=== PATIENT | female | born 1970 | race Caucasian/White ===

== ENCOUNTER 2023-02-09 07:28 | Outpatient (OUT) | payer OTHER, SELFPAY ==
[2023-02-09 07:54] LABS: Basophils Absolute Auto 0.1 10^3/uL (0.0-0.1); Basophils Percent Auto 0.7 % (0.2-2.0); Eosinophils Absolute Auto 0.1 10^3/uL (0.0-0.7); Eosinophils Percent Auto 1.5 % (0.9-7.0); Hematocrit 40.1 % (36.0-48.0); Hemoglobin 13.3 g/dL (12.0-16.0); Immature Granulocytes Abs Auto 0.04 10^3/uL (0.00-0.03); Immature Granulocytes Pct Auto 0.5 % (0.0-0.5); Lymphocytes Absolute Auto 2.1 10^3/uL (1.2-3.8); Lymphocytes Percent Auto 27.7 % (20.5-60.0); Mean Corpuscular HGB Conc 33.2 g/dL (29.9-35.2); Mean Corpuscular Hemoglobin 27.5 pg (26.7-34.0); Mean Platelet Volume 8.4 fL (9.5-13.5); Monocytes Absolute Auto 0.5 10^3/uL (0.3-0.8); Neutrophils Absolute Auto 4.8 10^3/uL (1.4-6.5); Neutrophils Percent Auto 63.6 % (43.0-75.0); Platelet Count 376 10^3/uL (150-450); Red Blood Count 4.83 10^6/uL (4.20-5.40); White Blood Count 7.5 10^3/uL (4.0-11.0)
[2023-02-09 09:45] LABS: Alanine Aminotransferase 25 U/L (14-59); Albumin Globulin Ratio 0.8; Albumin Level 3.4 g/dL (3.4-5.0); Alkaline Phosphatase 117 U/L (46-116); Anion Gap 14.7; Aspartate Amino Transferase 11 U/L (15-37); BUN Creatinine Ratio 17.1; Bilirubin Total 0.3 mg/dL (0.2-1.0); Calcium 8.7 mg/dL (8.5-10.1); Carbon Dioxide 25.2 mmol/L (21.0-32.0); Chloride 102 mmol/L (98-107); Chol HDL Ratio 4.4; Cholesterol 209 mg/dL (<=200); Estimated GFR (African America >60 (>=60); Estimated GFR (Non-African Ame >60 (>=60); Free T3 2.65 pg/mL (2.18-3.98); Globulin 4.1 g/dL; Glucose 107 mg/dL (74-106); HDL Cholesterol 47 mg/dL (40-60); Potassium 3.9 mmol/L (3.5-5.1); Sodium 138 mmol/L (136-145); Total Protein 7.5 g/dL (6.4-8.2); Triglycerides 271 mg/dL (<=150); VLDL CHOLESTEROL 54.2 mg/dL
[2023-02-09 09:46] LABS: Estimated Average Glucose 108 mg/dL; Glycohemoglobin A1C 5.4 % (4.5-6.2)
[2023-02-11 11:08] LABS: Insulin 29.1 uIU/mL (2.6-24.9)
== END 2023-02-09 07:29 | disposition home or self-care (01) ==
LOC: LAB 07:29
PROVIDERS: PCP Family Medicine; Visit Provider Family Medicine
DX: Z00.00 Encounter for general adult medical examination without abnormal findings (principal)
CPT/HCPCS: 36415; 80053; 80061; 83036; 83525; 84436; 84443; 84481; 85025

== ENCOUNTER 2023-02-13 16:57 | Outpatient (REF) | payer OTHER, SELFPAY ==
[2023-02-14 14:38] LABS: Occult Blood Negative
== END 2023-02-13 16:58 | disposition home or self-care (01) ==
LOC: LAB 16:57
PROVIDERS: PCP Family Medicine; Visit Provider Family Medicine
DX: Z12.12 Encounter for screening for malignant neoplasm of rectum (principal)
CPT/HCPCS: G0328

== ENCOUNTER 2023-02-26 20:50 | Outpatient (OUT) | payer OTHER, SELFPAY | END 2023-02-26 20:51 | disposition home or self-care (01) | LOC: SLEEP 20:50 | PROVIDERS: PCP Family Medicine; Visit Provider Family Medicine | DX: G47.33 Obstructive sleep apnea (adult) (pediatric) (principal) | CPT/HCPCS: 95810 ==

== ENCOUNTER 2023-03-20 20:46 | Outpatient (OUT) | payer OTHER, SELFPAY | END 2023-03-20 20:47 | disposition home or self-care (01) | LOC: SLEEP 20:55 | PROVIDERS: PCP Family Medicine; Visit Provider Family Medicine | DX: G47.33 Obstructive sleep apnea (adult) (pediatric) (principal) | CPT/HCPCS: 95811 ==

== ENCOUNTER 2024-02-05 10:19 | Outpatient (OUT) | payer OTHER, SELFPAY ==
[2024-02-05 11:21] LABS: Basophils Percent Auto 0.7 % (0.2-2.0); Eosinophils Absolute Auto 0.1 10^3/uL (0.0-0.7); Eosinophils Percent Auto 1.2 % (0.9-7.0); Hematocrit 42.5 % (36.0-48.0); Hemoglobin 13.3 g/dL (12.0-16.0); Immature Granulocytes Abs Auto 0.02 10^3/uL (0.00-0.03); Immature Granulocytes Pct Auto 0.3 % (0.0-0.5); Lymphocytes Percent Auto 33.9 % (20.5-60.0); Mean Corpuscular HGB Conc 31.3 g/dL (29.9-35.2); Mean Corpuscular Hemoglobin 26.8 pg (26.7-34.0); Mean Corpuscular Volume 85.7 fL (81.0-99.0); Mean Platelet Volume 9.3 fL (9.5-13.5); Monocytes Absolute Auto 0.3 10^3/uL (0.3-0.8); Monocytes Percent Auto 5.6 % (1.7-12.0); Neutrophils Absolute Auto 3.4 10^3/uL (1.4-6.5); Neutrophils Percent Auto 58.3 % (43.0-75.0); Platelet Count 343 10^3/uL (150-450); Red Blood Count 4.96 10^6/uL (4.20-5.40); Red Cell Distribution Width 13.1 % (11.0-15.0); White Blood Count 5.9 10^3/uL (4.0-11.0)
[2024-02-05 11:28] LABS: Alanine Aminotransferase 22 U/L (14-59); Albumin Globulin Ratio 0.9; Albumin Level 3.5 g/dL (3.4-5.0); Alkaline Phosphatase 127 U/L (46-116); Anion Gap 9.1; Aspartate Amino Transferase 10 U/L (15-37); BUN Creatinine Ratio 18.8; Bilirubin Total 0.5 mg/dL (0.2-1.0); Calcium 9.5 mg/dL (8.5-10.1); Carbon Dioxide 31.1 mmol/L (21.0-32.0); Chloride 105 mmol/L (98-107); Chol HDL Ratio 3.9; Cholesterol 206 mg/dL (<=200); Estimated GFR (African America >60 (>=60); Estimated GFR (Non-African Ame >60 (>=60); Globulin 3.9 g/dL; Glucose 96 mg/dL (74-106); HDL Cholesterol 53 mg/dL (40-60); Potassium 4.2 mmol/L (3.5-5.1); Sodium 141 mmol/L (136-145); Thyroid Stimulating Hormone 0.522 uIU/mL (0.358-3.740); Total Protein 7.4 g/dL (6.4-8.2); Triglycerides 142 mg/dL (<=150); VLDL CHOLESTEROL 28.4 mg/dL
[2024-02-05 11:29] LABS: Estimated Average Glucose 105 mg/dL; Glycohemoglobin A1C 5.3 % (4.5-6.2)
== END 2024-02-05 10:20 | disposition home or self-care (01) ==
LOC: LAB 10:21
PROVIDERS: PCP Family Medicine; Visit Provider Family Medicine
DX: Z00.00 Encounter for general adult medical examination without abnormal findings (principal); E03.9 Hypothyroidism, unspecified
CPT/HCPCS: 36415; 80053; 80061; 83036; 84439; 84443; 85025

== ENCOUNTER 2024-02-19 09:16 | Outpatient (OUT) | payer OTHER, SELFPAY ==
--- NOTE | 2024-02-19 09:19 | MM_ITS ---
Patient Name: NIKIA TORRES MR#: [id number] : 1970 Exam Date: 02/19/2024 Ordering Doctor: DR Tarun Ardon . RADIOLOGY REPORT PROCEDURE: MM TOMOSYNTHESIS SCREENING BI COMPARISON: MG MAMM SCREEN 3D SADI CAD, 02/21/2022. MG MAMM SCREEN SADI W CAD, 09/03/2018. INDICATIONS: Screening Calculator Name NCI Breast Cancer Risk Assessment Tool 5 Year Breast Cancer Risk 0.90% Lifetime Breast Cancer Risk 7.00% Personal Breast Cancer No Personal Ovarian Cancer No Treatments None Family Cancers Grandfather-paternal with lung cancer at age ~55. LOCATION: [facility] BREAST COMPOSITION: The breasts are heterogeneously dense,which may obscure small masses. FINDINGS: DIAGNOSTIC CATEGORY 1--NEGATIVE. RIGHT BREAST: No significant suspicious finding. No significant change has occurred. LEFT BREAST: No significant suspicious finding. No significant change has occurred. RECOMMENDATIONS: ROUTINE MAMMOGRAM AND CLINICAL EVALUATION IN 12 MONTHS. PLEASE NOTE: A NORMAL MAMMOGRAM DOES NOT EXCLUDE THE POSSIBILITY OF BREAST CANCER. A CLINICALLY SUSPICIOUS PALPABLE LUMP SHOULD BE BIOPSIED. Dictated by: Garett Zelaya M.D. on 02/19/2024 at 14:41 Approved by: Garett Zelaya M.D. on 02/19/2024 at 14:47
--- OUTSIDE RECORDS SUMMARY | 2024-02-19 09:22 | XMS_ITS | CCD ---
Author Organization [facility] Care Team Providers Care Crematory Attendant Name Role Phone LIZANDRO, DR PABON Admitting Unavailable MEGY, DR PABON Attending Unavailable HOY, DR PABON Consulting Unavailable HOY, DR PABON Primary Care Unavailable HOY, DR PABON Admitting Unavailable HOY, DR PABON Attending Unavailable HOY, DR PABON Consulting Unavailable HOY, DR PABON Primary Care Unavailable HOY, DR PABON Primary Care Unavailable HOY, DR PABON Admitting Unavailable HOY, DR PABON Attending Unavailable HOY, DR PABON Consulting Unavailable WEST, DR PARISH Yanes Consulting Unavailable PAY, DR STRONG Attending Unavailable PAY, DR STRONG Admitting Unavailable PAY, DR STRONG Consulting Unavailable LIZANDOR, DR PABON Primary Care Unavailable Sosa, Stevenson Consulting Unavailable JODI, DR SANDY Kincaid Consulting Unavailable JODI, DR SANDY Kincaid Admitting Unavailable LIZANDRO, DR PABON Primary Care Unavailable JODI, DR SANDY Kincaid Attending Unavailable SHAHID, DR CONLEY Attending Unavailable SHAHID, DR CONLEY Consulting Unavailable SHAHID, DR CONLEY Admitting Unavailable LIZANDRO, DR PABON Primary Care Unavailable Malinda Marion Unavailable Jessee AHUMADA Attending Unavailable Cm Ardon Referring Unavailable Medications Current Medications Medication Drug Class(es) Dates Sig (Normalized) Sig (Original) fluticasone propionate 0.05 mg/actuat metered dose nasal spray (1 source) Corticosteroid Start: 04-27-2023 take 2 spray(s) nasal route once daily Fluticasone Propionate 50 MCG/ACT 2 sprays Nasally Once a day for 14 day(s) Apr, Active levothyroxine (1 source) l-Thyroxine Levothyroxine Sodium Active liothyronine sodium 0.005 mg oral tablet (1 source) l-Triiodothyronine Liothyronine Sodium 5 MCG Oral for 30 Days Active predniSONE 20 mg oral tablet (1 source) Start: 04-27-2023 take 1 tablet by mouth every twelve hours predniSONE 20 MG 1 tablet Orally bid for 5 day(s) Apr, Active Problems Active Problems Problem Classification Problem Date Documented Da te Episodic/Chronic Disorders of teeth and jaw (6 sources) Other specified disorders of teeth and supporting structures; Translations: [Periapical abscess without sinus] Onset: 01-07-2022 Episodic Essential hypertension (1 source) Essential (primary) hypertension; Translations: [ESSENTIAL PRIMARY HYPERTENSION] Onset: 11-16-2021 Chronic Headache; including migraine (4 sources) Headache; including migraine; Translations: [HEADACHE UNSPECIFIED] Onset: 11-14-2021 Immunizations and screening for infectious disease (1 source) Contact with and (suspected) exposure to other viral communicable diseases Episodic Other aftercare (1 source) Other termite exterminator (current) drug therapy; Translations: [OTH LONG-TERM CURRENT DRUG THERAPY] Onset: 01-10-2022 Episodic Other screening for suspected conditions (not mental disorders or infectious disease) (4 sources) Encounter for screening mammogram for malignant neoplasm of breast; Translations: [ENC SCR MAMMO MALIG NEOPLASM BREAST] Onset: 02-21-2022 Episodic Other upper respiratory infections (1 source) Chronic sinusitis, unspecified; Translations: [CHRONIC SINUSITIS UNSPECIFIED] Onset: 01-08-2022 Chronic Other upper respiratory infections (1 source) Acute upper respiratory infection, unspecified Episodic Residual codes; unclassified (1 source) Family history of malignant neoplasm of trachea, bronchus and lung; Translations: [FAM HX MALIG NEOPLSM TRACH BRON LNG] Onset: 02-23-2022 Episodic Screening and history of mental health and substance abuse codes (1 source) Personal history of nicotine dependence; Translations: [PERSONAL HISTORY OF NICOTINE DEPEND] Onset: 01-08-2022 Episodic Past or Other Problems Problem Classification Problem Date Documented Da te Episodic/Chronic Fluid and electrolyte disorders (1 source) Dehydration; Translations: [DEHYDRATION] Onset: 11-16-2021 Episodic Syncope (1 source) Syncope and collapse; Translations: [SYNCOPE AND COLLAPSE] Onset: 11-16-2021 Episodic Results Test Name Value Interpretation Reference Range Facility COVID + FLU Quick Testingon 04-27-2023 SARS-CoV-2 (COVID-19) RNA ILDEFONSO+probe Ql (Unsp spec) Negative [employer] Other COVID + FLU Quick Testing Negative [employer] Other MG MAMM SCREEN 3D SADI CADon 02-21-2022 MG MAMM SCREEN 3D SADI CAD Patient: NIKIA TORRES Exam Date: 02/21/2022 : 1970 Gender:F Ordering : DR CM ARDON . Admission #: [id number] Family : Order #: [id number] CLICK HERE TO VIEW EXAM RADIOLOGY REPORT PROCEDURE: MAMMOGRAM SCREENING 3D BILATERAL CAD COMPARISON: MG MAMM SCREEN SADI W CAD, 09/03/2018. INDICATIONS: Screening mammography Calculator Name NCI Breast Cancer Risk Assessment Tool 5 Year Breast Cancer Risk 0.80% Lifetime Breast Cancer Risk 7.20% Personal Breast Cancer No Personal Ovarian Cancer No Treatments None Family Cancers Grandfather-paternal with lung cancer at age 55. LOCATION: [facility] BREAST COMPOSITION: Heterogeneously dense,which may obscure small masses. FINDINGS: DIAGNOSTIC CATEGORY 2--BENIGN FINDING. NO CHANGE FROM COMPARISON. Scattered benign-appearing lymph nodes are present. RIGHT BREAST: No significant suspicious finding. Stable cluster of microcalcifications identified posterior inner breast at the chest wall, best seen on the CC projection. LEFT BREAST: No significant suspicious finding. RECOMMENDATIONS: ROUTINE MAMMOGRAM AND CLINICAL EVALUATION IN 12 MONTHS. PLEASE NOTE: A NORMAL MAMMOGRAM DOES NOT EXCLUDE THE POSSIBILITY OF BREAST CANCER. A CLINICALLY SUSPICIOUS PALPABLE LUMP SHOULD BE BIOPSIED. Dictated by: Parish Arredondo MD on 02/21/2022 at 12:10 Approved by: Parish Arredondo MD on 02/21/2022 at 12:26 Normal [facility] OCC BLD IMMUNO SCREENon 01-12 OCCULT BLOOD Negative Normal NEGATIVE [facility] Comment on above: Performed By: #### O BSCRN #### [facility] [address] [address] [address] Lucille Lama INSULINon 01-19-2022 Insulin 25.6 uIU/mL Critically high 2.6-24.9 [facility] Comment on above: Performed By: #### I NSULIN #### [facility] [address] [address] [address] Lucille Lama CBC AUTO DIFFon 01-18-2022 BASO # 0.0 103/ul Normal 0.0-0.1 [facility] Comment on above: Performed By: #### C BC #### [facility] [address] [address] [address] Lucille Lama Basophils/100 WBC (Bld) 0.5 % Normal 0.2-2.0 [facility] Comment on above: Performed By: #### C BC #### [facility] [address] [address] [address] Lucille Lama EO # 0.1 103/ul Normal 0.0-0.7 [facility] Comment on above: Performed By: #### C BC #### [facility] [address] [place] [address] Dr. Lucille Lama Eosinophils/100 WBC (Bld) 1.5 % Normal 0.9-7.0 [facility] Comment on above: Performed By: #### C BC #### [facility] [address] [place] [address] Dr. Lucille Lama Erythrocyte distribution width (RBC) [Ratio] 12.5 % Normal 11.0-15.0 [facility] Comment on above: Performed By: #### C BC #### [facility] [address] [place] [address] Dr. Lucille Lama Hematocrit (Bld) [Volume fraction] 42.7 % Normal 36.0-48.0 [facility] Comment on above: Performed By: #### C BC #### [facility] [address] [place] [address] Dr. Lucille Lama Hemoglobin (Bld) [Mass/Vol] 13.2 g/dL Normal 12.0-16.0 [facility] Comment on above: Performed By: #### C BC #### [facility] [address] [place] [address] Dr. Lucille Lama IG # 0.05 10e3/ul Critically high 0.00-0.03 [facility] Comment on above: Performed By: #### C BC #### [facility] [address] [place] [address] Dr. Lucille Lama IG % 0.6 % Critically high 0.0-0.5 [facility] Comment on above: Performed By: #### C BC #### [facility] [address] [place] [address] Dr. Lucille Lama LYMPH # 2.3 103/ul Normal 1.2-3.8 [facility] Comment on above: Performed By: #### C BC #### [facility] [address] [place] [address] Dr. Lucille Lama Lymphocytes/100 WBC (Bld) 28.6 % Normal 20.5-60.0 [facility] Comment on above: Performed By: #### C BC #### [facility] [address] [place] [address] Dr. Lucille Lama MANUAL DIFF REQ NO Normal [facility] Comment on above: Performed By: #### C BC #### [facility] [address] [place] [address] Dr. Lucille Lama MCH (RBC) [Entitic mass] 26.2 pg Critically low 26.7-34.0 [facility] Comment on above: Performed By: #### C BC #### [facility] [address] [place] [address] Dr. Lucille Lama MCHC (RBC) [Mass/Vol] 30.9 g/dL Normal 29.9-35.2 [facility] Comment on above: Performed By: #### C BC #### [facility] [address] [place] [address] Dr. Lucille Lama MCV (RBC) [Entitic vol] 84.9 fL Normal 81.0-99.0 [facility] Comment on above: Performed By: #### C BC #### [facility] [address] [place] [address] Dr. Lucille Lama MONO # 0.4 103/ul Normal 0.3-0.8 [facility] Comment on above: Performed By: #### C BC #### [facility] [address] [place] [address] Dr. Lucille Lama Monocytes/100 WBC (Bld) 5.2 % Normal 1.7-12.0 [facility] Comment on above: Performed By: #### C BC #### [facility] [address] [place] [address] Dr. Luiclle Lama NEUT # 5.0 103/ul Normal 1.4-6.5 [facility] Comment on above: Performed By: #### C BC #### [facility] [address] [place] [address] Dr. Lucille Lama Neutrophils/100 WBC (Bld) 63.6 % Normal 43.0-75.0 [facility] Comment on above: Performed By: #### C BC #### [facility] [address] [place] [address] Dr. Lucille Lama Platelet mean volume (Bld) [Entitic vol] 8.5 fL Critically low 9.5-13.5 [facility] Comment on above: Performed By: #### C BC #### [facility] [address] [place] [address] Dr. Lucille Lama PLT 436 103/ul Normal 150-450 [facility] Comment on above: Performed By: #### C BC #### [facility] [address] [place] [address] Dr. Lucille Lama RBC 5.03 106/ul Normal 4.20-5.40 [facility] Comment on above: Performed By: #### C BC #### [facility] [address] [place] [address] Dr. Lucille Lama WBC 7.9 103/ul Normal 4.0-11.0 [facility] Comment on above: Performed By: #### C BC #### [facility] [address] [place] [address] Dr. Lucille Lama FREE THYROXINE INDEX T7on FTI 2.34 Normal 1.30-4.50 [facility] Comment on above: Performed By: #### C MP, TSH, LIPID, T7 ####[facility] [address] [address]Dr. Lucille Lama T3U 30.0 % Normal 30.0-39.0 [facility] Comment on above: Performed By: #### C MP, TSH, LIPID, T7 ####[facility] [address] [address]DrJessica Lama T4 [Mass/Vol] 7.80 ug/dL Normal 4.80-13.[address] [facility] Comment on above: Performed By: #### C MP, TSH, LIPID, T7 ####[facility] [address] [id number] Lama GLYCOHEMOGLOBIN A1Con 2021 ADA RECOMMENDATION SEE BELOW Normal [facility] Comment on above: Result Comment: ADA RECOMMENDED LIMIT 4.0 - 6.0 ADA THERAPEUTIC TARGET < 7.0 ACTION SUGGESTED > 7.0 Performed By: #### A 1C ####[facility] [address] [address]Dr. Lucille Lama Glucose [Mass/Vol] 120 mg/dL Normal [facility] Comment on above: Performed By: #### A 1C ####[facility] [address] [address]Dr. Lucille Lama HbA1c (Bld) [Mass fraction] 5.8 % Normal 4.5-6.2 [facility] Comment on above: Performed By: #### A 1C ####[facility] [address] [address]Dr. Lucille Lama IRONon 01-18-2022 Iron [Mass/Vol] 48.0 ug/dL Critically low 50.0-170.0 [facility] Comment on above: Performed By: #### I BRIANA #### [facility] [address] [address] [address] Lucille Lama LIPID PROFILEon 01-18-2022 CHOL-HDL RATIO NORM SEE BELOW Normal [facility] Comment on above: Result Comment: 3.3 - 4.4 LOW RISK 4.4 - 7.1 AVERAGE RISK 7.1 - 11.0 MODERATE RISK >11.0 HIGH RISK Performed By: #### C MP, TSH, LIPID, T7 ####[facility] [address] [address]Dr. Lucille Lama Cholesterol [Mass/Vol] 217 mg/dL Critically high <=200 [facility] Comment on above: Performed By: #### C MP, TSH, LIPID, T7 ####[facility] [address] [place], [place] [address]Ee. Lucille Lama Cholesterol in HDL [Mass/Vol] 38 mg/dL Critically low 40-60 [facility] Comment on above: Performed By: #### C MP, TSH, LIPID, T7 ####[facility] [address] [id number]. Lucille Lama Cholesterol in LDL [Mass/Vol] 124.8 mg/dL Normal [facility] Comment on above: Performed By: #### C MP, TSH, LIPID, T7 ####[facility] [address] [id number]. Lucille Lama Cholesterol.total/Ch olesterol in HDL [Mass ratio] 5.7 {ratio} Normal [facility] Comment on above: Performed By: #### C MP, TSH, LIPID, T7 ####[facility] [address] [id number]. Lucille Lama HDL NORMAL > or = 60 mg/dl - LOW CARDIOVASCULAR RISK <40 mg/dl - HIGH CARDIOVASCULAR RISK Normal [facility] Comment on above: Performed By: #### C MP, TSH, LIPID, T7 ####[facility] [address] [id number]. Lucille Lama LDL CALC NORMAL SEE BELOW Normal [facility] Comment on above: Result Comment: <100 mg/dl OPTIMAL 100 - 129 mg/dl NEAR OR ABOVE OPTIMAL 130 - 159 mg/dl BORDERLINE HIGH 160 - 189 mg/dl HIGH >190 mg/dl VERY HIGH Performed By: #### C MP, TSH, LIPID, T7 ####[facility] [address] [id number]. Lucille Lama Triglyceride [Mass/Vol] 271 mg/dL Critically high <=150 [facility] Comment on above: Performed By: #### C MP, TSH, LIPID, T7 ####[facility] [address] [address]Dr. Lucille Lama VLDL CALC 54.2 mg/dL Normal [facility] Comment on above: Performed By: #### C MP, TSH, LIPID, T7 ####[facility] [address] [address]Dr. Lucille Lama PROF 14(COMP METB)on 022 Albumin [Mass/Vol] 3.4 g/dL Normal 3.4-5.0 [facility] Comment on above: Performed By: #### C MP, TSH, LIPID, T7 ####[facility] [address] [address]Dr. Lucille Lama Albumin/Globulin [Mass ratio] 0.8 {ratio} Normal [facility] Comment on above: Performed By: #### C MP, TSH, LIPID, T7 ####[facility] [address] [address]Dr. Lucille Lama ALP [Catalytic activity/Vol] 115 U/L Normal 46-116 [facility] Comment on above: Performed By: #### C MP, TSH, LIPID, T7 ####[facility] [address] [address]Dr. Lucille Lama ALT [Catalytic activity/Vol] 35 U/L Normal 14-59 [facility] Comment on above: Performed By: #### C MP, TSH, LIPID, T7 ####[facility] [address] [address]Dr. Lucille Lama Anion gap [Moles/Vol] 11.4 mmol/L Normal [facility] Comment on above: Performed By: #### C MP, TSH, LIPID, T7 ####[facility] [address] [address]Dr. Lucille Lama AST [Catalytic activity/Vol] 16 U/L Normal 15-37 [facility] Comment on above: Performed By: #### C MP, TSH, LIPID, T7 ####[facility] [address] [address]Dr. Lucille Lama Bilirubin [Mass/Vol] 0.5 mg/dL Normal 0.2-1.0 [facility] Comment on above: Performed By: #### C MP, TSH, LIPID, T7 ####[facility] [address] [address]Dr. Lucille Lama Calcium [Mass/Vol] 9.0 mg/dL Normal 8.5-10.1 [facility] Comment on above: Performed By: #### C MP, TSH, LIPID, T7 ####[facility] [address] [place], [place] [address]Dr. Lucille Lama Chloride [Moles/Vol] 103 mmol/L Normal 98-107 [facility] Comment on above: Performed By: #### C MP, TSH, LIPID, T7 ####[facility] [address] [place], [place] [address]Dr. Lucille Lama CO2 [Moles/Vol] 26.4 mmol/L Normal 21.0-32.[address] [facility] Comment on above: Performed By: #### C MP, TSH, LIPID, T7 ####[facility] [address] [place], [place] [address]Dr. Lucille Lama Creatinine [Mass/Vol] 0.76 mg/dL Normal 0.55-1.02 [facility] Comment on above: Performed By: #### C MP, TSH, LIPID, T7 ####[facility] [address] [place], [place] [address]Dr. Lucille Lama EGFR-AF [place]IZ[place] >60 Normal >=[address] [facility] Comment on above: Performed By: #### C MP, TSH, LIPID, T7 ####[facility] [address] [place], [place] [address]Dr. Lucille Lama EGFR-NON AF [place]IZEN [place] >60 Normal >=60 [facility] Comment on above: Performed By: #### C MP, TSH, LIPID, T7 ####[facility] [address] [place], [place] [address]Dr. Lucille Lama Globulin (S) [Mass/Vol] 4.2 g/dL Normal [facility] Comment on above: Performed By: #### C MP, TSH, LIPID, T7 ####[facility] [address] [id number]. Lucille Lama Glucose [Mass/Vol] 89 mg/dL Normal 74-106 [facility] Comment on above: Performed By: #### C MP, TSH, LIPID, T7 ####[facility] [address] [address]Dr. Lucille Lama Potassium [Moles/Vol] 3.8 mmol/L Normal 3.5-5.1 [facility] Comment on above: Performed By: #### C MP, TSH, LIPID, T7 ####[facility] [address] [id number]. Lucille Lama Protein [Mass/Vol] 7.6 g/dL Normal 6.4-8.2 [facility] Comment on above: Performed By: #### C MP, TSH, LIPID, T7 ####[facility] [address] [address]Dr. Lucille Lama Sodium [Moles/Vol] 137 mmol/L Normal 136-145 [facility] Comment on above: Performed By: #### C MP, TSH, LIPID, T7 ####[facility] [address] [address]Dr. Lucille Lama Urea nitrogen [Mass/Vol] 8.0 mg/dL Normal 7.0-18.0 [facility] Comment on above: Performed By: #### C MP, TSH, LIPID, T7 ####[facility] [address] [address]Dr. Lucille Lama Urea nitrogen/Creatinine [Mass ratio] 10.5 mg/mg Normal [facility] Comment on above: Performed By: #### C MP, TSH, LIPID, T7 ####[facility] [address] [address]Dr. Lucille Lama TSHon 01-18-2022 TSH 1.277 uIU/mL Normal 0.358-3.740 [facility] Comment on above: Performed By: #### C MP, TSH, LIPID, T7 ####[facility] [address] [place], [place] [address]Dr. Lucille Lama CBC AUTO DIFFon 01-07-2022 BASO # 0.1 103/ul Normal 0.0-0.1 [facility] Comment on above: Performed By: #### C BC ####[facility] [address] [id number]. Lucille Lama Basophils/100 WBC (Bld) 0.4 % Normal 0.2-2.0 [facility] Comment on above: Performed By: #### C BC ####[facility] [address] [place], [place] [address]Dr. Lucille Lama EO # 0.0 103/ul Normal 0.0-0.7 [facility] Comment on above: Performed By: #### C BC ####[facility] [address] [place], [place] [address]Dr. Lucille Lama Eosinophils/100 WBC (Bld) 0.2 % Critically low 0.9-7.0 [facility] Comment on above: Performed By: #### C BC ####[facility] [address] [place], [place] [address]Dr. Lucille Lama Erythrocyte distribution width (RBC) [Ratio] 12.4 % Normal 11.0-15.0 [facility] Comment on above: Performed By: #### C BC ####[facility] [address] [place], [place] [address]Dr. Lucille Lama Hematocrit (Bld) [Volume fraction] 44.5 % Normal 36.0-48.0 [facility] Comment on above: Performed By: #### C BC ####[facility] [address] [place], [place] [address]Dr. Lucille Lama Hemoglobin (Bld) [Mass/Vol] 14.2 g/dL Normal 12.0-16.0 [facility] Comment on above: Performed By: #### C BC ####[facility] [address] [place], [place] [address]Dr. Lucille Kelby IG # 0.05 10e3/ul Critically high 0.00-0.03 [facility] Comment on above: Performed By: #### C BC ####[facility] [address] [id number]. Lucille Kelby IG % 0.4 % Normal 0.0-0.5 [facility] Comment on above: Performed By: #### C BC ####[facility] [address] [address]Dr. Lucille Kelby LYMPH # 1.7 103/ul Normal 1.2-3.8 [facility] Comment on above: Performed By: #### C BC ####[facility] [address] [id number]. Lucille Kelby Lymphocytes/100 WBC (Bld) 13.5 % Critically low 20.5-60.0 [facility] Comment on above: Performed By: #### C BC ####[facility] [address] [address]Dr. Adepatricia Lama MANUAL DIFF REQ NO Normal [facility] Comment on above: Performed By: #### C BC ####[facility] [address] [id number]. Lucille Kelby MCH (RBC) [Entitic mass] 26.5 pg Critically low 26.7-34.0 [facility] Comment on above: Performed By: #### C BC ####[facility] [address] [address]Dr. Lucille Lama MCHC (RBC) [Mass/Vol] 31.9 g/dL Normal 29.9-35.2 [facility] Comment on above: Performed By: #### C BC ####[facility] [address] [id number]. Lucille Kelby MCV (RBC) [Entitic vol] 83.0 fL Normal 81.0-99.0 [facility] Comment on above: Performed By: #### C BC ####[facility] [address] [place], [place] [address]Dr. Lucille Lama MONO # 0.5 103/ul Normal 0.3-0.8 [facility] Comment on above: Performed By: #### C BC ####[facility] [address] [address]Dr. Lucille Lama Monocytes/100 WBC (Bld) 4.1 % Normal 1.7-12.0 [facility] Comment on above: Performed By: #### C BC ####[facility] [address] [address]Dr. Lucille Lama NEUT # 10.0 103/ul Critically high 1.4-6.[address] [facility] Comment on above: Performed By: #### C BC ####[facility] [address] [address]Dr. Lucille Lama Neutrophils/100 WBC (Bld) 81.4 % Critically high 43.0-75.0 [facility] Comment on above: Performed By: #### C BC ####[facility] [address] [address]Dr. Lucille Lama Platelet mean volume (Bld) [Entitic vol] 8.8 fL Critically low 9.5-13.5 [facility] Comment on above: Performed By: #### C BC ####[facility] [address] [address]Dr. Lucille Lama PLT 375 103/ul Normal 150-450 [facility] Comment on above: Performed By: #### C BC ####[facility] [address] [place], [place] [address]Dr. Lucille Lama RBC 5.36 106/ul Normal 4.20-5.40 [facility] Comment on above: Performed By: #### C BC ####[facility] [address] [place], [place] [address]Dr. Lucille Lama WBC 12.3 103/ul Critically high 4.0-11.[address] [facility] Comment on above: Performed By: #### C BC ####[facility] [address] [place], [place] [address]Dr. Lucille Lama LACTATE/LACTIC ACIDon 2021 Lactate [Moles/Vol] 1.3 mmol/L Normal 0.4-1.9 [facility] [place] Comment on above: Performed By: #### L ACT #### [facility] [address] [address] [address] Lucille Lama CARDIAC SANDY ADMITon 022 CK [Catalytic activity/Vol] 36 U/L Normal 26-192 [facility] Comment on above: Performed By: #### T SH, CMADM, CMP ####[facility] [address] [id number]. Lucille Lama CK.MB [Mass/Vol] 0.63 ng/mL Normal <=3.[address] [facility] Comment on above: Performed By: #### T SH, CMADM, CMP ####[facility] [address] [address]DrJessica Lama HSTROP 5.5 pg/mL Normal 4.0-51.3 [facility] Comment on above: Result Comment: CUT- OFF POINTS HAVE BEEN ESTABLISHED BASED ON THE FOURTH UNIVERSAL DEFINITIONS OF MYOCARDIAL INFARCTION. THE UPPER REFERENCE LIMIT (URL) OF TROPONIN, DEFINED THE 99TH PERCENTILE OF cTnI DISTRIBUTION IN A REFERENCE POPULATION, HAS BEEN CONFIRMED THE DECISION THRESHOLD FOR [place] DIAGNOSIS. Performed By: #### T MARLON, CMADM, CMP ####[facility] [id number] [address]Dr. Lucille Lama FREDA 30 ng/mL Normal 9-82 [facility] Comment on above: Performed By: #### T SH, CMADM, CMP ####[facility] [id number] [id number]. Lucille Lama CBC AUTO DIFFon 11-15-2021 BASO # 0.0 103/ul Normal 0.0-0.1 [facility] Comment on above: Performed By: #### C BC #### [facility] [address] [address] [address] Lucille Lama Basophils/100 WBC (Bld) 0.4 % Normal 0.2-2.0 [facility] Comment on above: Performed By: #### C BC #### [facility] [address] [address] [address] Lucille Lama EO # 0.1 103/ul Normal 0.0-0.7 [facility] Comment on above: Performed By: #### C BC #### [facility] [address] [place] [address] Dr. Lucille Lama Eosinophils/100 WBC (Bld) 1.0 % Normal 0.9-7.0 [facility] Comment on above: Performed By: #### C BC #### [facility] [address] [place] [address] Dr. Lucille Lama Erythrocyte distribution width (RBC) [Ratio] 12.6 % Normal 11.0-15.0 [facility] Comment on above: Performed By: #### C BC #### [facility] [address] [place] [address] Dr. Lucille Lama Hematocrit (Bld) [Volume fraction] 43.1 % Normal 36.0-48.0 [facility] Comment on above: Performed By: #### C BC #### [facility] [address] [place] [address] Dr. Lucille Lama Hemoglobin (Bld) [Mass/Vol] 13.4 g/dL Normal 12.0-16.0 [facility] Comment on above: Performed By: #### C BC #### [facility] [address] [place] [address] Dr. Lucille Lama IG # 0.03 10e3/ul Normal 0.00-0.03 [facility] Comment on above: Performed By: #### C BC #### [facility] [address] [place] [address] Dr. Lucille Lama IG % 0.4 % Normal 0.0-0.5 [facility] Comment on above: Performed By: #### C BC #### [facility] [address] [place] [address] Dr. Lucille Lama LYMPH # 1.3 103/ul Normal 1.2-3.8 [facility] Comment on above: Performed By: #### C BC #### [facility] [address] [place] [address] Dr. Lucille Lama Lymphocytes/100 WBC (Bld) 15.4 % Critically low 20.5-60.0 [facility] Comment on above: Performed By: #### C BC #### [facility] [address] [place] [address] Dr. Lucille Lama MANUAL DIFF REQ NO Normal [facility] Comment on above: Performed By: #### C BC #### [facility] [address] [place] [address] Dr. Lucille Lama MCH (RBC) [Entitic mass] 26.7 pg Normal 26.7-34.0 [facility] Comment on above: Performed By: #### C BC #### [facility] [address] [place] [address] Dr. Lucille Lama MCHC (RBC) [Mass/Vol] 31.1 g/dL Normal 29.9-35.2 [facility] Comment on above: Performed By: #### C BC #### [facility] [address] [place] [address] Dr. Lucille Lama MCV (RBC) [Entitic vol] 86.0 fL Normal 81.0-99.0 [facility] Comment on above: Performed By: #### C BC #### [facility] [address] [place] [address] Dr. Lucille Lama MONO # 0.4 103/ul Normal 0.3-0.8 [facility] Comment on above: Performed By: #### C BC #### [facility] [address] [place] [address] Dr. Lucille Lama Monocytes/100 WBC (Bld) 4.8 % Normal 1.7-12.0 [facility] Comment on above: Performed By: #### C BC #### [facility] [address] [place] [address] Dr. Lucille Lama NEUT # 6.5 103/ul Normal 1.4-6.5 [facility] Comment on above: Performed By: #### C BC #### [facility] [address] [place] [address] Dr. Lucille Lama Neutrophils/100 WBC (Bld) 78.0 % Critically high 43.0-75.0 [facility] Comment on above: Performed By: #### C BC #### [facility] [address] [place] [address] Dr. Lucille Lama Platelet mean volume (Bld) [Entitic vol] 8.5 fL Critically low 9.5-13.5 [facility] Comment on above: Performed By: #### C BC #### [facility] [address] [place] [address] Dr. Lucille Lama PLT 375 103/ul Normal 150-450 [facility] Comment on above: Performed By: #### C BC #### [facility] [address] [place] [address] Dr. Lucille Lama RBC 5.01 106/ul Normal 4.20-5.40 [facility] Comment on above: Performed By: #### C BC #### [facility] [address] [place] [address] Dr. Lucille Lama WBC 8.4 103/ul Normal 4.0-11.0 [facility] Comment on above: Performed By: #### C BC #### [facility] [address] [place] [address] HEAD WO CONon 11-15-2021 CT HEAD WO CON NONCONTRAST CT SCAN OF THE HEAD CT HEAD WO CON HISTORY: HEADACHE TECHNIQUE: Multiple axial images are taken from the level the vertex down to the base of the skull without the use of IV contrast. Images were then reconstructed in the sagittal and coronal planes. This exam was performed according to our departmental dose-optimization program which includes use of Automated Exposure Control, adjustment of the mA and/or kV according to patient size and/or use of iterative reconstruction technique. COMPARISON: None. FINDINGS: Brain Parenchyma: No intracranial mass. No intracranial hemorrhage. Steinberg-white matter within expected limits of normal for patient's age. Posterior fossa: Normal. Midline shift: None Extra-axial fluid collection: None Ventricles: Normal. Mastoid air cells: Normal. Sinuses: Normal. Cranium: No depressed skull fracture. Soft tissues: Normal. Orbits: Normal. IMPRESSION: 1. No noncontrast CT evidence for acute intracranial pathology. 2. If symptoms continue and if clinically indicated, MRI may help better delineate. Electronically authenticated by: STEVENSON COTTRELL Date: 2021-11-14 23:28 Normal [facility] PROF 14(COMP METB)on 022 Albumin [Mass/Vol] 3.5 g/dL Normal 3.4-5.0 [facility] Comment on above: Performed By: #### T MARLON, CMADM, CMP #### [facility] [address] [address] [address] Lucille Lama Albumin/Globulin [Mass ratio] 0.9 {ratio} Normal [facility] Comment on above: Performed By: #### T MARLON, CMADM, CMP #### [facility] [address] [address] [address] Lucille Lama ALP [Catalytic activity/Vol] 133 U/L Critically high 46-116 [facility] Comment on above: Performed By: #### T MARLON, CMADM, CMP #### [facility] [address] [place] [address] Dr. Lucille Lama ALT [Catalytic activity/Vol] 28 U/L Normal 14-59 [facility] Comment on above: Performed By: #### T MARLON, CMADM, CMP #### [facility] [address] [address] [address] Lucille Lama Anion gap [Moles/Vol] 9.0 mmol/L Normal [facility] Comment on above: Performed By: #### T MARLON, CMADM, CMP #### [facility] [address] [place] [address] Dr. Lucille Lama AST [Catalytic activity/Vol] 15 U/L Normal 15-37 [facility] Comment on above: Performed By: #### T MARLON, CMADM, CMP #### [facility] [address] [address] [address] Lucille Lama Bilirubin [Mass/Vol] 0.6 mg/dL Normal 0.2-1.0 [facility] Comment on above: Performed By: #### T MARLON, CMADM, CMP #### [facility] [address] [address] [address] Lucille Lama Calcium [Mass/Vol] 8.5 mg/dL Normal 8.5-10.1 [facility] Comment on above: Performed By: #### T MARLON, CMADM, CMP #### [facility] [address] [address] [address] Lucille Lama Chloride [Moles/Vol] 101 mmol/L Normal 98-107 [facility] Comment on above: Performed By: #### T MARLON, CMADM, CMP #### [facility] [address] [address] [address] Lucille Lama CO2 [Moles/Vol] 27.6 mmol/L Normal 21.0-32.0 [facility] Comment on above: Performed By: #### T MARLON CMADM, CMP #### [facility] [address] [place] [address] Dr. Lucille Lama Creatinine [Mass/Vol] 0.81 mg/dL Normal 0.55-1.02 [facility] Comment on above: Performed By: #### T ZENAIDA MASONDM, CMP #### [facility] [address] [place] [address] Dr. Lucille Lama EGFR-AF [place] >60 Normal >=60 [facility] Comment on above: Performed By: #### T ZENAIDA MASONDM, CMP #### [facility] [address] [place] [address] Dr. Lucille Lama EGFR-NON AF CITIZEN OF [place] >60 Normal >=60 [facility] Comment on above: Performed By: #### T ZENAIDA MASONDM, CMP #### [facility] [address] [address] [address] Lucille Lama Globulin (S) [Mass/Vol] 4.1 g/dL Normal [facility] Comment on above: Performed By: #### T MARLON, CMADM, CMP #### [facility] [address] [place] [address] Dr. Lucille Lama Glucose [Mass/Vol] 114 mg/dL Critically high 74-106 [facility] Comment on above: Performed By: #### T MARLON, CMADM, CMP #### [facility] [address] [place] [address] Dr. Lucille Lama Potassium [Moles/Vol] 3.6 mmol/L Normal 3.5-5.1 [facility] Comment on above: Performed By: #### T BRADY MASON, CMP #### [facility] [address] [place] [address] Dr. Lucille Lama Protein [Mass/Vol] 7.6 g/dL Normal 6.1-8.2 [facility] Comment on above: Performed By: #### T BRADY MASON, CMP #### [facility] [address] [address] [address] Lucille Lama Sodium [Moles/Vol] 134 mmol/L Critically low 136-145 [facility] Comment on above: Performed By: #### T BRADY MASON, CMP #### [facility] [address] [place] [address] Dr. Lucille Lama Urea nitrogen [Mass/Vol] 9.0 mg/dL Normal 7.0-18.0 [facility] Comment on above: Performed By: #### T BRADY MASON, CMP #### [facility] [address] [place] [address] Dr. Lucille Lama Urea nitrogen/Creatinine [Mass ratio] 11.1 mg/mg Normal [facility] Comment on above: Performed By: #### T BRADY MASON, CMP #### [facility] [address] [place] [address] Dr. Lucille Lama TSHon 11-15-2021 TSH 0.963 uIU/mL Normal 0.470-4.[address] [facility] Comment on above: Performed By: #### T BRADY MASON, CMP #### [facility] [address] [place] [address] Dr. Lucille Lama TSH RANGE SEE BELOW Normal [facility] Comment on above: Result Comment: <0.3 4 UIU/ml HYPERTHYROID 0.34-5.60 UIU/ml EUTHYROID >5.60 UIU/ml HYPOTHYROID Performed By: #### T BRADY MASON, CMP #### [facility] [address] [place] [address] Dr. Lucille Lama XR CHEST 2 Von 11-15-2021 XR CHEST 2 V CXR HISTORY: Shortness of breath. COMPARISON: None. TECHNIQUE: 2 view of the chest submitted for review. FINDINGS: The lungs are hyperaerated with increased retrosternal airspace and flattening of the hemidiaphragms. The cardiac silhouette measures within normal. Pulmonary vascularity is unremarkable. Osseous structures are normal for age. IMPRESSION: 1. Hyperexpanded lungs which can be seen in the setting of COPD. 2. Otherwise no plain film evidence for acute cardiopulmonary disease. Electronically authenticated by: STEVENSON COTTRELL Date: 2021-11-14 23:29 Normal [facility] Vital Signs Date Time Vital Sign Value Performing Clinician Facility 04-27-2023 13:45-0400 Body height 177.8 cm Malinda Marion Other [facility] Other 04-27-2023 13:45-0400 Body mass index (BMI) [Ratio] 35.01 kg/m2 Malinda Marion Other [facility] Other 04-27-2023 13:45-0400 Body temperature 98.1 [degF] Malinda Marion Other [facility] Other 04-27-2023 13:45-0400 Body weight 110.68 kg Malinda Marion Other [facility] Other 04-27-2023 13:45-0400 Diastolic blood pressure 79 mm[Hg] Malinda Marion Other [facility] Other 04-27-2023 13:45-0400 Respiratory rate 18 /min Malinda Marion Other [facility] Other 04-27-2023 13:45-0400 SaO2% (BldA) [Mass fraction] 96 % Malinda Marion Other [facility] Other 04-27-2023 13:45-0400 Systolic blood pressure 142 mm[Hg] Malinda Marion Other [facility] Other Encounters Encounter Date Encounter Type Care Provider Facility Start: 03-10-2024 ambulatory [place] [facility] Facility :[facility]ALIE Sanz Start: 02-06-2024 ambulatory [place] [facility] Facility:Ade Sanz Start: 04-27-2023 End: 04-27-2023 ambulatory Malinda Marion Other [facility] Other Start: 04-27-2023 Office outpatient vi sit 15 minutes Malinda Marion [facility] Start: 02-21-2022 End: 02-22-[address] CM ARDON Facility:[facility] Start: 01-25-2022 Encounter for genera l adult medical examination without abnormal findings DR CM ARDON [facility] Start: 01-24-2022 End: 01-24-[address] CM ARDON Facility:[facility] Start: 01-24-2022 End: 01-24-2022 Encounter for general adult medical examination without abnormal findings DR CM ARDON Facility:[facility] Start: 01-18-2022 End: 01-19-[address] CM ARDON Facility:[facility] Start: 01-07-2022 End: 01-07-[address] JARVIS KEY Facility:[facility] Start: 01-06-2022 End: 01-07-[address] SANDY ZAPATA Facility:[facility] Start: 11-14-2021 End: 11-15-[address] TAE KIMBLE Facility:[facility] Payers Date Payer Category Payer Unknown [id number] 2.16.84 [id number] 1970 Unknown [id number] 2.16.84 [id number] 1970 Unknown [id number] 2.16.84 [id number] 1970 Unknown [id number] 2.16.84 [id number] 1970 Unknown [id number] 2.16.84 [id number] 1970 Unknown [id number] 2.16.84 [id number] 1970 Unknown [id number] 2.16.8 [id number] 1959 Unknown [id number] Social History Date Type Detail Facility Unknown if ever smoked [facility] Other Sex Assigned At Sex Assigned At Bir th [facility] Other Evaluation note 04-27-2023 Note Date & Type Note Facility 04-27-2023 Evaluation note Encounter Date Diagnosis Assessment Notes Apr, Contact with and (suspected) exposure to other viral communicable diseases (ICD-10 - Z20.828) Apr, Viral upper respiratory infection (ICD-10 - J06.9) Viral upper respiratory infection: adult home care material was printed Plenty fluids, get plenty of rest. Take the prednisone as prescribed until gone. You may continue to take Mucinex and/or Sudafed for nasal congestion. Use the fluticasone nasal spray as prescribed until your symptoms improve. Consider trying the nasal saline rinses for comfort. Follow-up with your family physician if no improvement in 2 to 3 days [facility] Other History general Narrative - Reported Note Date & Type Note Facility History general Narrative - Reported Type Medical History neuropathy Medical History thyroid disease Surgical History partial hysterectomy Surgical History C section Hospitalization History see above [facility] Other Summary Purpose Family History No Family History Records FoundNo Family History Records Found Advance Directives No Advanced Directives Records FoundNo Advanced Directives Records Found Additional Source Comments INFORMATION SOURCE (unrecogn ized section and content) DATE CREATED AUTHOR 02/23/2022 [facility] DATE CREATED AUTHOR 'S BE ATJUAN 02/13/2024 [facility] REASON FOR VISIT (unrecogniz ed section and content) SINUS, DRAINAGE CHEST CONGES TION FOR RECORDS PERTAINING TO PATIENTS WHO ARE OR HAVE BEEN ENROLLED IN A CHEMICAL DEPENDENCY/SUBSTANCEABUSE PROGRAM, SOME INFORMATION MAY BE OMITTED. This clinical summary was aggregated from multiple sources. Caution should be exercised in using it in the provision of clinical care. This summary normalizes information from multiple sources, and as a consequence, information in this document may materially change the coding, format and clinical context of patient data. In addition, data may be omitted in some cases. CLINICAL DECISIONS SHOULD BE BASED ON THE PRIMARY CLINICAL RECORDS. [facility] [place] provides no warranty or guarantee of the accuracy or completeness of information in this document.
== END 2024-02-19 09:17 | disposition home or self-care (01) ==
LOC: MAMMO 09:16
PROVIDERS: PCP Family Medicine; Visit Provider Family Medicine
DX: Z00.00 Encounter for general adult medical examination without abnormal findings (principal); Z80.1 Family history of malignant neoplasm of trachea, bronchus and lung
CPT/HCPCS: 77063; 77067

== ENCOUNTER 2024-04-09 09:07 | Outpatient (OUT) | payer OTHER, SELFPAY ==
--- OUTSIDE RECORDS SUMMARY | 2024-04-09 09:18 | XMS_ITS | CCD ---
Author Organization [facility] Care Team Providers Care Scrap Crusher Name Role Phone LIZANDRO, DR PABON Admitting Unavailable HOY, DR PABON [...] Admitting Unavailable PAY, DR STRONG Consulting Unavailable MEGY, DR PABON Primary Care Unavailable Sosa, Stevenson Consulting Unavailable JODI, DR SANDY Kincaid Consulting Unavailable JODI, DR SANDY Kincaid Admitting Unavailable LIZANDRO, DR PABON Primary Care Unavailable JODI, DR SANDY Kincaid Attending Unavailable SHAHID, DR CONLEY Attending Unavailable HAY, DR CONLEY Consulting Unavailable SHAHID, DR CONLEY Admitting Unavailable LIZANDRO, DR PABON Primary Care Unavailable Malinda Marion Unavailable Cm Ardon Primary Care Physician [phone] Jessee AHUMADA Attending Unavailable Cm Ardon Referring Unavailable Allergies Allergy Classification Reported Allergen(s) Allergy Type Date of Onset Reaction(s) Facility (1 source) No Known Medication Allergies; Translations: [No Known Medication Allergies] Propensity to adverse reactions (disorder) [facility] Repository Medications Current Medications Medication Drug Class(es) Dates Sig (Normalized) Sig (Original) fluticasone propionate 0.05 mg/actuat metered dose nasal spray (1 source) Corticosteroid Start: 04-27-2023 take 2 spray(s) nasal route once daily Fluticasone Propionate 50 MCG/ACT 2 sprays Nasally Once a day for 14 day(s) 14 Oct, 2023 Active predniSONE 20 mg oral tablet (1 source) Start: 04-27-2023 take 1 tablet by mouth every twelve hours predniSONE 20 MG 1 tablet Orally bid for 5 day(s) Apr, Active Completed/Discontinued Medications Medication Drug Class(es) Dates Sig (Normalized) Sig (Original) levothyroxine sodium 0.075 mg oral tablet (2 sources) l-Thyroxine Start: 02-21-2024 levothyroxine 75 mcg (0.075 mg) Tab 75 mcg = 1 tab(s), Oral, Daily, 0 Refill(s), Refills(s) 0 Start Date: 02/21/24 Status: Ordered Levothyroxine So dium Active liothyronine sodium 0.005 mg oral tablet (2 sources) l-Triiodothyronine Start: 02-21-2024 liothyronin e 5 mcg Tab 10 mcg = 2 tab(s), Oral, Daily, Oral, 0 Refill(s), Refills(s) 0 Start Date: 02/21/24 Status: Ordered Liothyronine Sod ium 5 MCG Oral for 30 Days Active Problems Active Problems Problem Classification Problem Date Documented Date Episodic/Chronic Disorders of teeth and jaw (6 sources) Other specified disorders of teeth and supporting structures; Translations: [Periapical abscess without sinus] Onset: 01-07-2022 Episodic Essential hypertension (2 sources) Essential (primary) hypertension; Translations: [Essential hypertension] Onset: 11-16-2021 02-17-2024 Chronic Headache; including migraine (4 sources) Headache; including migraine; Translations: [HEADACHE UNSPECIFIED] Onset: 11-14-2021 Immunizations and screening for infectious disease (1 source) Contact with and (suspected) exposure to other viral communicable diseases Episodic Other aftercare (1 source) Other terminal superintendent (current) drug therapy; Translations: [OTH GROUP HOME CURRENT DRUG THERAPY] Onset: 01-10-2022 Episodic Other nervous system disorders (1 source) Polyneuropathy 02-21-2024 Chronic Other nutritional; endocrine; and metabolic disorders (1 source) Overweight 02-21-2024 Episodic Other nutritional; endocrine; and metabolic disorders (1 source) Overweight in adulthood with body mass index of 25 or more but less than 30 03-10-2024 Episodic Other screening for suspected conditions (not mental disorders or infectious disease) (5 sources) Encounter for screening mammogram for malignant neoplasm of breast; Translations: [Screening for malignant neoplasm of colon done] Onset: 02-21-2022 Episodic Other upper respiratory infections (1 source) Chronic sinusitis, unspecified; Translations: [CHRONIC SINUSITIS UNSPECIFIED] Onset: 01-08-2022 Chronic Other upper respiratory infections (1 source) Acute upper respiratory infection, unspecified Episodic Residual codes; unclassified (1 source) Sleep apnea 02-17-2024 Chronic Residual codes; unclassified (1 source) Family history of malignant neoplasm of trachea, bronchus and lung; Translations: [FAM HX MALIG NEOPLSM TRACH BRON LNG] Onset: 02-23-2022 Episodic Screening and history of mental health and substance abuse codes (1 source) Personal history of nicotine dependence; Translations: [PERSONAL HISTORY OF NICOTINE DEPEND] Onset: 01-08-2022 Episodic Thyroid disorders (1 source) Hypothyroidism 02-21-2024 Chronic Unclassified (1 source) Patient encounter status 03-10-2024 Past or Other Problems Problem Classification Problem Date Documented Da te Episodic/Chronic Fluid and electrolyte disorders (1 source) Dehydration; Translations: [DEHYDRATION] Onset: 11-16-2021 Episodic Syncope (1 source) Syncope and collapse; Translations: [SYNCOPE AND COLLAPSE] Onset: 11-16-2021 Episodic Results Test Name Value Interpretation Reference Range Facility Ambulatory Visit Summaryon 0 03-10-2024 Ambulatory Visit Summary Ambulatory Visit Summary NIKIA TORRES :1970 Visit Date:03/10/2024 Ambulatory Visit Instructions Your Diagnosis Screening for malignant neoplasm of colon Your Care Team Attending Physician - BRANDYN BURCIAGA, Jessee Kincaid Primary Care Physician - Cm Ardon MD Referring Physician - Cm Ardon MD This Is Your Medications List Contact prescribing physician if questions or concerns levothyroxine (levothyroxine 75 mcg (0.075 mg) Tab) liothyronine (liothyronine 5 mcg Tab) Procedures Performed Vaginal hysterectomy. Discharge Vitals Heart Rate (Peripheral) 72 Respiratory Rate 16 Blood Pressure 126/76 Height 177.7 cm Height 70 in Weight 93 kg Weight 204.6 lb BMI 29.45 Medications What How Much When Instructions Unchanged levothyroxine (levothyroxine 75 mcg (0.075 mg) Tab) 1 Tablets By Mouth Every day 0 Refill(s) Contact prescribing physician if questions or concerns Unchanged liothyronine (liothyronine 5 mcg Tab) 2 Tablets By Mouth Every day Oral, 0 Refill(s) Contact prescribing physician if questions or concerns Allergies No Known Allergies No Known Medication Allergies Problems Ongoing - Any problem that you are currently receiving treatment for. BMI 29.0-29.9,adult Essential hypertension Hypothyroidism Overweight Polyneuropathy Screening for malignant neoplasm of colon Sleep apnea Patient Survey You may receive a survey via text or e-mail asking about your office visit. Please share your experience with us by completing your survey. We appreciate your feedback and thank you for choosing us for your care. Normal Lopez [facility] COVID + FLU Quick Testingon 04-27-2023 SARS-CoV-2 (COVID-19) RNA ILDEFONSO+probe Ql (Unsp spec) Negative [employer] Other COVID + FLU Quick Testing Negative [employer] Other MG MAMM SCREEN 3D SADI CADon 02-21-2022 MG MAMM SCREEN 3D SADI CAD Patient: NIKIA TORRES Exam Date: 02/21/2022 : 1970 Gender:F Ordering : DR CM ARDON . Admission #: [id number] Family : Order #: [id number] CLICK HERE TO VIEW EXAM RADIOLOGY REPORT [...] lung cancer at age 55. LOCATION: [facility] BREAST COMPOSITION: Heterogeneously dense,which may obscure small [...] MD on 02/21/2022 at 12:26 Normal [facility] OCC BLD IMMUNO SCREENon 01-12 OCCULT BLOOD Negative Normal NEGATIVE [facility] Comment on above: Performed By: #### O BSCRN #### [facility] [address] [place] [address] Dr. Lucille Lama INSULINon 01-19-2022 Insulin 25.6 uIU/mL Critically high 2.6-24.9 [facility] Comment on above: Performed By: #### I NSULIN #### [facility] [address] [place] [address] Dr. Lucille Lama CBC AUTO DIFFon 01-18-2022 BASO # 0.0 103/ul Normal 0.0-0.1 [facility] Comment on above: Performed By: #### C BC #### [facility] [address] [place] [address] Dr. Lucille Lama Basophils/100 WBC (Bld) 0.5 % Normal 0.2-2.0 [facility] Comment on above: Performed By: #### C BC #### [facility] [address] [place] [address] Dr. Lucille Lama EO # 0.1 103/ul Normal 0.0-0.7 [facility] Comment on above: Performed By: #### C BC #### [facility] [address] [place] [address] Dr. Lucille Lama Eosinophils/100 WBC (Bld) 1.5 % Normal 0.9-7.0 [facility] Comment on above: Performed By: #### C BC #### [facility] [address] [place] [address] Dr. Lucille Lama Erythrocyte distribution width (RBC) [Ratio] 12.5 % Normal 11.0-15.0 [facility] Comment on above: Performed By: #### C BC #### [facility] [address] [place] [address] Dr. Lucille Lama Hematocrit (Bld) [Volume fraction] 42.7 % Normal 36.0-48.0 [facility] Comment on above: Performed By: #### C BC #### [facility] [address] [place] [address] Dr. Lucille Lama Hemoglobin (Bld) [Mass/Vol] 13.2 g/dL Normal 12.0-16.0 [facility] Comment on above: Performed By: #### C BC #### [facility] [address] [place] [address] Dr. Lucille Lama IG # 0.05 10e3/ul Critically high 0.00-0.03 [facility] Comment on above: Performed By: #### C BC #### [facility] [address] [place] [address] Dr. Lucille Lama IG % 0.6 % Critically high 0.0-0.5 [facility] Comment on above: Performed By: #### C BC #### [facility] [address] [place] [address] Dr. Lucille Lama LYMPH # 2.3 103/ul Normal 1.2-3.8 [facility] Comment on above: Performed By: #### C BC #### [facility] [address] [place] [address] Dr. Lucille Lama Lymphocytes/100 WBC (Bld) 28.6 % Normal 20.5-60.0 [facility] Comment on above: Performed By: #### C BC #### [facility] [address] [place] [address] Dr. Lucille Lama MANUAL DIFF REQ NO Normal [facility] Comment on above: Performed By: #### C BC #### [facility] [address] [place] [address] Dr. Lucille Lama MCH (RBC) [Entitic mass] 26.2 pg Critically low 26.7-34.0 [facility] Comment on above: Performed By: #### C BC #### [facility] [address] [place] [address] Dr. Lucille Lama MCHC (RBC) [Mass/Vol] 30.9 g/dL Normal 29.9-35.2 [facility] Comment on above: Performed By: #### C BC #### [facility] [address] [address] [address] Lucille Lama MCV (RBC) [Entitic vol] 84.9 fL Normal 81.0-99.0 [facility] Comment on above: Performed By: #### C BC #### [facility] [address] [address] [address] Lucille Lama MONO # 0.4 103/ul Normal 0.3-0.8 [facility] Comment on above: Performed By: #### C BC #### [facility] [address] [place] [address] Dr. Lucille Lama Monocytes/100 WBC (Bld) 5.2 % Normal 1.7-12.0 [facility] Comment on above: Performed By: #### C BC #### [facility] [address] [place] [address] Dr. Lucille Lama NEUT # 5.0 103/ul Normal 1.4-6.5 [facility] Comment on above: Performed By: #### C BC #### [facility] [address] [place] [address] Dr. Lucille Lama Neutrophils/100 WBC (Bld) 63.6 % Normal 43.0-75.0 [facility] Comment on above: Performed By: #### C BC #### [facility] [address] [place] [address] Dr. Lucille Lama Platelet mean volume (Bld) [Entitic vol] 8.5 fL Critically low 9.5-13.5 [facility] Comment on above: Performed By: #### C BC #### [facility] [address] [place] [address] Dr. Lucille Lama PLT 436 103/ul Normal 150-450 [facility] Comment on above: Performed By: #### C BC #### [facility] [address] [place] [address] Dr. Lucille Lama RBC 5.03 106/ul Normal 4.20-5.40 [facility] Comment on above: Performed By: #### C BC #### [facility] [address] [address] [address] Lucille Lama WBC 7.9 103/ul Normal 4.0-11.0 [facility] Comment on above: Performed By: #### C BC #### [facility] [address] [address] [address] Lucille Lama FREE THYROXINE INDEX T7on FTI 2.34 Normal 1.30-4.50 [facility] Comment on above: Performed By: #### C MP, TSH, LIPID, T7 ####[facility] [address] [address]DrJessica Lama T3U 30.0 % Normal 30.0-39.0 [facility] Comment on above: Performed By: #### C MP, TSH, LIPID, T7 ####[facility] [address] [address]DrJessica Lama T4 [Mass/Vol] 7.80 ug/dL Normal 4.80-13.90 [facility] Comment on above: Performed By: #### C MP, TSH, LIPID, T7 ####[facility] [address] [address]DrJessica Lama GLYCOHEMOGLOBIN A1Con 2021 ADA RECOMMENDATION SEE BELOW Normal [facility] Comment on above: Result Comment: ADA RECOMMENDED LIMIT 4.0 - 6.0 ADA THERAPEUTIC TARGET < 7.0 ACTION SUGGESTED > 7.0 Performed By: #### A 1C ####[facility] [address] [address]DrJessica Lama Glucose [Mass/Vol] 120 mg/dL Normal [facility] Comment on above: Performed By: #### A 1C ####[facility] [address] [address]DrJessica Lama HbA1c (Bld) [Mass fraction] 5.8 % Normal 4.5-6.2 [facility] Comment on above: Performed By: #### A 1C ####[facility] [address] [id number]. Lucille Lama IRONon 01-18-2022 Iron [Mass/Vol] 48.0 ug/dL Critically low 50.0-170.0 [facility] Comment on above: Performed By: #### I BRIANA #### [facility] [address] [place], [place] [address] Dr. Lucille Lama LIPID PROFILEon 01-18-2022 CHOL-HDL RATIO NORM SEE BELOW Normal [facility] Comment on above: Result Comment: 3.3 - 4.4 LOW RISK 4.4 - 7.1 AVERAGE RISK 7.1 - 11.0 MODERATE RISK >11.0 HIGH RISK Performed By: #### C MP, TSH, LIPID, T7 ####[facility] [address] [id number]. Lucille Lama Cholesterol [Mass/Vol] 217 mg/dL Critically high <=200 [facility] Comment on above: Performed By: #### C MP, TSH, LIPID, T7 ####[facility] [address] [address]Dr. Lucille Lama Cholesterol in HDL [Mass/Vol] 38 mg/dL Critically low 40-60 [facility] Comment on above: Performed By: #### C MP, TSH, LIPID, T7 ####[facility] [address] [id number]. Lucille Lama Cholesterol in LDL [Mass/Vol] 124.8 mg/dL Normal [facility] Comment on above: Performed By: #### C MP, TSH, LIPID, T7 ####[facility] [address] [id number]. Lucille Lama Cholesterol.total/Ch olesterol in HDL [Mass ratio] 5.7 {ratio} Normal [facility] Comment on above: Performed By: #### C MP, TSH, LIPID, T7 ####[facility] [address] [id number]. Lucille Lama HDL NORMAL > or = 60 mg/dl - LOW CARDIOVASCULAR RISK <40 mg/dl - HIGH CARDIOVASCULAR RISK Normal [facility] Comment on above: Performed By: #### C MP, TSH, LIPID, T7 ####[facility] [address] [place] [address]Dr. Lucille Lama LDL CALC NORMAL SEE BELOW Normal [facility] Comment on above: Result Comment: <100 mg/dl OPTIMAL 100 - 129 mg/dl NEAR OR ABOVE OPTIMAL 130 - 159 mg/dl BORDERLINE HIGH 160 - 189 mg/dl HIGH >190 mg/dl VERY HIGH Performed By: #### C MP, TSH, LIPID, T7 ####[facility] [address] [address]Dr. Lucille Lama Triglyceride [Mass/Vol] 271 mg/dL Critically high <=150 [facility] Comment on above: Performed By: #### C MP, TSH, LIPID, T7 ####[facility] [address] [address]Dr. Lucille Lama VLDL CALC 54.2 mg/dL Normal [facility] Comment on above: Performed By: #### C MP, TSH, LIPID, T7 ####[facility] [address] [address]Dr. Lucille Lama PROF 14(COMP METB)on 022 Albumin [Mass/Vol] 3.4 g/dL Normal 3.4-5.0 [facility] Comment on above: Performed By: #### C MP, TSH, LIPID, T7 ####[facility] [address] [address]Dr. Lucille Lama Albumin/Globulin [Mass ratio] 0.8 {ratio} Normal [facility] Comment on above: Performed By: #### C MP, TSH, LIPID, T7 ####[facility] [address] [address]Dr. Lucille Lama ALP [Catalytic activity/Vol] 115 U/L Normal 46-116 [facility] Comment on above: Performed By: #### C MP, TSH, LIPID, T7 ####[facility] [address] [place] [address]Dr. Lucille Lama ALT [Catalytic activity/Vol] 35 U/L Normal 14-59 [facility] Comment on above: Performed By: #### C MP, TSH, LIPID, T7 ####[facility] [address] [place] [address]Dr. Lucille Lama Anion gap [Moles/Vol] 11.4 mmol/L Normal [facility] Comment on above: Performed By: #### C MP, TSH, LIPID, T7 ####[facility] [address] [place] [address]Dr. Lucille Lama AST [Catalytic activity/Vol] 16 U/L Normal 15-37 [facility] Comment on above: Performed By: #### C MP, TSH, LIPID, T7 ####[facility] [address] [place] [address]Dr. Lucille Lama Bilirubin [Mass/Vol] 0.5 mg/dL Normal 0.2-1.0 [facility] Comment on above: Performed By: #### C MP, TSH, LIPID, T7 ####[facility] [address] [place], [place] [address]Dr. Lucille Lama Calcium [Mass/Vol] 9.0 mg/dL Normal 8.5-10.1 [facility] Comment on above: Performed By: #### C MP, TSH, LIPID, T7 ####[facility] [address] [place], [place] [address]Dr. Lucille Lama Chloride [Moles/Vol] 103 mmol/L Normal 98-107 [facility] Comment on above: Performed By: #### C MP, TSH, LIPID, T7 ####[facility] [address] [place] [address]Dr. Lucille Lama CO2 [Moles/Vol] 26.4 mmol/L Normal 21.0-32.0 [facility] Comment on above: Performed By: #### C MP, TSH, LIPID, T7 ####[facility] [address] [place], [place] [address]Dr. Lucille Lama Creatinine [Mass/Vol] 0.76 mg/dL Normal 0.55-1.02 [facility] Comment on above: Performed By: #### C MP, TSH, LIPID, T7 ####[facility] [address] [place], [place] [address]Dr. Lucille Lama EGFR-AF SRI LANKAN >60 Normal >=60 [facility] Comment on above: Performed By: #### C MP, TSH, LIPID, T7 ####[facility] [address] [address]Dr. Lucille Lama EGFR-NON AF SRI LANKAN >60 Normal >=60 [facility] Comment on above: Performed By: #### C MP, TSH, LIPID, T7 ####[facility] [address] [address]Dr. Lucille Lama Globulin (S) [Mass/Vol] 4.2 g/dL Normal [facility] Comment on above: Performed By: #### C MP, TSH, LIPID, T7 ####[facility] [address] [address]Dr. Lucille Lama Glucose [Mass/Vol] 89 mg/dL Normal 74-106 [facility] Comment on above: Performed By: #### C MP, TSH, LIPID, T7 ####[facility] [address] [address]Dr. Lucille Lama Potassium [Moles/Vol] 3.8 mmol/L Normal 3.5-5.1 [facility] Comment on above: Performed By: #### C MP, TSH, LIPID, T7 ####[facility] [address] [address]Dr. Lucille Lama Protein [Mass/Vol] 7.6 g/dL Normal 6.4-8.2 [facility] Comment on above: Performed By: #### C MP, TSH, LIPID, T7 ####[facility] [address] [address]Dr. Lucille Lama Sodium [Moles/Vol] 137 mmol/L Normal 136-145 [facility] Comment on above: Performed By: #### C MP, TSH, LIPID, T7 ####[facility] [address] [address]Dr. Lucille Lama Urea nitrogen [Mass/Vol] 8.0 mg/dL Normal 7.0-18.0 [facility] Comment on above: Performed By: #### C MP, TSH, LIPID, T7 ####[facility] [address] [address]Dr. Lucille Lama Urea nitrogen/Creatinine [Mass ratio] 10.5 mg/mg Normal [facility] Comment on above: Performed By: #### C MP, TSH, LIPID, T7 ####[facility] [address] [address]Dr. Lucille Lama TSHon 01-18-2022 TSH 1.277 uIU/mL Normal 0.358-3.740 [facility] Comment on above: Performed By: #### C MP, TSH, LIPID, T7 ####[facility] [address] [place], [place] [address]Dr. Lucille Lama CBC AUTO DIFFon 01-07-2022 BASO # 0.1 103/ul Normal 0.0-0.1 [facility] Comment on above: Performed By: #### C BC ####[facility] [address] [place], [place] [address]Dr. Lucille Lama Basophils/100 WBC (Bld) 0.4 % Normal 0.2-2.0 [facility] Comment on above: Performed By: #### C BC ####[facility] [address] [place], [place] [address]Dr. Lucille Lama EO # 0.0 103/ul Normal 0.0-0.7 [facility] Comment on above: Performed By: #### C BC ####[facility] [address] [place], [place] [address]Dr. Lucille Lama Eosinophils/100 WBC (Bld) 0.2 % Critically low 0.9-7.0 [facility] Comment on above: Performed By: #### C BC ####[facility] [address] [place], [place] [address]Dr. Lucille Lama Erythrocyte distribution width (RBC) [Ratio] 12.4 % Normal 11.0-15.0 [facility] Comment on above: Performed By: #### C BC ####[facility] [address] [place], [place] [address]Dr. Lucille Lama Hematocrit (Bld) [Volume fraction] 44.5 % Normal 36.0-48.0 [facility] Comment on above: Performed By: #### C BC ####[facility] [address] [address]Dr. Lucille Lama Hemoglobin (Bld) [Mass/Vol] 14.2 g/dL Normal 12.0-16.0 [facility] Comment on above: Performed By: #### C BC ####[facility] [address] [address]Dr. Lucille Lama IG # 0.05 10e3/ul Critically high 0.00-0.03 [facility] Comment on above: Performed By: #### C BC ####[facility] [address] [place], [place] [address]Dr. Lucille Lama IG % 0.4 % Normal 0.0-0.5 [facility] Comment on above: Performed By: #### C BC ####[facility] [address] [place], [place] [address]Dr. Lucille Lama LYMPH # 1.7 103/ul Normal 1.2-3.8 [facility] Comment on above: Performed By: #### C BC ####[facility] [address] [place], [place] [address]Dr. Lucille Lama Lymphocytes/100 WBC (Bld) 13.5 % Critically low 20.5-60.0 [facility] Comment on above: Performed By: #### C BC ####[facility] [address] [place], [place] [address]Dr. Lucille Lama MANUAL DIFF REQ NO Normal [facility] Comment on above: Performed By: #### C BC ####[facility] [address] [place], [place] [address]Dr. Lucille Lama MCH (RBC) [Entitic mass] 26.5 pg Critically low 26.7-34.0 [facility] Comment on above: Performed By: #### C BC ####[facility] [address] [place], [place] [address]Dr. Lucille Lama MCHC (RBC) [Mass/Vol] 31.9 g/dL Normal 29.9-35.2 [facility] Comment on above: Performed By: #### C BC ####[facility] [address] [id number] Lucille Kelby MCV (RBC) [Entitic vol] 83.0 fL Normal 81.0-99.0 [facility] Comment on above: Performed By: #### C BC ####[facility] [address] [place], [place] [address]DrJessica Lama MONO # 0.5 103/ul Normal 0.3-0.8 [facility] Comment on above: Performed By: #### C BC ####[facility] [address] [place], [place] [address]DrJessica Lama Monocytes/100 WBC (Bld) 4.1 % Normal 1.7-12.0 [facility] Comment on above: Performed By: #### C BC ####[facility] [address] [place], [place] [address]DrJessica Lama NEUT # 10.0 103/ul Critically high 1.4-6.5 [facility] Comment on above: Performed By: #### C BC ####[facility] [address] [place], [place] [address]DrJessica Lama Neutrophils/100 WBC (Bld) 81.4 % Critically high 43.0-75.0 [facility] Comment on above: Performed By: #### C BC ####[facility] [address] [place], [place] [address]DrJessica Lama Platelet mean volume (Bld) [Entitic vol] 8.8 fL Critically low 9.5-13.5 [facility] Comment on above: Performed By: #### C BC ####[facility] [address] [place], [place] [address]DrJessica Lama PLT 375 103/ul Normal 150-450 [facility] Comment on above: Performed By: #### C BC ####[facility] [address] [place], [place] [address]DrJessica Lama RBC 5.36 106/ul Normal 4.20-5.40 [facility] Comment on above: Performed By: #### C BC ####[facility] [address] [id number]. Lucille Lama WBC 12.3 103/ul Critically high 4.0-11.0 [facility] Comment on above: Performed By: #### C BC ####[facility] [address] [id number] Adepatricia Lama LACTATE/LACTIC ACIDon 2021 Lactate [Moles/Vol] 1.3 mmol/L Normal 0.4-1.9 [facility] Comment on above: Performed By: #### L ACT #### [facility] [address] [address] [address] Lucille Lama CARDIAC SANDY ADMITon 022 CK [Catalytic activity/Vol] 36 U/L Normal 26-192 [facility] Comment on above: Performed By: #### T BRADY MASON, CMP ####[facility] [address] [id number]. Adepatricia Lama CK.MB [Mass/Vol] 0.63 ng/mL Normal <=3.60 [facility] Comment on above: Performed By: #### T BRADY MASON, CMP ####[facility] [address] [id number]. Lucille Kelby HSTROP 5.5 pg/mL Normal 4.0-51.3 [facility] Comment on above: Result Comment: CUT- OFF POINTS HAVE BEEN ESTABLISHED BASED ON THE FOURTH UNIVERSAL DEFINITIONS OF MYOCARDIAL INFARCTION. THE UPPER REFERENCE LIMIT (URL) OF TROPONIN, DEFINED THE 99TH PERCENTILE OF cTnI DISTRIBUTION IN A REFERENCE POPULATION, HAS BEEN CONFIRMED THE DECISION THRESHOLD FOR [place] DIAGNOSIS. Performed By: #### T ZENAIDA MASONDM, CMP ####[facility] [address] [id number]. Lucille Lama FREDA 30 ng/mL Normal 9-82 [facility] Comment on above: Performed By: #### T BRADY MASON, CMP ####[facility] [address] [place], [place] [address]NaDr. Lucille Lama CBC AUTO DIFFon 11-15-2021 BASO # 0.0 103/ul Normal 0.0-0.1 [facility] Comment on above: Performed By: #### C BC #### [facility] [address] [address] [address] Lucille Lama Basophils/100 WBC (Bld) 0.4 % Normal 0.2-2.0 [facility] Comment on above: Performed By: #### C BC #### [facility] [address] [address] [address] Lucille Lama EO # 0.1 103/ul Normal 0.0-0.7 [facility] Comment on above: Performed By: #### C BC #### [facility] [address] [place] [address] Dr. Lucille Lama Eosinophils/100 WBC (Bld) 1.0 % Normal 0.9-7.0 [facility] Comment on above: Performed By: #### C BC #### [facility] [address] [address] [address] Lucille Lama Erythrocyte distribution width (RBC) [Ratio] 12.6 % Normal 11.0-15.0 [facility] Comment on above: Performed By: #### C BC #### [facility] [address] [place] [address] Dr. Lucille Lama Hematocrit (Bld) [Volume fraction] 43.1 % Normal 36.0-48.0 [facility] Comment on above: Performed By: #### C BC #### [facility] [address] [address] [address] Lucille Lama Hemoglobin (Bld) [Mass/Vol] 13.4 g/dL Normal 12.0-16.0 [facility] Comment on above: Performed By: #### C BC #### [facility] [address] [address] [address] Lucille Lama IG # 0.03 10e3/ul Normal 0.00-0.03 [facility] Comment on above: Performed By: #### C BC #### [facility] [address] [place] [address] Dr. Lucille Lama IG % 0.4 % Normal 0.0-0.5 [facility] Comment on above: Performed By: #### C BC #### [facility] [address] [place] [address] Dr. Lucille Lama LYMPH # 1.3 103/ul Normal 1.2-3.8 [facility] Comment on above: Performed By: #### C BC #### [facility] [address] [place] [address] Dr. Lucille Lama Lymphocytes/100 WBC (Bld) 15.4 % Critically low 20.5-60.0 [facility] Comment on above: Performed By: #### C BC #### [facility] [address] [place] [address] Dr. Lucille Lama MANUAL DIFF REQ NO Normal [facility] Comment on above: Performed By: #### C BC #### [facility] [address] [place] [address] Dr. Lucille Lama MCH (RBC) [Entitic mass] 26.7 pg Normal 26.7-34.0 [facility] Comment on above: Performed By: #### C BC #### [facility] [address] [place] [address] Dr. Lucille Lama MCHC (RBC) [Mass/Vol] 31.1 g/dL Normal 29.9-35.2 [facility] Comment on above: Performed By: #### C BC #### [facility] [address] [place] [address] Dr. Lucille Lama MCV (RBC) [Entitic vol] 86.0 fL Normal 81.0-99.0 [facility] Comment on above: Performed By: #### C BC #### [facility] [address] [place] [address] Dr. Lucille Lama MONO # 0.4 103/ul Normal 0.3-0.8 [facility] Comment on above: Performed By: #### C BC #### [facility] [address] [place] [address] Dr. Lucille Lama Monocytes/100 WBC (Bld) 4.8 % Normal 1.7-12.0 [facility] Comment on above: Performed By: #### C BC #### [facility] [address] [place] [address] Dr. Lucille Lama NEUT # 6.5 103/ul Normal 1.4-6.5 [facility] Comment on above: Performed By: #### C BC #### [facility] [address] [place] [address] Dr. Lucille Lama Neutrophils/100 WBC (Bld) 78.0 % Critically high 43.0-75.0 [facility] Comment on above: Performed By: #### C BC #### [facility] [address] [place] [address] Dr. Lucille Lama Platelet mean volume (Bld) [Entitic vol] 8.5 fL Critically low 9.5-13.5 [facility] Comment on above: Performed By: #### C BC #### [facility] [address] [place] [address] Dr. Lucille Lama PLT 375 103/ul Normal 150-450 [facility] Comment on above: Performed By: #### C BC #### [facility] [address] [place] [address] Dr. Lucille Lama RBC 5.01 106/ul Normal 4.20-5.40 [facility] Comment on above: Performed By: #### C BC #### [facility] [address] [place] [address] Dr. Lucille Lama WBC 8.4 103/ul Normal 4.0-11.0 [facility] Comment on above: Performed By: #### C BC #### [facility] [address] [place] [address] HEAD WO CONon [...] STEVENSON COTTRELL Date: 2021-11-14 23:28 Normal [facility] PROF 14(COMP METB)on 022 Albumin [Mass/Vol] 3.5 g/dL Normal 3.4-5.0 [facility] Comment on above: Performed By: #### T BRADY MASON CMP #### [facility] [address] [address] [address] Lucille Lama Albumin/Globulin [Mass ratio] 0.9 {ratio} Normal [facility] Comment on above: Performed By: #### T BRADY MASON, CMP #### [facility] [address] [address] [address] Lucille Lama ALP [Catalytic activity/Vol] 133 U/L Critically high 46-116 [facility] Comment on above: Performed By: #### T BRADY MASON, CMP #### [facility] [address] [address] [address] Lucille Lama ALT [Catalytic activity/Vol] 28 U/L Normal 14-59 [facility] Comment on above: Performed By: #### T BRADY MASON, CMP #### [facility] [address] [address] [address] Lucille Lama Anion gap [Moles/Vol] 9.0 mmol/L Normal [facility] Comment on above: Performed By: #### T SH, CMADM, CMP #### [facility] [address] [address] [address] Lucille Lama AST [Catalytic activity/Vol] 15 U/L Normal 15-37 [facility] Comment on above: Performed By: #### T MARLON, CMADM, CMP #### [facility] [address] [address] [address] Lucille Lama Bilirubin [Mass/Vol] 0.6 mg/dL Normal 0.2-1.0 [facility] Comment on above: Performed By: #### T MARLON, CMADM, CMP #### [facility] [address] [address] [address] Lucille Lama Calcium [Mass/Vol] 8.5 mg/dL Normal 8.5-10.1 [facility] Comment on above: Performed By: #### T MARLON, CMADM, CMP #### [facility] [address] [place] [address] Dr. Lucille Lama Chloride [Moles/Vol] 101 mmol/L Normal 98-107 [facility] Comment on above: Performed By: #### T MARLON, CMADM, CMP #### [facility] [address] [address] [address] Lucille Laam CO2 [Moles/Vol] 27.6 mmol/L Normal 21.0-32.0 [facility] Comment on above: Performed By: #### T MARLON CMADM, CMP #### [facility] [address] [address] [address] Lucille Lama Creatinine [Mass/Vol] 0.81 mg/dL Normal 0.55-1.02 [facility] Comment on above: Performed By: #### T MARLON, CMADM, CMP #### [facility] [address] [address] [address] Lucille Lama EGFR-AF SRI LANKAN >60 Normal >=60 [facility] Comment on above: Performed By: #### T MARLON, CMADM, CMP #### [facility] [address] [address] [address] Lucille Lama EGFR-NON AF SRI LANKAN >60 Normal >=60 [facility] Comment on above: Performed By: #### T MARLON, CMADM, CMP #### [facility] [address] [address] [address] Lucille Lama Globulin (S) [Mass/Vol] 4.1 g/dL Normal [facility] Comment on above: Performed By: #### T MARLON, CMADM, CMP #### [facility] [address] [address] [address] Lucille Lama Glucose [Mass/Vol] 114 mg/dL Critically high 74-106 T [facility] Comment on above: Performed By: #### T MARLON CMADM, CMP #### [facility] [address] [address] [address] Lucille Lama Potassium [Moles/Vol] 3.6 mmol/L Normal 3.5-5.1 [facility] Comment on above: Performed By: #### T MARLON CMADM, CMP #### [facility] [address] [address] [address] Lucille Lama Protein [Mass/Vol] 7.6 g/dL Normal 6.1-8.2 [facility] Comment on above: Performed By: #### T ZENAIDA MASONDM, CMP #### [facility] [address] [place] [address] Dr. Lucille Lama Sodium [Moles/Vol] 134 mmol/L Critically low 136-145 [facility] Comment on above: Performed By: #### T MARLON CMADM, CMP #### [facility] [address] [address] [address] Lucille Lama Urea nitrogen [Mass/Vol] 9.0 mg/dL Normal 7.0-18.0 [facility] Comment on above: Performed By: #### T MARLON CMADM, CMP #### [facility] [address] [place] [address] Dr. Lucille Lama Urea nitrogen/Creatinine [Mass ratio] 11.1 mg/mg Normal [facility] Comment on above: Performed By: #### T MARLON CMADM, CMP #### [facility] [address] [address] [address] Lucille Lama TSHon 11-15-2021 TSH 0.963 uIU/mL Normal 0.470-4.680 [facility] Comment on above: Performed By: #### T BRADY MASON, CMP #### [facility] [address] [place], [place] [address] Dr. Lucille Lama TSH RANGE SEE BELOW Normal [facility] Comment on above: Result Comment: <0.3 4 UIU/ml HYPERTHYROID 0.34-5.60 UIU/ml EUTHYROID >5.60 UIU/ml HYPOTHYROID Performed By: #### T BRADY MASON, CMP #### [facility] [address] [address] [address] Lucille Lama XR CHEST 2 Von [...] by: STEVENSON COTTRELL Date: 2021-11-14 23:29 Normal [facility] Vital Signs Date Time Vital Sign Value Performing Clinician Facility 03-10-2024 15:31-0400 Blood Pressure Location Jessee AHUMADA [facility] 03-10-2024 15:31-0400 Diastolic blood pressure 76 mm[Hg] Jessee AHUMADA [facility] 03-10-2024 15:31-0400 Heart rate 72 /min Jessee AHUMADA [facility] 03-10-2024 15:31-0400 Respiratory rate 16 /min Jessee AHUMADA [facility] 03-10-2024 15:31-0400 Systolic blood pressure 126 mm[Hg] Jessee AHUMADA [facility] 04-27-2023 13:45-0400 Body height 177.8 cm Malinda Hoppermond Other [facility] Other 04-27-2023 13:45-0400 Body mass index (BMI) [Ratio] 35.01 kg/m2 Malinda Hoppermond Other [facility] Other 04-27-2023 13:45-0400 Body temperature 98.1 [degF] Malinda Hoppermond Other [facility] Other 04-27-2023 13:45-0400 Body weight 110.68 kg Malinda Marion Other [facility] Other 04-27-2023 13:45-0400 Diastolic blood pressure 79 mm[Hg] Malinda Hoppermond Other [facility] Other 04-27-2023 13:45-0400 Respiratory rate 18 /min Malinda Marion Other [facility] Other 04-27-2023 13:45-0400 SaO2% (BldA) [Mass fraction] 96 % Malinda Hoppermond Other [facility] Other 04-27-2023 13:45-0400 Systolic blood pressure 142 mm[Hg] Malinda Sanam Other [facility] Other Encounters Encounter Date Encounter Type Care Provider Facility Start: 03-10-2024 End: 03-10-2024 ambulatory Jessee AHUMADA Facility:[facility] Start: 03-10-2024 End: 03-10-2024 Patient encounter procedure Jessee AHUMADA [facility] Start: 02-06-2024 ambulatory Jessee AHUMADA Facility:[facility] Start: 04-27-2023 End: 04-27-2023 ambulatory Malinda Marion Other [facility] Other Start: 04-27-2023 Office outpatient vi sit 15 minutes Malinda Marion [facility] Start: 02-21-2022 End: 02-22-[address] CM ARDON Facility:[facility] Start: 01-25-2022 Encounter for genera l adult medical examination without abnormal findings DR CM ARDON [facility] Start: 01-24-2022 End: 01-24-[address] CM ARDON Facility:[facility] Start: 01-24-2022 End: 01-24-2022 Encounter for general adult medical examination without abnormal findings DR CM ARDON Facility:[facility] Start: 01-18-2022 End: 01-19-[address] CM ARDON Facility:[facility] Start: 01-07-2022 End: 01-07-[address] JARVIS KEY Facility:[facility] Start: 01-06-2022 End: 01-07-[address] SANDY ZAPATA Facility:[facility] Start: 11-14-2021 End: 11-15-[address] TAE KIMBLE Facility:[facility] Procedures Date Procedure Procedure Detail Performing Clinician Vaginal hysterectomy Jessee AHUMADA Immunizations Immunization Date Immunization Notes Care Provider Fa cili 04-15-2021 SARS-CoV-2 (COVID-19 ) mRNA BNT-162b2 vax Jessee PON[facility] 03-25-2021 SARS-CoV-2 (COVID-19 ) mRNA BNT-162b2 vax Jessee [facility] Payers Date Payer Category Payer Unknown [id number] 2.16.84 [id number] 1970 Unknown [id number] 2.16.84 [id number] 1970 Unknown [id number] 2.16.84 [id number] 1970 Unknown [id number] 2.16.84 [id number] 1970 Unknown [id number] 2.16.84 [id number] 1970 Unknown [id number] 2.16.84 [id number] 1970 Unknown [id number] 2.16.8 [id number] 1959 Unknown [id number] Social History Date Type Detail Facility Unknown if ever smoked [facility] Other Sex Assigned [facility] Start: 03-10-2024 Tobacco smoking status Ex-smoker (fi nding) [facility] Tobacco smoking status Never [facility] Functional Status Date Assessment Result Facility 03-10-2024 Functional Status N/A [facility] Clinical Note 03-10-2024 Note Date & Type Note Facility 03-10-[address] [facility] Offi ce/Clinic Note Chief Complaint consultation for colonoscopy HPI Staff 53 year old female presents on consultation from Dr. Ardon for screening colonoscopy. Denies abdominal or rectal pain. No rectal bleeding or change in bowel habits. Denies nausea or vomiting. No unexplained weight loss. Never had colonoscopy in the past. No known family history of colon cancer. History of Present Illness 53 yo female with h/o htn, hypothyroidism, WILLOW, referred for colorectal screening; denies change in bms or blood in stools, no abd complaints; abdominal operations significant for hysterectomy, no previous colonoscopy; no asa or NSAID use; no tobacco use; no fmhx of GI malignancy or IBD. Review of Systems PHQ Score Initial Depression Screen Score: 0 SCORE ROS - Provider Constitutional: no fever, no sweats, no weight loss. Eyes: no glasses, no blurred vision, no visual loss. ENMT: no dentures, no hoarseness, no swallowing difficulties, no hearing loss, no ear infection(s), no nose bleeds. Cardiovascular: normal blood pressure, no chest pain, regular heartbeat, no heart murmur. Respiratory: no shortness of breath, no cough, no asthma, no wheezing. Gastrointestinal: no nausea, no vomiting, no diarrhea, no constipation, no blood in stool, no change in bowel habits, no abdominal pain, no hepatitis. Genitourinary: no kidney stones, no urine infection, no dysuria. Musculoskeletal: no pain, no weakness. Skin: no changing moles, no rash, no skin lumps. Neurologic: no seizures, no epilepsy, no headache. Psychiatric: no emotional or psychiatric problem. Heme/Lymph: no bleeding problems, no anemia, no blood clots, no transfusions. Allergy/Immunologic: no swollen lymph nodes/glands, no IV drug abuse. Other: Additional ROS info: Except as noted in the above Review of Systems and in the History of Present Illness, all other systems have been reviewed and are negative or noncontributory. Physical Exam Vitals & Measurements HR: 72(Peripheral) RR: 16 BP: 126/76 HT: 70 in HT: 177.7 cm WT: 93 kg WT: 204.6 lb BMI: 29.45 HEENT: normal conjunctiva, sclera clear, no scleral icterus, EOM intact, PERRLA, oral mucosa moist without lesions. Neck: trachea midline, no mass, symmetric, no thyromegaly or nodules, no adenopathy Respiratory: lungs CTA, respirations non labored. Cardiovascular: regular rate and rhythm, no murmur, no pedal edema or varicosities. Gastrointestinal: soft, non distended, no tenderness, no masses, no palpable hernias, diastasis recti no, no hepatosplenomegaly; normal bs Lymphatic: no cervical adenopathy, no supraclavicular adenopathy. Musculoskeletal: normal gait, digits and nails without infection, nodes, cyanosis, clubbing. Skin: no rashes, no lesions, no ulcers, no subcutaneous nodules, induration. Psychiatric/Neuro: oriented to time, place, person, judgement normal, affect appropriate for age, insight intact, no focal deficits. Tests: , review of old records completed , Discussed surgical options, risks, and possible complications with patient. Assessment/Plan 1. Screening for malignant neoplasm of colon (Z12.11: Encounter for screening for malignant neoplasm of colon) plan colonoscopy under anesthesia, informed consent obtained. Follow-up No qualifying data available Problem List/Past Medical History Ongoing BMI 29.0-29.9,adult Essential hypertension Hypothyroidism Overweight Polyneuropathy Screening for malignant neoplasm of colon Sleep apnea Historical No qualifying data Procedure/Surgical History Vaginal hysterectomy. Medications levothyroxine 75 mcg (0.075 mg) Tab, 75 mcg= 1 tab(s), Oral, Daily liothyronine 5 mcg Tab, 10 mcg= 2 tab(s), Oral, Daily Allergies No Known Allergies No Known Medication Allergies Social History Alcohol - Denies Alcohol Use, 03/10/2024 Substance Abuse - Denies Substance Abuse, 03/10/2024 Tobacco Former smoker, quit more than 30 days ago Tobacco Use:. Never Smokeless Tobacco Use:. Cigarettes, 0.5 per day. Started age 20.0 Years. Stopped age 49 Years., 03/10/2024 Family History Diabetes mellitus type 2: Mother. Heart disease: Mother. Immunizations Vaccine Date Status SARS-CoV-2 (COVID-19) mRNA BNT-162b2 vax 04/15/2021 Recorded SARS-CoV-2 (COVID-19) mRNA BNT-162b2 vax 03/25/[address] [facility] Comment on above: Result Comment: Elec tronically Signed By: BRANDYN BURCIAGA, Jessee [email or web address].nader\Date and Time Signed: 03/10/24 16:06 EDT Evaluation note 04-27-2023 Note Date & Type [...] no improvement in 2 to 3 days [facility] Other Evaluation + Plan note Note Date & Type Note Facility Evaluation + Plan note No data available for this section [facility] History general Narrative - Reported Note Date & Type Note Facility History general Narrative - Reported Type Medical History neuropathy Medical History thyroid disease Surgical History partial hysterectomy Surgical History C section Hospitalization History see above [facility] Other Hospital Discharge instructions Note Date & Type Note Facility Hospital Discharge instructions No data available for this section [facility] Progress note Note Date & Type Note Facility Progress note No data available for this section [facility] Summary Purpose Family History No Family History Records Found No data available for this section No Family History Records Found Advance Directives No Advanced Directives Records FoundNo Advanced Directives Records Found Additional Source Comments INFORMATION SOURCE (unrecogn ized section and content) DATE CREATED AUTHOR 02/23/2022 [facility] DATE CREATED AUTHOR AUTHOR'S ORGANIZ ATION 03/12/2024 [facility] REASON FOR VISIT (unrecogniz ed section and content) SINUS, DRAINAGE CHEST CONGES TION Patient Care team informatio n (unrecognized section and content) Personnel Name: Cm Ardon MD Address: Address: [address] [place] [address] FOR RECORDS PERTAINING TO PATIENTS WHO ARE [...] BE BASED ON THE PRIMARY CLINICAL RECORDS. [facility] [email or web address] [facility]. provides no warranty or guarantee of the accuracy or completeness of information in this document.
== END 2024-04-09 09:08 | disposition home or self-care (01) ==
LOC: PST 09:07
PROVIDERS: PCP Family Medicine; Visit Provider Surgery
DX: Z01.818 Encounter for other preprocedural examination (principal); Z12.11 Encounter for screening for malignant neoplasm of colon

== ENCOUNTER 2024-04-15 06:50 | Day surgery (SDC) | payer OTHER, SELFPAY ==
--- NOTE | 2024-04-15 | OP_ITS ---
OPERATION DATE: 04/15/2024 PREOPERATIVE DIAGNOSIS: Colorectal screening. POSTOPERATIVE DIAGNOSIS: Normal colonoscopy to cecum. PROCEDURE: Colonoscopy to cecum. SURGEON: Jessee Ruiz M.D. ANESTHESIA: Monitored anesthesia care. ESTIMATED BLOOD LOSS: Zero. INDICATIONS AND CONSENT: Patient is a 53-year-old female presents for colorectal screening. Indications, risks, benefits, alternatives of proceeding with colonoscopy were explained extensively to the patient, including the risks of bleeding, colon perforation or anesthetic complications. All of her questions were answered. Informed consent was obtained. PROCEDURE: Patient brought to the operating room, placed in the left lateral decubitus position. Monitored anesthesia care was provided. Rectal exam was performed which showed no masses or blood. The scope was inserted into the anal canal. Under direct visualization was advanced. With the aid of abdominal compression, it was advanced to the cecum where cecal markings were clearly identified. Upon withdrawal of the scope, mucosal surfaces were carefully examined. There were no mass lesions or polyps. No inflammatory changes or ulcerations. No significant diverticulosis. The scope was retroflexed in the anal canal. There was no significant hemorrhoidal disease. Scope was then withdrawn. Patient tolerated procedure well, was sent to recovery room in good condition. Follow up screening colonoscopy should be in 10 years. CC: Tarun Ardon M.D. MANDY
--- OUTSIDE RECORDS SUMMARY | 2024-04-15 06:53 | XMS_ITS | CCD ---
Author Organization [facility]ini[facility] Care Team Providers Care Waste Management Engineer Name Role Phone LIZANDRO, DR PABON Admitting [...] Unavailable MEGY, DR PABON Primary Care Unavailable Soas, Stevenson Consulting Unavailable JODI, DR SANDY Kincaid Consulting Unavailable JODI, DR SANDY Kincaid Admitting Unavailable LIZANDRO, DR PABON Primary Care Unavailable JODI, DR SANDY Kincaid Attending Unavailable SHAHID, DR CONLEY Attending Unavailable HAY, DR CONLEY Consulting Unavailable SHAHID, DR CONLEY Admitting Unavailable LIZANDRO, DR PABON Primary Care Unavailable Malinda Marion Unavailable Cm Ardon Primary Care Physician Jessee AHUMADA Attending Unavailable Cm Ardon Referring Unavailable Allergies Allergy Classification Reported Allergen(s) Allergy Type Date of Onset Reaction(s) Facility (1 source) No Known Medication Allergies; Translations: [No Known Medication Allergies] Propensity to adverse reactions (disorder) [facility] Repository Medications Current Medications Medication Drug Class(es) [...] diseases Episodic Other aftercare (1 source) Other creative services designer (current) drug therapy; Translations: [OTH GRADER MARKER CURRENT DRUG THERAPY] Onset: 01-10-2022 Episodic Other [...] choosing us for your care. Normal [facility] COVID + FLU Quick Testingon 04-27-2023 SARS-CoV-2 (COVID-19) RNA ILDEFONSO+probe Ql (Unsp spec) Negative [employer] Other COVID + FLU Quick Testing Negative [employer] Other MG MAMM SCREEN 3D SADI CADon 02-21-2022 MG MAMM SCREEN 3D SADI CAD Patient: NIKIA TORRES Exam Date: 02/21/2022 : 1970 Gender:F Ordering : DR CM ARDON . Admission #: [id number] Family : Order #: [id number] CLICK HERE TO VIEW EXAM RADIOLOGY REPORT [...] lung cancer at age 55. LOCATION: [facility] BREAST COMPOSITION: Heterogeneously dense,which may obscure [...] MD on 02/21/2022 at 12:26 Normal [facility] OCC BLD IMMUNO SCREENon 01-12 OCCULT BLOOD Negative Normal NEGATIVE [facility] Comment on above: Performed By: #### O BSCRN #### [facility] [address] [place] [address] Dr. Lucille Lama INSULINon 01-19-2022 Insulin 25.6 uIU/mL Critically high 2.6-24.9 [facility] Comment on above: Performed By: #### I NSULIN #### [facility] [address] [place] [address] Dr. Lucille Lama CBC AUTO DIFFon 01-18-2022 BASO # 0.0 103/ul Normal 0.0-0.1 [facility] Comment on above: Performed By: #### C BC #### [facility] [address] [place] [address] Dr. Lucille Lama Basophils/100 WBC (Bld) 0.5 % Normal 0.2-2.0 [facility] Comment on above: Performed By: #### C BC #### [facility] [address] [place] [address] Dr. Lucille Lama EO # 0.1 103/ul Normal 0.0-0.7 [facility] Comment on above: Performed By: #### C BC #### [facility] [address] [place] [address] Dr. Lucille Lama Eosinophils/100 WBC (Bld) 1.5 % Normal 0.9-7.0 [facility] Comment on above: Performed By: #### C BC #### [facility] [address] [place] [address] Dr. Lucille Lama Erythrocyte distribution width (RBC) [Ratio] 12.5 % Normal 11.0-15.0 [facility] Comment on above: Performed By: #### C BC #### [facility] [address] [place] [address] Dr. Lucille Lama Hematocrit (Bld) [Volume fraction] 42.7 % Normal 36.0-48.0 [facility] Comment on above: Performed By: #### C BC #### [facility] [address] [place] [address] Dr. Lucille Lama Hemoglobin (Bld) [Mass/Vol] 13.2 g/dL Normal 12.0-16.0 [facility] Comment on above: Performed By: #### C BC #### [facility] [address] [place] [address] Dr. Lucille Lama IG # 0.05 10e3/ul Critically high 0.00-0.03 [facility] Comment on above: Performed By: #### C BC #### [facility] [address] [place] [address] Dr. Lucille Lama IG % 0.6 % Critically high 0.0-0.[address] [facility] Comment on above: Performed By: #### C BC #### [facility] [address] [place] [address] Dr. Lucille Lama LYMPH # 2.3 103/ul Normal 1.2-3.8 [facility] Comment on above: Performed By: #### C BC #### [facility] [address] [place] [address] Dr. Lucille Lama Lymphocytes/100 WBC (Bld) 28.6 % Normal 20.5-60.0 [facility] Comment on above: Performed By: #### C BC #### [facility] [address] [place] [address] Dr. Lucille Lama MANUAL DIFF REQ NO Normal [facility] Comment on above: Performed By: #### C BC #### [facility] [address] [place] [address] Dr. Lucille Lama MCH (RBC) [Entitic mass] 26.2 pg Critically low 26.7-34.0 [facility] Comment on above: Performed By: #### C BC #### [facility] [address] [place] [address] Dr. Lucille Lama MCHC (RBC) [Mass/Vol] 30.9 g/dL Normal 29.9-35.2 [facility] Comment on above: Performed By: #### C BC #### [facility] [address] [address] [address] Lucille Lama MCV (RBC) [Entitic vol] 84.9 fL Normal 81.0-99.0 [facility] Comment on above: Performed By: #### C BC #### [facility] [address] [address] [address] Lucille Lama MONO # 0.4 103/ul Normal 0.3-0.8 [facility] Comment on above: Performed By: #### C BC #### [facility] [address] [place] [address] Dr. Lucille Lama Monocytes/100 WBC (Bld) 5.2 % Normal 1.7-12.0 [facility] Comment on above: Performed By: #### C BC #### [facility] [address] [place] [address] Dr. Lucille Lama NEUT # 5.0 103/ul Normal 1.4-6.5 [facility] Comment on above: Performed By: #### C BC #### [facility] [address] [place] [address] Dr. Lucille Lama Neutrophils/100 WBC (Bld) 63.6 % Normal 43.0-75.0 [facility] Comment on above: Performed By: #### C BC #### [facility] [address] [place] [address] Dr. Lucille Lama Platelet mean volume (Bld) [Entitic vol] 8.5 fL Critically low 9.5-13.5 [facility] Comment on above: Performed By: #### C BC #### [facility] [address] [place] [address] Dr. Lucille Lama PLT 436 103/ul Normal 150-450 [facility] Comment on above: Performed By: #### C BC #### [facility] [address] [place] [address] Dr. Lucille Lama RBC 5.03 106/ul Normal 4.20-5.40 [facility] Comment on above: Performed By: #### C BC #### [facility] [address] [address] [address] Lucille Lama WBC 7.9 103/ul Normal 4.0-11.0 [facility] Comment on above: Performed By: #### C BC #### [facility] [address] [address] [address] Lucille Lama FREE THYROXINE INDEX T7on FTI 2.34 Normal 1.30-4.50 [facility] Comment on above: Performed By: #### C MP, TSH, LIPID, T7 ####[facility] [address] [address]DrJessica Lama T3U 30.0 % Normal 30.0-39.0 [facility] Comment on above: Performed By: #### C MP, TSH, LIPID, T7 ####[facility] [address] [address]DrJessica Lama T4 [Mass/Vol] 7.80 ug/dL Normal 4.80-13.90 [facility] Comment on above: Performed By: #### C MP, TSH, LIPID, T7 ####[facility] [address] [address]DrJessica Lama GLYCOHEMOGLOBIN A1Con 2021 ADA RECOMMENDATION SEE BELOW Normal [facility] Comment on above: Result Comment: ADA RECOMMENDED LIMIT 4.0 - 6.0 ADA THERAPEUTIC TARGET < 7.0 ACTION SUGGESTED > 7.0 Performed By: #### A 1C ####[facility] [address] [address]DrJessica Lama Glucose [Mass/Vol] 120 mg/dL Normal [facility] Comment on above: Performed By: #### A 1C ####[facility] [address] [address]DrJessica Lama HbA1c (Bld) [Mass fraction] 5.8 % Normal 4.5-6.2 [facility] Comment on above: Performed By: #### A 1C ####[facility] [address] [id number]. Lucille Lama IRONon 01-18-2022 Iron [Mass/Vol] 48.0 ug/dL Critically low 50.0-170.0 [facility] Comment on above: Performed By: #### I BRIANA #### [facility] [address] [place], [place] [address] Dr. Lucille Lama LIPID PROFILEon 01-18-2022 CHOL-HDL RATIO NORM SEE BELOW Normal [facility] Comment on above: Result Comment: 3.3 - 4.4 LOW RISK 4.4 - 7.1 AVERAGE RISK 7.1 - 11.0 MODERATE RISK >11.0 HIGH RISK Performed By: #### C MP, TSH, LIPID, T7 ####[facility] [address] [id number]. Lucille Lama Cholesterol [Mass/Vol] 217 mg/dL Critically high <=200 [facility] Comment on above: Performed By: #### C MP, TSH, LIPID, T7 ####[facility] [address] [address]Dr. Lucille Lama Cholesterol in HDL [Mass/Vol] 38 mg/dL Critically low 40-60 [facility] Comment on above: Performed By: #### C MP, TSH, LIPID, T7 ####[facility] [address] [id number]. Lucille Lama Cholesterol in LDL [Mass/Vol] 124.8 mg/dL Normal [facility] Comment on above: Performed By: #### C MP, TSH, LIPID, T7 ####[facility] [address] [id number]. Lucille Lama Cholesterol.total/Ch olesterol in HDL [Mass ratio] 5.7 {ratio} Normal [facility] Comment on above: Performed By: #### C MP, TSH, LIPID, T7 ####[facility] [address] [id number]. Lucille Lama HDL NORMAL > or = 60 mg/dl - LOW CARDIOVASCULAR RISK <40 mg/dl - HIGH CARDIOVASCULAR RISK Normal [facility] Comment on above: Performed By: #### C MP, TSH, LIPID, T7 ####[facility] [address] [place] [address]Dr. Lucille Lama LDL CALC NORMAL SEE BELOW Normal [facility] Comment on above: Result Comment: <100 mg/dl OPTIMAL 100 - 129 mg/dl NEAR OR ABOVE OPTIMAL 130 - 159 mg/dl BORDERLINE HIGH 160 - 189 mg/dl HIGH >190 mg/dl VERY HIGH Performed By: #### C MP, TSH, LIPID, T7 ####[facility] [address] [address]Dr. Lucille Lama Triglyceride [Mass/Vol] 271 mg/dL Critically high <=150 [facility] Comment on above: Performed By: #### C MP, TSH, LIPID, T7 ####[facility] [address] [address]Dr. Lucille Lama VLDL CALC 54.2 mg/dL Normal [facility] Comment on above: Performed By: #### C MP, TSH, LIPID, T7 ####[facility] [address] [address]Dr. Lucille Lama PROF 14(COMP METB)on 022 Albumin [Mass/Vol] 3.4 g/dL Normal 3.4-5.0 [facility] Comment on above: Performed By: #### C MP, TSH, LIPID, T7 ####[facility] [address] [address]Dr. Lucille Lama Albumin/Globulin [Mass ratio] 0.8 {ratio} Normal [facility] Comment on above: Performed By: #### C MP, TSH, LIPID, T7 ####[facility] [address] [address]Dr. Lucille Lama ALP [Catalytic activity/Vol] 115 U/L Normal 46-116 [facility] Comment on above: Performed By: #### C MP, TSH, LIPID, T7 ####[facility] [address] [address]Dr. Lucille Lama ALT [Catalytic activity/Vol] 35 U/L Normal 14-59 [facility] Comment on above: Performed By: #### C MP, TSH, LIPID, T7 ####[facility] [address] [place] [address]Dr. Lucille Lama Anion gap [Moles/Vol] 11.4 mmol/L Normal [facility] Comment on above: Performed By: #### C MP, TSH, LIPID, T7 ####[facility] [address] [place] [address]Dr. Lucille Lama AST [Catalytic activity/Vol] 16 U/L Normal 15-37 [facility] Comment on above: Performed By: #### C MP, TSH, LIPID, T7 ####[facility] [address] [address]Dr. Lucille Lama Bilirubin [Mass/Vol] 0.5 mg/dL Normal 0.2-1.0 [facility] Comment on above: Performed By: #### C MP, TSH, LIPID, T7 ####[facility] [address] [place], [place] [address]Dr. Lucille Lama Calcium [Mass/Vol] 9.0 mg/dL Normal 8.5-10.1 [facility] Comment on above: Performed By: #### C MP, TSH, LIPID, T7 ####[facility] [address] [place], [place] [address]Dr. Lucille Lama Chloride [Moles/Vol] 103 mmol/L Normal 98-107 [facility] Comment on above: Performed By: #### C MP, TSH, LIPID, T7 ####[facility] [address] [address]Dr. Lucille Lama CO2 [Moles/Vol] 26.4 mmol/L Normal 21.0-32.0 [facility] Comment on above: Performed By: #### C MP, TSH, LIPID, T7 ####[facility] [address] [place], [place] [address]Dr. Lucille Lama Creatinine [Mass/Vol] 0.76 mg/dL Normal 0.55-1.02 [facility] Comment on above: Performed By: #### C MP, TSH, LIPID, T7 ####[facility] [address] [place], [place] [address]Dr. Lucille Lama EGFR-AF MALAWIAN >60 Normal >=60 [facility] Comment on above: Performed By: #### C MP, TSH, LIPID, T7 ####[facility] [address] [address]Dr. Lucille Lama EGFR-NON AF MALAWIAN >60 Normal >=60 [facility] Comment on above: Performed By: #### C MP, TSH, LIPID, T7 ####[facility] [address] [address]Dr. Lucille Lama Globulin (S) [Mass/Vol] 4.2 g/dL Normal [facility] Comment on above: Performed By: #### C MP, TSH, LIPID, T7 ####[facility] [address] [address]Dr. Lucille Lama Glucose [Mass/Vol] 89 mg/dL Normal 74-106 [facility] Comment on above: Performed By: #### C MP, TSH, LIPID, T7 ####[facility] [address] [address]Dr. Lucille Lama Potassium [Moles/Vol] 3.8 mmol/L Normal 3.5-5.1 [facility] Comment on above: Performed By: #### C MP, TSH, LIPID, T7 ####[facility] [address] [address]Dr. Lucille Lama Protein [Mass/Vol] 7.6 g/dL Normal 6.4-8.2 [facility] Comment on above: Performed By: #### C MP, TSH, LIPID, T7 ####[facility] [address] [address]Dr. Lucille Lama Sodium [Moles/Vol] 137 mmol/L Normal 136-145 [facility] Comment on above: Performed By: #### C MP, TSH, LIPID, T7 ####[facility] [address] [address]Dr. Lucille Lama Urea nitrogen [Mass/Vol] 8.0 mg/dL Normal 7.0-18.0 [facility] Comment on above: Performed By: #### C MP, TSH, LIPID, T7 ####[facility] [address] [address]Dr. Lucille Lama Urea nitrogen/Creatinine [Mass ratio] 10.5 mg/mg Normal [facility] Comment on above: Performed By: #### C MP, TSH, LIPID, T7 ####[facility] [address] [address]Dr. Lucille Lama TSHon 01-18-2022 TSH 1.277 uIU/mL Normal 0.358-3.740 [facility] Comment on above: Performed By: #### C MP, TSH, LIPID, T7 ####[facility] [address] [place], [place] [address]Dr. Lucille Lama CBC AUTO DIFFon 01-07-2022 BASO # 0.1 103/ul Normal 0.0-0.1 [facility] Comment on above: Performed By: #### C BC ####[facility] [address] [place], [place] [address]Dr. Lucille Lama Basophils/100 WBC (Bld) 0.4 % Normal 0.2-2.0 [facility] Comment on above: Performed By: #### C BC ####[facility] [address] [place], [place] [address]Dr. Lucille Lama EO # 0.0 103/ul Normal 0.0-0.7 [facility] Comment on above: Performed By: #### C BC ####[facility] [address] [place], [place] [address]Dr. Lucille Lama Eosinophils/100 WBC (Bld) 0.2 % Critically low 0.9-7.0 [facility] Comment on above: Performed By: #### C BC ####[facility] [address] [place], [place] [address]Dr. Lucille Lama Erythrocyte distribution width (RBC) [Ratio] 12.4 % Normal 11.0-15.0 [facility] Comment on above: Performed By: #### C BC ####[facility] [address] [place], [place] [address]Dr. Lucille Lama Hematocrit (Bld) [Volume fraction] 44.5 % Normal 36.0-48.0 [facility] Comment on above: Performed By: #### C BC ####[facility] [address] [address]Dr. Lucille Lama Hemoglobin (Bld) [Mass/Vol] 14.2 g/dL Normal 12.0-16.0 [facility] Comment on above: Performed By: #### C BC ####[facility] [address] [address]Dr. Lucille Lama IG # 0.05 10e3/ul Critically high 0.00-0.03 [facility] Comment on above: Performed By: #### C BC ####[facility] Lt[address] [place], [place] [address]Dr. Lucille Lama IG % 0.4 % Normal 0.0-0.5 [facility] Comment on above: Performed By: #### C BC ####[facility] [address] [place], [place] [address]Dr. Lucille Lama LYMPH # 1.7 103/ul Normal 1.2-3.8 [facility] Comment on above: Performed By: #### C BC ####[facility] [address] [place], [place] [address]Dr. Lucille Lama Lymphocytes/100 WBC (Bld) 13.5 % Critically low 20.5-60.0 [facility] Comment on above: Performed By: #### C BC ####[facility] [address] [place], [place] [address]Dr. Lucille Lama MANUAL DIFF REQ NO Normal [facility] Comment on above: Performed By: #### C BC ####[facility] [address] [place], [place] [address]Dr. Lucille Lama MCH (RBC) [Entitic mass] 26.5 pg Critically low 26.7-34.0 [facility] Comment on above: Performed By: #### C BC ####[facility] [address] [place], [place] [address]Dr. Lucille Lama MCHC (RBC) [Mass/Vol] 31.9 g/dL Normal 29.9-35.2 [facility] Comment on above: Performed By: #### C BC ####[facility] [address] [id number] Lucille Kelby MCV (RBC) [Entitic vol] 83.0 fL Normal 81.0-99.0 [facility] Comment on above: Performed By: #### C BC ####[facility] [address] [place], [place] [address]DrJessica Lama MONO # 0.5 103/ul Normal 0.3-0.8 [facility] Comment on above: Performed By: #### C BC ####[facility] [address] [place], [place] [address]DrJessica Lama Monocytes/100 WBC (Bld) 4.1 % Normal 1.7-12.0 [facility] Comment on above: Performed By: #### C BC ####[facility] [address] [place], [place] [address]DrJessica Lama NEUT # 10.0 103/ul Critically high 1.4-6.5 [facility] Comment on above: Performed By: #### C BC ####[facility] [address] [place], [place] [address]DrJessica Lama Neutrophils/100 WBC (Bld) 81.4 % Critically high 43.0-75.0 [facility] Comment on above: Performed By: #### C BC ####[facility] [address] [place], [place] [address]DrJessica Lama Platelet mean volume (Bld) [Entitic vol] 8.8 fL Critically low 9.5-13.5 [facility] Comment on above: Performed By: #### C BC ####[facility] [address] [place], [place] [address]DrJessica Lama PLT 375 103/ul Normal 150-450 [facility] Comment on above: Performed By: #### C BC ####[facility] [address] [place], [place] [address]DrJessica Lama RBC 5.36 106/ul Normal 4.20-5.40 [facility] Comment on above: Performed By: #### C BC ####[facility] [address] [id number]. Lucille Lama WBC 12.3 103/ul Critically high 4.0-11.0 [facility] Comment on above: Performed By: #### C BC ####[facility] [address] [place] [id number] Adepatricia Lama LACTATE/LACTIC ACIDon 2021 Lactate [Moles/Vol] 1.3 mmol/L Normal 0.4-1.9 [facility] Comment on above: Performed By: #### L ACT #### [facility] [address] [address] [address] Lucille Lama CARDIAC SANDY ADMITon 022 CK [Catalytic activity/Vol] 36 U/L Normal 26-192 [facility] Comment on above: Performed By: #### T BRADY MASON, CMP ####[facility] [address] [id number]. Adepatricia Lama CK.MB [Mass/Vol] 0.63 ng/mL Normal <=3.60 [facility] Comment on above: Performed By: #### T BRADY MASON, CMP ####[facility] [address] [id number]. Lucille Kelby HSTROP 5.5 pg/mL Normal 4.0-51.3 [facility] Comment on above: Result Comment: CUT- OFF POINTS HAVE BEEN ESTABLISHED BASED ON THE FOURTH UNIVERSAL DEFINITIONS OF MYOCARDIAL INFARCTION. THE UPPER REFERENCE LIMIT (URL) OF TROPONIN, DEFINED THE 99TH PERCENTILE OF cTnI DISTRIBUTION IN A REFERENCE POPULATION, HAS BEEN CONFIRMED THE DECISION THRESHOLD FOR OR DIAGNOSIS. Performed By: #### T ZENAIDA MASONDM, CMP ####[facility] [address] [id number]. Lucille Lama FREDA 30 ng/mL Normal 9-82 [facility] Comment on above: Performed By: #### T BRADY MASON, CMP ####[facility] [address] [place], [place] [address]TkDr. Lucille Lama CBC AUTO DIFFon 11-15-2021 BASO # 0.0 103/ul Normal 0.0-0.1 [facility] Comment on above: Performed By: #### C BC #### [facility] [address] [address] [address] Lucille Lama Basophils/100 WBC (Bld) 0.4 % Normal 0.2-2.0 [facility] Comment on above: Performed By: #### C BC #### [facility] [address] [address] [address] Lucille Lama EO # 0.1 103/ul Normal 0.0-0.7 [facility] Comment on above: Performed By: #### C BC #### [facility] [address] [place] [address] Dr. Lucille Lama Eosinophils/100 WBC (Bld) 1.0 % Normal 0.9-7.0 [facility] Comment on above: Performed By: #### C BC #### [facility] [address] [address] [address] Lucille Lama Erythrocyte distribution width (RBC) [Ratio] 12.6 % Normal 11.0-15.0 [facility] Comment on above: Performed By: #### C BC #### [facility] [address] [place] [address] Dr. Lucille Lama Hematocrit (Bld) [Volume fraction] 43.1 % Normal 36.0-48.0 [facility] Comment on above: Performed By: #### C BC #### [facility] [address] [address] [address] Lucille Lama Hemoglobin (Bld) [Mass/Vol] 13.4 g/dL Normal 12.0-16.0 [facility] Comment on above: Performed By: #### C BC #### [facility] [address] [address] [address] Lucille Lama IG # 0.03 10e3/ul Normal 0.00-0.03 [facility] Comment on above: Performed By: #### C BC #### [facility] [address] [place] [address] Dr. Lucille Lama IG % 0.4 % Normal 0.0-0.5 [facility] Comment on above: Performed By: #### C BC #### [facility] [address] [place] [address] Dr. Lucille Lama LYMPH # 1.3 103/ul Normal 1.2-3.8 [facility] Comment on above: Performed By: #### C BC #### [facility] [address] [place] [address] Dr. Lucille Lama Lymphocytes/100 WBC (Bld) 15.4 % Critically low 20.5-60.0 [facility] Comment on above: Performed By: #### C BC #### [facility] [address] [place] [address] Dr. Lucille Lama MANUAL DIFF REQ NO Normal [facility] Comment on above: Performed By: #### C BC #### [facility] [address] [place] [address] Dr. Lucille Lama MCH (RBC) [Entitic mass] 26.7 pg Normal 26.7-34.0 [facility] Comment on above: Performed By: #### C BC #### [facility] [address] [place] [address] Dr. Lucille Lama MCHC (RBC) [Mass/Vol] 31.1 g/dL Normal 29.9-35.2 [facility] Comment on above: Performed By: #### C BC #### [facility] [address] [place] [address] Dr. Lucille Lama MCV (RBC) [Entitic vol] 86.0 fL Normal 81.0-99.0 [facility] Comment on above: Performed By: #### C BC #### [facility] [address] [place] [address] Dr. Lucille Lama MONO # 0.4 103/ul Normal 0.3-0.8 [facility] Comment on above: Performed By: #### C BC #### [facility] [address] [place] [address] Dr. Lucille Lama Monocytes/100 WBC (Bld) 4.8 % Normal 1.7-12.0 [facility] Comment on above: Performed By: #### C BC #### [facility] [address] [place] [address] Dr. Lucille Lama NEUT # 6.5 103/ul Normal 1.4-6.5 [facility] Comment on above: Performed By: #### C BC #### [facility] [address] [place] [address] Dr. Lucille Lama Neutrophils/100 WBC (Bld) 78.0 % Critically high 43.0-75.0 [facility] Comment on above: Performed By: #### C BC #### [facility] [address] [place] [address] Dr. Lucille Lama Platelet mean volume (Bld) [Entitic vol] 8.5 fL Critically low 9.5-13.5 [facility] Comment on above: Performed By: #### C BC #### [facility] [address] [place] [address] Dr. Lucille Lama PLT 375 103/ul Normal 150-450 [facility] Comment on above: Performed By: #### C BC #### [facility] [address] [place] [address] Dr. Lucille Lama RBC 5.01 106/ul Normal 4.20-5.40 [facility] Comment on above: Performed By: #### C BC #### [facility] [address] [place] [address] Dr. Lucille Lama WBC 8.4 103/ul Normal 4.0-11.0 [facility] Comment on above: Performed By: #### C BC #### [facility] [address] [place] [address] HEAD WO CONon [...] STEVENSON COTTRELL Date: 2021-11-14 23:28 Normal [facility] PROF 14(COMP METB)on 022 Albumin [Mass/Vol] 3.5 g/dL Normal 3.4-5.0 [facility] Comment on above: Performed By: #### T BRADY MASON CMP #### [facility] [address] [address] [address] Lucille Lama Albumin/Globulin [Mass ratio] 0.9 {ratio} Normal [facility] Comment on above: Performed By: #### T BRADY MASON, CMP #### [facility] [address] [address] [address] Lucille Lama ALP [Catalytic activity/Vol] 133 U/L Critically high 46-116 [facility] Comment on above: Performed By: #### T BRADY MASON, CMP #### [facility] [address] [address] [address] Lucille Lama ALT [Catalytic activity/Vol] 28 U/L Normal 14-59 [facility] Comment on above: Performed By: #### T BRADY MASON, CMP #### [facility] [address] [address] [address] Lucille Lama Anion gap [Moles/Vol] 9.0 mmol/L Normal [facility] Comment on above: Performed By: #### T SH, CMADM, CMP #### [facility] [address] [address] [address] Lucille Lama AST [Catalytic activity/Vol] 15 U/L Normal 15-37 [facility] Comment on above: Performed By: #### T MARLON, CMADM, CMP #### [facility] [address] [address] [address] Lucille Lama Bilirubin [Mass/Vol] 0.6 mg/dL Normal 0.2-1.0 [facility] Comment on above: Performed By: #### T MARLON, CMADM, CMP #### [facility] [address] [address] [address] Lucille Lama Calcium [Mass/Vol] 8.5 mg/dL Normal 8.5-10.1 [facility] Comment on above: Performed By: #### T MARLON, CMADM, CMP #### [facility] [address] [place] [address] Dr. Lucille Lama Chloride [Moles/Vol] 101 mmol/L Normal 98-107 [facility] Comment on above: Performed By: #### T MARLON, CMADM, CMP #### [facility] [address] [address] [address] Lucille Lama CO2 [Moles/Vol] 27.6 mmol/L Normal 21.0-32.0 [facility] Comment on above: Performed By: #### T MARLON CMADM, CMP #### [facility] [address] [address] [address] Lucille Lama Creatinine [Mass/Vol] 0.81 mg/dL Normal 0.55-1.02 [facility] Comment on above: Performed By: #### T MARLON, CMADM, CMP #### [facility] [address] [address] [address] Lucille Lama EGFR-AF MALAWIAN >60 Normal >=60 [facility] Comment on above: Performed By: #### T MARLON, CMADM, CMP #### [facility] [address] [address] [address] Lucille Lama EGFR-NON AF MALAWIAN >60 Normal >=60 [facility] Comment on above: Performed By: #### T MARLON, CMADM, CMP #### [facility] [address] [address] [address] Lucille Lama Globulin (S) [Mass/Vol] 4.1 g/dL Normal [facility] Comment on above: Performed By: #### T MARLON, CMADM, CMP #### [facility] [address] [address] [address] Lucille Lama Glucose [Mass/Vol] 114 mg/dL Critically high 74-106 [facility] [place] Comment on above: Performed By: #### T MARLON CMADM, CMP #### [facility] [address] [address] [address] Lucille Lama Potassium [Moles/Vol] 3.6 mmol/L Normal 3.5-5.1 [facility] Comment on above: Performed By: #### T MARLON CMADM, CMP #### [facility] [address] [address] [address] Lucille Lama Protein [Mass/Vol] 7.6 g/dL Normal 6.1-8.2 [facility] Comment on above: Performed By: #### T ZENAIDA MASONDM, CMP #### [facility] [address] [place] [address] Dr. Lucille Lama Sodium [Moles/Vol] 134 mmol/L Critically low 136-145 [facility] Comment on above: Performed By: #### T MARLON CMADM, CMP #### [facility] [address] [address] [address] Lucille Lama Urea nitrogen [Mass/Vol] 9.0 mg/dL Normal 7.0-18.0 [facility] Comment on above: Performed By: #### T MARLON CMADM, CMP #### [facility] [address] [place] [address] Dr. Lucille Lama Urea nitrogen/Creatinine [Mass ratio] 11.1 mg/mg Normal [facility] Comment on above: Performed By: #### T MARLON CMADM, CMP #### [facility] [address] [address] [address] Lucille Lama TSHon 11-15-2021 TSH 0.963 uIU/mL Normal 0.470-4.680 [facility] Comment on above: Performed By: #### T BRADY MASON, CMP #### [facility] [address] [place], [place] [address] Dr. Lucille Lama TSH RANGE SEE BELOW Normal [facility] Comment on above: Result Comment: <0.3 4 UIU/ml HYPERTHYROID 0.34-5.60 UIU/ml EUTHYROID >5.60 UIU/ml HYPOTHYROID Performed By: #### T BRADY MASON, CMP #### [facility] [address] [address] [address] Lucille Lama XR CHEST 2 Von [...] by: STEVENSON COTTRELL Date: 2021-11-14 23:29 Normal [facility] Vital Signs Date Time Vital Sign Value Performing Clinician Facility 03-10-2024 15:31-0400 Blood Pressure Location Jessee AHUMADA [facility] 03-10-2024 15:31-0400 Diastolic blood pressure 76 mm[Hg] Jessee AHUMADA [facility] 03-10-2024 15:31-0400 Heart rate 72 /min Jessee [facility]UMADA [facility] 03-10-2024 15:31-0400 Respiratory rate 16 /min Jessee AHUMADA [facility] 03-10-2024 15:31-0400 Systolic blood pressure 126 mm[Hg] Jessee AHUMADA [facility] 04-27-2023 13:45-0400 Body height 177.8 cm Malinda Hoppermond Other [facility] [facility] Other 04-27-2023 13:45-0400 Body mass index (BMI) [Ratio] 35.01 kg/m2 Malinda Hoppermond Other [facility] Other 04-27-2023 13:45-0400 Body temperature 98.1 [degF] Malinda Hoppermond Other [facility] Other 04-27-2023 13:45-0400 Body weight 110.68 kg Malinda Marion Other [facility] Other 04-27-2023 13:45-0400 Diastolic blood pressure 79 mm[Hg] Malinda Hoppermond Other [facility] Other 04-27-2023 13:45-0400 Respiratory rate 18 /min Malinda Marion Other [facility] Other 04-27-2023 13:45-0400 SaO2% (BldA) [Mass fraction] 96 % Malinda Hoppermond Other [facility] Other 04-27-2023 13:45-0400 Systolic blood pressure 142 mm[Hg] Malinda Sanam Other [facility] Other Encounters Encounter Date Encounter Type Care Provider Facility Start: 03-10-2024 End: 03-10-2024 ambulatory Jessee AHUMADA Facility:[facility] Start: 03-10-2024 End: 03-10-2024 Patient encounter procedure Jessee AHUMADA [facility] Start: 02-06-2024 ambulatory Jessee AHUMADA Facility:[facility] Start: 04-27-2023 End: 04-27-2023 ambulatory Malinda Marion Other [facility] [employer] Other Start: 04-27-2023 Office outpatient vi sit 15 minutes Malinda Marion [facility] Start: 02-21-2022 End: 02-22-[address] CM ARDON Facility:[facility] Start: 01-25-2022 Encounter for genera l adult medical examination without abnormal findings DR CM ARDON [facility] Start: 01-24-2022 End: 01-24-[address] CM [...] (COVID-19 ) mRNA BNT-162b2 vax Jessee [facility]ON[facility] 03-25-2021 SARS-CoV-2 (COVID-19 ) mRNA BNT-162b2 vax Jessee [facility] Payers Date Payer Category Payer Unknown [id number] 2.16.84 [id number] 1970 Unknown [id number] 2.16.84 [id number] 1970 Unknown [id number] 2.16.84 [id number] 1970 Unknown [id number] 2.16.84 [id number] 1970 Unknown [id number] 2.16.84 [id number] 1970 Unknown [id number] 2.16.84 [id number] 1970 Unknown [id number] 2.16.8 [id number] 1959 Unknown 2048 Social History Date Type Detail Facility Unknown if ever smoked [employer] Other Sex Assigned At [facility] Start: 03-10-2024 Tobacco smoking status Ex-smoker (fi nding) [facility] Tobacco smoking status Never Jos[facility] Functional Status Date Assessment Result Facility 03-10-2024 Functional Status N/A [facility] Clinical Note 03-10-2024 Note Date & Type Note Facility 03-10-2024 Note General [facility] Offi ce/Clinic Note Chief Complaint consultation for [...] SARS-CoV-2 (COVID-19) mRNA BNT-162b2 vax 03/25/2021 Recorded [facility] Comment on above: Result Comment: Elec tronically [...] no improvement in 2 to 3 days [facility] Other Evaluation + Plan note Note Date & Type Note Facility Evaluation + Plan note No data available for this section [facility] [place] History general Narrative - Reported Note Date & Type Note Facility History general Narrative - Reported Type Medical History neuropathy Medical History thyroid disease Surgical History partial hysterectomy Surgical History C section Hospitalization History see above [facility] [facility] Other Hospital Discharge instructions Note Date & Type Note Facility Hospital Discharge instructions No data available for this section [facility] [place] Progress note Note Date & Type Note Facility Progress note No data available for this section [facility] [place] Summary Purpose Family History No Family History Records Found No data available for this section No Family History Records Found Advance Directives No Advanced Directives Records FoundNo Advanced Directives Records Found Additional Source Comments INFORMATION SOURCE (unrecogn ized section and content) DATE CREATED AUTHOR 02/23/2022 [facility] DATE CREATED AUTHOR AUTHOR'S ORGANIZ ATION 03/12/2024 [facility] REASON FOR VISIT (unrecogniz ed section and content) SINUS, DRAINAGE CHEST CONGES TION Patient Care team informatio n (unrecognized section and content) Personnel Name: Cm Ardon MD Address: Address: [address] [place] [address] FOR RECORDS PERTAINING TO PATIENTS WHO ARE [...] BE BASED ON THE PRIMARY CLINICAL RECORDS. [facility] [employer] [facility]. provides no warranty or guarantee of the accuracy or completeness of information in this document.
[2024-04-15 07:06] VITALS: BP 148/74; PULSE 69; TEMP 36.2; O2SAT 97; BMI 28.8
[2024-04-15] MEDS: LACTATED RINGER'S SOLUTION 1,000 ML 50 ML IV (07:27)
[2024-04-15 08:11] VITALS: BP 87/52; PULSE 68; TEMP 36.3; O2SAT 96
[2024-04-15 08:26] VITALS: BP 135/82; PULSE 65; O2SAT 99
[2024-04-15 08:41] VITALS: BP 138/75; PULSE 53; O2SAT 100
[2024-04-15 09:00] VITALS: BP 141/89; PULSE 66; O2SAT 99
== END 2024-04-15 09:04 | disposition home or self-care (01) ==
PROVIDERS: PCP Family Medicine; Visit Provider Surgery
PROC: (CPT 812; principal; 2024-04-15 07:55)
DX: Z12.11 Encounter for screening for malignant neoplasm of colon (principal); E03.9 Hypothyroidism, unspecified; G47.33 Obstructive sleep apnea (adult) (pediatric); Z90.710 Acquired absence of both cervix and uterus; Z87.891 Personal history of nicotine dependence
CPT/HCPCS: 45378; J2704

== ENCOUNTER 2025-02-24 14:14 | Outpatient (OUT) | payer OTHER, SELFPAY ==
--- OUTSIDE RECORDS SUMMARY | 2025-02-24 14:41 | XMS_ITS | CCD ---
Author Organization [facility] Care Team Providers Care Front Desk Attendant Name Role Phone LIZANDRO, DR PABON [...] Admitting Unavailable PAY, DR STRONG Consulting Unavailable LIZANDRO, DR PABON Primary Care Unavailable Sosa, Stevenson Consulting Unavailable JODI, DR SANDY Kincaid Consulting Unavailable JODI, DR SANDY Kincaid Admitting Unavailable LIZANDRO, DR PABON Primary Care Unavailable JODI, DR SANDY Kincaid Attending Unavailable SHAHID, DR CONLEY Attending Unavailable SHAHID, DR CONLEY Consulting Unavailable SHAHID, DR CONLEY Admitting Unavailable LIZANDRO, DR PABON Primary Care Unavailable Malinda Marion Unavailable Cm Ardon Primary Care Physician [phone] Jessee AHUMADA Attending Unavailable Cm Ardon Referring Unavailable Jessee AHUMADA Attending Unavailable Allergies Allergy Classification Reported Allergen(s) Allergy Type Date of Onset Reaction(s) Facility (1 source) No Known Medication Allergies; Translations: [No Known Medication Allergies] Propensity to adverse reactions (disorder) [facility] Repository Medications Current Medications Medication Drug Class(es) Dates Sig (Normalized) Sig (Original) fluticasone propionate 0.05 mg/actuat metered dose nasal spray (1 source) Corticosteroid Start: 04-27-2023 take 2 spray(s) nasal route once daily Fluticasone Propionate 50 MCG/ACT 2 sprays Nasally Once a day for 14 day(s) Apr, Active predniSONE 20 mg oral tablet (1 [...] Episodic Other aftercare (1 source) Other terminal operations manager (current) drug therapy; Translations: [OTH SKILLED NURSING CURRENT DRUG THERAPY] Onset: 01-10-2022 Episodic Other [...] Test Name Value Interpretation Reference Range Facility Reminderson 04-16-2024 Reminders Reminders - From: Kristy Faye LPN To: N - Clinical; Sent: 04/16/2024 11:28:51 EDT Show up: 03/16/2034 07:00:00 EDT Subject: colonoscopy recall Due Date/Time: 04/15/2034 07:00:00 EDT Reminder/Recall Patient due for screening colonoscopy 04/15/2034. Normal [facility] Ambulatory Visit Summaryon 0 03-10-2024 Ambulatory Visit Summary Ambulatory Visit Summary BRIANNIKIA :1970 Visit Date:03/10/2024 Ambulatory Visit Instructions Your [...] for choosing us for your care. Normal [facility] COVID + FLU Quick Testingon 04-27-2023 SARS-CoV-2 (COVID-19) RNA ILDEFONSO+probe Ql (Unsp spec) Negative [facility] Other COVID + FLU Quick Testing Negative [facility] Other MG MAMM SCREEN 3D SADI CADon 02-21-2022 MG MAMM SCREEN 3D SADI CAD Patient: NIKIA TORRES Exam Date: 02/21/2022 : 1970 Gender:F Ordering : DR CM ARDON . Admission #: [id number] Family : Order #: [id number] CLICK HERE TO VIEW EXAM RADIOLOGY REPORT [...] lung cancer at age 55. LOCATION: [facility] BREAST COMPOSITION: Heterogeneously dense,which may obscure [...] MD on 02/21/2022 at 12:26 Normal [facility] OCC BLD IMMUNO SCREENon - OCCULT BLOOD Negative Normal NEGATIVE [facility] Comment on above: Performed By: #### O BSCRN #### [facility] [address] [place] [address] Dr. Lucille Lama INSULINon 01-19-2022 Insulin 25.6 uIU/mL Critically high 2.6-24.9 [facility] Comment on above: Performed By: #### I NSULIN #### [facility] [address] [place] [address] Dr. Lucille Lama CBC AUTO DIFFon 01-18-2022 BASO # 0.0 103/ul Normal 0.0-0.1 [facility] Comment on above: Performed By: #### C BC #### [facility] [address] [place] [address] Dr. Lucille Lama Basophils/100 WBC (Bld) 0.5 % Normal 0.2-2.0 [facility] Comment on above: Performed By: #### C BC #### [facility] [address] [place] [address] Dr. Lucille Lama EO # 0.1 103/ul Normal 0.0-0.7 [facility] Comment on above: Performed By: #### C BC #### [facility] [address] [place] [address] Dr. Lucille Lama Eosinophils/100 WBC (Bld) 1.5 % Normal 0.9-7.0 [facility] Comment on above: Performed By: #### C BC #### [facility] [address] [place] [address] Dr. Lucille Lama Erythrocyte distribution width (RBC) [Ratio] 12.5 % Normal 11.0-15.0 [facility] Comment on above: Performed By: #### C BC #### [facility] [address] [place] [address] Dr. Lucille Lama Hematocrit (Bld) [Volume fraction] 42.7 % Normal 36.0-48.0 [facility] Comment on above: Performed By: #### C BC #### [facility] [address] [place] [address] Dr. Lucille Lama Hemoglobin (Bld) [Mass/Vol] 13.2 g/dL Normal 12.0-16.0 [facility] Comment on above: Performed By: #### C BC #### [facility] [address] [place] [address] Dr. Lucille Lama IG # 0.05 10e3/ul Critically high 0.00-0.03 [facility] Comment on above: Performed By: #### C BC #### [facility] [address] [place] [address] Dr. Lucille Lama IG % 0.6 % Critically high 0.0-0.5 [facility] Comment on above: Performed By: #### C BC #### [facility] [address] [place] [address] Dr. Lucille Lama LYMPH # 2.3 103/ul Normal 1.2-3.8 [facility] Comment on above: Performed By: #### C BC #### [facility] [address] [place] [address] Dr. Lucille Lama Lymphocytes/100 WBC (Bld) 28.6 % Normal 20.5-60.0 [facility] Comment on above: Performed By: #### C BC #### [facility] [address] [place] [address] Dr. Lucille Lama MANUAL DIFF REQ NO Normal [facility] Comment on above: Performed By: #### C BC #### [facility] [address] [place] [address] Dr. Lucille Lama MCH (RBC) [Entitic mass] 26.2 pg Critically low 26.7-34.0 [facility] Comment on above: Performed By: #### C BC #### [facility] [address] [place] [address] Dr. Lucille Lama MCHC (RBC) [Mass/Vol] 30.9 g/dL Normal 29.9-35.2 [facility] Comment on above: Performed By: #### C BC #### [facility] [address] [place] [address] Dr. Lucille Lama MCV (RBC) [Entitic vol] 84.9 fL Normal 81.0-99.0 [facility] Comment on above: Performed By: #### C BC #### [facility] [address] [place] [address] Dr. Lucille Lama MONO # 0.4 103/ul Normal 0.3-0.8 [facility] Comment on above: Performed By: #### C BC #### [facility] [address] [place] [address] Dr. Lucille Lama Monocytes/100 WBC (Bld) 5.2 % Normal 1.7-12.0 [facility] Comment on above: Performed By: #### C BC #### [facility] [address] [place] [address] Dr. Lucille Lama NEUT # 5.0 103/ul Normal 1.4-6.5 [facility] Comment on above: Performed By: #### C BC #### [facility] [address] [place] [address] Dr. Lucille Lama Neutrophils/100 WBC (Bld) 63.6 % Normal 43.0-75.0 [facility] Comment on above: Performed By: #### C BC #### [facility] [address] [place] [address] Dr. Lucille Lama Platelet mean volume (Bld) [Entitic vol] 8.5 fL Critically low 9.5-13.5 [facility] Comment on above: Performed By: #### C BC #### [facility] [address] [address] [address] Lucille Lama PLT 436 103/ul Normal 150-450 [facility] Comment on above: Performed By: #### C BC #### [facility] [address] [address] [address] Lucille Lama RBC 5.03 106/ul Normal 4.20-5.40 [facility] Comment on above: Performed By: #### C BC #### [facility] [address] [address] [address] Lucille Lama WBC 7.9 103/ul Normal 4.0-11.0 [facility] Comment on above: Performed By: #### C BC #### [facility] [address] [address] [address] Lucille Lama FREE THYROXINE INDEX T7on FTI 2.34 Normal 1.30-4.50 [facility] Comment on above: Performed By: #### C MP, TSH, LIPID, T7 ####[facility] [address] [id number]. Lucille Lama T3U 30.0 % Normal 30.0-39.0 [facility] Comment on above: Performed By: #### C MP, TSH, LIPID, T7 ####[facility] [address] [id number]. Lucille Lama T4 [Mass/Vol] 7.80 ug/dL Normal 4.80-13.90 [facility] Comment on above: Performed By: #### C MP, TSH, LIPID, T7 ####[facility] [address] [id number]. Lucille Lama GLYCOHEMOGLOBIN A1Con 2021 ADA RECOMMENDATION SEE BELOW Normal [facility] Comment on above: Result Comment: ADA RECOMMENDED LIMIT 4.0 - 6.0 ADA THERAPEUTIC TARGET < 7.0 ACTION SUGGESTED > 7.0 Performed By: #### A 1C ####[facility] [address] [place], [place] [address]Ji. Lucille Lama Glucose [Mass/Vol] 120 mg/dL Normal [facility] Comment on above: Performed By: #### A 1C ####[facility] [address] [place], [place] [address]Xx. Lucille Lama HbA1c (Bld) [Mass fraction] 5.8 % Normal 4.5-6.2 [facility] Comment on above: Performed By: #### A 1C ####[facility] [address] [id number]. Lucille Lama IRONon 01-18-2022 Iron [Mass/Vol] 48.0 ug/dL Critically low 50.0-170.0 [facility] Comment on above: Performed By: #### I BRIANA #### [facility] [address] [place], [place] [address] Dr. Lucille Lama LIPID PROFILEon 01-18-2022 CHOL-HDL RATIO NORM SEE BELOW Normal [facility] Comment on above: Result Comment: 3.3 - 4.4 LOW RISK 4.4 - 7.1 AVERAGE RISK 7.1 - 11.0 MODERATE RISK >11.0 HIGH RISK Performed By: #### C MP, TSH, LIPID, T7 ####[facility] [address] [id number]. Lucille Lama Cholesterol [Mass/Vol] 217 mg/dL Critically high <=200 [facility] Comment on above: Performed By: #### C MP, TSH, LIPID, T7 ####[facility] [address] [place], [place] [address]Gh. Lucille Lama Cholesterol in HDL [Mass/Vol] 38 mg/dL Critically low 40-60 [facility] Comment on above: Performed By: #### C MP, TSH, LIPID, T7 ####[facility] [address] [place], [place] [address]Fi. Lucille Lama Cholesterol in LDL [Mass/Vol] 124.8 mg/dL Normal [facility] Comment on above: Performed By: #### C MP, TSH, LIPID, T7 ####[facility] [address] [place] [phone]. Lucille Lama Cholesterol.total/Ch olesterol in HDL [Mass ratio] 5.7 {ratio} Normal [facility] Comment on above: Performed By: #### C MP, TSH, LIPID, T7 ####[facility] [address] [id number]. Lucille Lama HDL NORMAL > or = 60 mg/dl - LOW CARDIOVASCULAR RISK <40 mg/dl - HIGH CARDIOVASCULAR RISK Normal [facility] Comment on above: Performed By: #### C MP, TSH, LIPID, T7 ####[facility] [address] [phone]. Lucille Lama LDL CALC NORMAL SEE BELOW Normal [facility] Comment on above: Result Comment: <100 mg/dl OPTIMAL 100 - 129 mg/dl NEAR OR ABOVE OPTIMAL 130 - 159 mg/dl BORDERLINE HIGH 160 - 189 mg/dl HIGH >190 mg/dl VERY HIGH Performed By: #### C MP, TSH, LIPID, T7 ####[facility] [address] [phone]. Lucille Lama Triglyceride [Mass/Vol] 271 mg/dL Critically high <=150 [facility] Comment on above: Performed By: #### C MP, TSH, LIPID, T7 ####[facility] [address] [place] [phone]. Lucille Lama VLDL CALC 54.2 mg/dL Normal [facility] Comment on above: Performed By: #### C MP, TSH, LIPID, T7 ####[facility] [address] [place] [phone]. Lucille Lama PROF 14(COMP METB)on 022 Albumin [Mass/Vol] 3.4 g/dL Normal 3.4-5.0 [facility] Comment on above: Performed By: #### C MP, TSH, LIPID, T7 ####[facility] [address] [place] [phone]. Lucille Lama Albumin/Globulin [Mass ratio] 0.8 {ratio} Normal [facility] Comment on above: Performed By: #### C MP, TSH, LIPID, T7 ####[facility] [address] [place] [address]Dr. Lucille Lama ALP [Catalytic activity/Vol] 115 U/L Normal 46-116 [facility] Comment on above: Performed By: #### C MP, TSH, LIPID, T7 ####[facility] [address] [place] [address]Dr. Lucille Lama ALT [Catalytic activity/Vol] 35 U/L Normal 14-59 [facility] Comment on above: Performed By: #### C MP, TSH, LIPID, T7 ####[facility] [address] [place] [address]Dr. Lucille Lama Anion gap [Moles/Vol] 11.4 mmol/L Normal [facility] Comment on above: Performed By: #### C MP, TSH, LIPID, T7 ####[facility] [address] [place], [place] [address]Dr. Lucille Lama AST [Catalytic activity/Vol] 16 U/L Normal 15-37 [facility] Comment on above: Performed By: #### C MP, TSH, LIPID, T7 ####[facility] [address] [place], [place] [address]Dr. Lucille Lama Bilirubin [Mass/Vol] 0.5 mg/dL Normal 0.2-1.0 [facility] Comment on above: Performed By: #### C MP, TSH, LIPID, T7 ####[facility] [address] [place], [place] [address]Dr. Lucille Lama Calcium [Mass/Vol] 9.0 mg/dL Normal 8.5-10.1 [facility] Comment on above: Performed By: #### C MP, TSH, LIPID, T7 ####[facility] [address] [place], [place] [address]Dr. Lucille Lama Chloride [Moles/Vol] 103 mmol/L Normal 98-107 [facility] Comment on above: Performed By: #### C MP, TSH, LIPID, T7 ####[facility] [address] [place], [place] [address]Dr. Lucille Lama CO2 [Moles/Vol] 26.4 mmol/L Normal 21.0-32.0 [facility] Comment on above: Performed By: #### C MP, TSH, LIPID, T7 ####[facility] [address] [place] [address]Dr. Lucille Lama Creatinine [Mass/Vol] 0.76 mg/dL Normal 0.55-1.02 [facility] Comment on above: Performed By: #### C MP, TSH, LIPID, T7 ####[facility] [address] [place] [address]Dr. Adepatricia Lama EGFR-AF BELARUSIAN >60 Normal >=60 [facility] Comment on above: Performed By: #### C MP, TSH, LIPID, T7 ####[facility] [address] [place] [address]Dr. Adepatricia Lama EGFR-NON AF BELARUSIAN >60 Normal >=60 [facility] Comment on above: Performed By: #### C MP, TSH, LIPID, T7 ####[facility] [address] [place] [address]Dr. Adepatricia Lama Globulin (S) [Mass/Vol] 4.2 g/dL Normal [facility] Comment on above: Performed By: #### C MP, TSH, LIPID, T7 ####[facility] [address] [place] [address]Dr. Lucille Lama Glucose [Mass/Vol] 89 mg/dL Normal 74-106 [facility] Comment on above: Performed By: #### C MP, TSH, LIPID, T7 ####[facility] [address] [place] [address]Dr. Adepatricia Lama Potassium [Moles/Vol] 3.8 mmol/L Normal 3.5-5.1 [facility] Comment on above: Performed By: #### C MP, TSH, LIPID, T7 ####[facility] [address] [place] [address]Dr. Lucille Lama Protein [Mass/Vol] 7.6 g/dL Normal 6.4-8.2 [facility] Comment on above: Performed By: #### C MP, TSH, LIPID, T7 ####[facility] [address] [place] [address]Dr. Lucille Lama Sodium [Moles/Vol] 137 mmol/L Normal 136-145 [facility] Comment on above: Performed By: #### C MP, TSH, LIPID, T7 ####[facility] [address] [place], [place] [address]Dr. Lucille Lama Urea nitrogen [Mass/Vol] 8.0 mg/dL Normal 7.0-18.0 [facility] Comment on above: Performed By: #### C MP, TSH, LIPID, T7 ####[facility] [address] [place], [place] [address]Dr. Lucille Lama Urea nitrogen/Creatinine [Mass ratio] 10.5 mg/mg Normal [facility] Comment on above: Performed By: #### C MP, TSH, LIPID, T7 ####[facility] [address] [place], [place] [address]Dr. Lucille Lama TSHon 01-18-2022 TSH 1.277 uIU/mL Normal 0.358-3.740 [facility] Comment on above: Performed By: #### C MP, TSH, LIPID, T7 ####[facility] [address] [place], [place] [address]Dr. Lucille Lama CBC AUTO DIFFon 01-07-2022 BASO # 0.1 103/ul Normal 0.0-0.1 [facility] Comment on above: Performed By: #### C BC ####[facility] X[address]rs[address] [place], [place] [address]Dr. Lucille Kelby Basophils/100 WBC (Bld) 0.4 % Normal 0.2-2.0 [facility] Comment on above: Performed By: #### C BC ####[facility] [address] [place], [place] [address]Dr. Adepatricia Lama EO # 0.0 103/ul Normal 0.0-0.7 [facility] Comment on above: Performed By: #### C BC ####[facility] Ow[address] [place], [place] [address]Dr. Lucille Lama Eosinophils/100 WBC (Bld) 0.2 % Critically low 0.9-7.0 [facility] Comment on above: Performed By: #### C BC ####[facility] [address] [place], [place] [address]Dr. Lucille Lama Erythrocyte distribution width (RBC) [Ratio] 12.4 % Normal 11.0-15.0 [facility] Comment on above: Performed By: #### C BC ####[facility] [address] [place], [place] [address]Dr. Lucille Lama Hematocrit (Bld) [Volume fraction] 44.5 % Normal 36.0-48.0 [facility] Comment on above: Performed By: #### C BC ####[facility] [address]ius[address] [place], [place] [address]Dr. Lucille Lama Hemoglobin (Bld) [Mass/Vol] 14.2 g/dL Normal 12.0-16.0 [facility] Comment on above: Performed By: #### C BC ####[facility] [address] [place], [place] [address]Dr. Lucille Lama IG # 0.05 10e3/ul Critically high 0.00-0.03 [facility] Comment on above: Performed By: #### C BC ####[facility] [address] [place], [place] [address]Dr. Lucille Lama IG % 0.4 % Normal 0.0-0.5 [facility] Comment on above: Performed By: #### C BC ####[facility] [address] [place], [place] [address]Dr. Lucille Lama LYMPH # 1.7 103/ul Normal 1.2-3.8 [facility] Comment on above: Performed By: #### C BC ####[facility] [address] [place], [place] [address]Dr. Lucille Lama Lymphocytes/100 WBC (Bld) 13.5 % Critically low 20.5-60.0 [facility] Comment on above: Performed By: #### C BC ####[facility] [address] [place] [id number]. Luiclle Lama MANUAL DIFF REQ NO Normal [facility] Comment on above: Performed By: #### C BC ####[facility] [address] [id number]. Lucille Lama MCH (RBC) [Entitic mass] 26.5 pg Critically low 26.7-34.0 [facility] Comment on above: Performed By: #### C BC ####[facility] [address] [place] [address]Dr. Lucille Lama MCHC (RBC) [Mass/Vol] 31.9 g/dL Normal 29.9-35.2 [facility] Comment on above: Performed By: #### C BC ####[facility] [address] [place] [address]Dr. Lucille Kelby MCV (RBC) [Entitic vol] 83.0 fL Normal 81.0-99.0 [facility] Comment on above: Performed By: #### C BC ####[facility] [address] [place] [id number]. Lucille Kelby MONO # 0.5 103/ul Normal 0.3-0.8 [facility] Comment on above: Performed By: #### C BC ####[facility] [address] [place] [address]Dr. Lucille Lama Monocytes/100 WBC (Bld) 4.1 % Normal 1.7-12.0 [facility] Comment on above: Performed By: #### C BC ####[facility] [address] [place] [phone]. Adepatricia Lama NEUT # 10.0 103/ul Critically high 1.4-6.5 [facility] Comment on above: Performed By: #### C BC ####[facility] [address] [place] [phone]. Lucille Lama Neutrophils/100 WBC (Bld) 81.4 % Critically high 43.0-75.0 [facility] Comment on above: Performed By: #### C BC ####[facility] [address] [place], [place] [address]Bb. Lucille Lama Platelet mean volume (Bld) [Entitic vol] 8.8 fL Critically low 9.5-13.5 [facility] Comment on above: Performed By: #### C BC ####[facility] [address] [place], [place] [address]Dl. Lucille Lama PLT 375 103/ul Normal 150-450 [facility] Comment on above: Performed By: #### C BC ####[facility] [address] [place] [phone]. Lucille Lama RBC 5.36 106/ul Normal 4.20-5.40 [facility] Comment on above: Performed By: #### C BC ####[facility] [address] [place] [phone]. Lucille Lama WBC 12.3 103/ul Critically high 4.0-11.0 [facility] [place] [facility] Comment on above: Performed By: #### C BC ####[facility] [address] [place] [phone]. Lucille Lama LACTATE/LACTIC ACIDon 2021 Lactate [Moles/Vol] 1.3 mmol/L Normal 0.4-1.9 [facility] Comment on above: Performed By: #### L ACT #### [facility] [address] [place], [place] [address] Dr. Lucille Lama CARDIAC SANDY ADMITon 022 CK [Catalytic activity/Vol] 36 U/L Normal 26-192 [facility] Comment on above: Performed By: #### T SH, CMADM, CMP ####[facility] [address] [place] [id number] Lama CK.MB [Mass/Vol] 0.63 ng/mL Normal <=3.60 [facility] [place] [facility] Comment on above: Performed By: #### T SH, CMADM, CMP ####[facility] [address] [place] [id number] Lama HSTROP 5.5 pg/mL Normal 4.0-51.3 [facility] Comment on above: Result Comment: CUT- OFF POINTS HAVE BEEN ESTABLISHED BASED ON THE FOURTH UNIVERSAL DEFINITIONS OF MYOCARDIAL INFARCTION. THE UPPER REFERENCE LIMIT (URL) OF TROPONIN, DEFINED THE 99TH PERCENTILE OF cTnI DISTRIBUTION IN A REFERENCE POPULATION, HAS BEEN CONFIRMED THE DECISION THRESHOLD FOR VT DIAGNOSIS. Performed By: #### T SH, CMADM, CMP ####[facility] [address] [place] [id number]. Lucille Lama FREDA 30 ng/mL Normal 9-82 [facility] Comment on above: Performed By: #### T SH, CMADM, CMP ####[facility] [address] [place] [address]Dr. Lucille Lama CBC AUTO DIFFon 11-15-2021 BASO # 0.0 103/ul Normal 0.0-0.1 [facility] Comment on above: Performed By: #### C BC #### [facility] [address] [address] [address] Lucille Lama Basophils/100 WBC (Bld) 0.4 % Normal 0.2-2.0 [facility] Comment on above: Performed By: #### C BC #### [facility] [address] [address] [address] Lucille Lama EO # 0.1 103/ul Normal 0.0-0.7 [facility] Comment on above: Performed By: #### C BC #### [facility] [address] [address] [address] Lucille Lama Eosinophils/100 WBC (Bld) 1.0 % Normal 0.9-7.0 [facility] Comment on above: Performed By: #### C BC #### [facility] [address] [address] [address] Lucille Lama Erythrocyte distribution width (RBC) [Ratio] 12.6 % Normal 11.0-15.0 [facility] Comment on above: Performed By: #### C BC #### [facility] [address] [address] [address] Lucille Lama Hematocrit (Bld) [Volume fraction] 43.1 % Normal 36.0-48.0 [facility] Comment on above: Performed By: #### C BC #### [facility] [address] [place] [address] Dr. Lucille Lama Hemoglobin (Bld) [Mass/Vol] 13.4 g/dL Normal 12.0-16.0 [facility] Comment on above: Performed By: #### C BC #### [facility] [address] [place] [address] Dr. Lucille Lama IG # 0.03 10e3/ul Normal 0.00-0.03 [facility] Comment on above: Performed By: #### C BC #### [facility] [address] [place] [address] Dr. Lucille Lama IG % 0.4 % Normal 0.0-0.5 [facility] Comment on above: Performed By: #### C BC #### [facility] [address] [place] [address] Dr. Lucille Lama LYMPH # 1.3 103/ul Normal 1.2-3.8 [facility] Comment on above: Performed By: #### C BC #### [facility] [address] [place] [address] Dr. Lucille Lama Lymphocytes/100 WBC (Bld) 15.4 % Critically low 20.5-60.0 [facility] Comment on above: Performed By: #### C BC #### [facility] [address] [place] [address] Dr. Lucille Lama MANUAL DIFF REQ NO Normal [facility] Comment on above: Performed By: #### C BC #### [facility] [address] [place] [address] Dr. Lucille Lama MCH (RBC) [Entitic mass] 26.7 pg Normal 26.7-34.0 [facility] Comment on above: Performed By: #### C BC #### [facility] [address] [place] [address] Dr. Lucille Lama MCHC (RBC) [Mass/Vol] 31.1 g/dL Normal 29.9-35.2 [facility] Comment on above: Performed By: #### C BC #### [facility] [address] [address] [address] Lucille Lama MCV (RBC) [Entitic vol] 86.0 fL Normal 81.0-99.0 [facility] Comment on above: Performed By: #### C BC #### [facility] [address] [address] [address] Lucille Lama MONO # 0.4 103/ul Normal 0.3-0.8 [facility] Comment on above: Performed By: #### C BC #### [facility] [address] [place] [address] Dr. Lucille Lama Monocytes/100 WBC (Bld) 4.8 % Normal 1.7-12.0 [facility] Comment on above: Performed By: #### C BC #### [facility] [address] [place] [address] Dr. Lucille Lama NEUT # 6.5 103/ul Normal 1.4-6.5 [facility] Comment on above: Performed By: #### C BC #### [facility] [address] [place] [address] Dr. Lucille Lama Neutrophils/100 WBC (Bld) 78.0 % Critically high 43.0-75.0 [facility] Comment on above: Performed By: #### C BC #### [facility] [address] [place] [address] Dr. Lucille Lama Platelet mean volume (Bld) [Entitic vol] 8.5 fL Critically low 9.5-13.5 [facility] Comment on above: Performed By: #### C BC #### [facility] [address] [place] [address] Dr. Lucille Lama PLT 375 103/ul Normal 150-450 [facility] Comment on above: Performed By: #### C BC #### [facility] [address] [place] [address] Dr. Lucille Lama RBC 5.01 106/ul Normal 4.20-5.40 [facility] Comment on above: Performed By: #### C BC #### [facility] [address] [address] [address] Lucille Lama WBC 8.4 103/ul Normal 4.0-11.0 [facility] Comment on above: Performed By: #### C BC #### [facility] [address] [place] [address] HEAD WO CONon [...] STEVENSON COTTRELL Date: 2021-11-14 23:28 Normal [facility] PROF 14(COMP METB)on 022 Albumin [Mass/Vol] 3.5 g/dL Normal 3.4-5.0 [facility] Comment on above: Performed By: #### T BRADY MASON, CMP #### [facility] [address] [place] [address] Dr. Lucille Lama Albumin/Globulin [Mass ratio] 0.9 {ratio} Normal [facility] Comment on above: Performed By: #### T BRADY MASON, CMP #### [facility] [address] [place] [address] Dr. Lucille Lama ALP [Catalytic activity/Vol] 133 U/L Critically high 46-116 [facility] Comment on above: Performed By: #### T SH, CMADM, CMP #### [facility] [address] [address] [address] Lucille Lama ALT [Catalytic activity/Vol] 28 U/L Normal 14-59 [facility] Comment on above: Performed By: #### T SH, CMADM, CMP #### [facility] [address] [place] [address] Dr. Lucille Lama Anion gap [Moles/Vol] 9.0 mmol/L Normal [facility] Comment on above: Performed By: #### T SH, CMADM, CMP #### [facility] [address] [place] [address] Dr. Lucille Lama AST [Catalytic activity/Vol] 15 U/L Normal 15-37 [facility] Comment on above: Performed By: #### T MARLON, CMADM, CMP #### [facility] [address] [place] [address] Dr. Lucille Lama Bilirubin [Mass/Vol] 0.6 mg/dL Normal 0.2-1.0 [facility] Comment on above: Performed By: #### T MARLON, CMADM, CMP #### [facility] [address] [address] [address] Lucille Lama Calcium [Mass/Vol] 8.5 mg/dL Normal 8.5-10.1 [facility] Comment on above: Performed By: #### T MARLON, CMADM, CMP #### [facility] [address] [place] [address] Dr. Lucille Lama Chloride [Moles/Vol] 101 mmol/L Normal 98-107 [facility] Comment on above: Performed By: #### T MARLON, CMADM, CMP #### [facility] [address] [place] [address] Dr. Lucille Lama CO2 [Moles/Vol] 27.6 mmol/L Normal 21.0-32.0 [facility] Comment on above: Performed By: #### T SH, CMADM, CMP #### [facility] [address] [address] [address] Lucille Lama Creatinine [Mass/Vol] 0.81 mg/dL Normal 0.55-1.02 [facility] Comment on above: Performed By: #### T BRADY MASON, CMP #### [facility] [address] [address] [address] Lucille Lama EGFR-AF BELARUSIAN >60 Normal >=60 [facility] Comment on above: Performed By: #### T BRADY MASON, CMP #### [facility] [address] [address] [address] Lucille Lama EGFR-NON AF BELARUSIAN >60 Normal >=60 [facility] Comment on above: Performed By: #### T BRADY MASON, CMP #### [facility] [address] [place] [address] Dr. Lucille Lama Globulin (S) [Mass/Vol] 4.1 g/dL Normal [facility] Comment on above: Performed By: #### T BRADY MASON, CMP #### [facility] [address] [address] [address] Lucille Lama Glucose [Mass/Vol] 114 mg/dL Critically high 74-106 [facility] Comment on above: Performed By: #### T BRADY MASON, CMP #### [facility] [address] [address] [address] Lucille Lama Potassium [Moles/Vol] 3.6 mmol/L Normal 3.5-5.1 [facility] Comment on above: Performed By: #### T BRADY MASON, CMP #### [facility] [address] [address] [address] Lucille Lama Protein [Mass/Vol] 7.6 g/dL Normal 6.1-8.2 [facility] Comment on above: Performed By: #### T BRADY MASON, CMP #### [facility] [address] [place] [address] Dr. Lucille Lama Sodium [Moles/Vol] 134 mmol/L Critically low 136-145 [facility] Comment on above: Performed By: #### T BRADY MASON, CMP #### [facility] [address] [place] [address] Dr. Lucille Lama Urea nitrogen [Mass/Vol] 9.0 mg/dL Normal 7.0-18.0 [facility] Comment on above: Performed By: #### T BRADY MASON, CMP #### [facility] [address] [place] [address] Dr. Lucille Lama Urea nitrogen/Creatinine [Mass ratio] 11.1 mg/mg Normal [facility] Comment on above: Performed By: #### T BRADY MASON, CMP #### [facility] [address] [place] [address] Dr. Lucille Lama TSHon 11-15-2021 TSH 0.963 uIU/mL Normal 0.470-4.680 [facility] Comment on above: Performed By: #### T BRADY MASON, CMP #### [facility] [address] [place] [address] Dr. Lucille Lama TSH RANGE SEE BELOW Normal [facility] Comment on above: Result Comment: <0.3 4 UIU/ml HYPERTHYROID 0.34-5.60 UIU/ml EUTHYROID >5.60 UIU/ml HYPOTHYROID Performed By: #### T BRADY MASON, CMP #### [facility] [address] [place] [address] Dr. Lucille Lama XR CHEST 2 Von [...] by: STEVENSON COTTRELL Date: 2021-11-14 23:29 Normal [facility] Vital Signs Date Time Vital Sign Value Performing Clinician Facility 03-10-2024 15:31-0400 Blood Pressure Location Jessee BRANDYN [facility]-David [facility] 03-10-2024 15:31-0400 Diastolic blood pressure 76 mm[Hg] [facility] 03-10-2024 15:31-0400 Heart rate 72 /min Jessee NILL [facility] 03-10-2024 15:31-0400 Respiratory rate 16 /min Jessee PONCEL [facility] 03-10-2024 15:31-0400 Systolic blood pressure 126 mm[Hg] Jessee PONCEL [facility] 04-27-2023 13:45-0400 Body height 177.8 cm Malinda Marion Other [facility] Other 04-27-2023 13:45-0400 Body mass index (BMI) [Ratio] 35.01 kg/m2 Malinda Marion Other [facility] Other 04-27-2023 13:45-0400 Body temperature 98.1 [degF] Malinda Marion Other [facility] Other 04-27-2023 13:45-0400 Body weight 110.68 kg Malinda Marion Other [facility] Other 04-27-2023 13:45-0400 Diastolic blood pressure 79 mm[Hg] Malinda Marion Other [facility] Other 04-27-2023 13:45-0400 Respiratory rate 18 /min Malinda Marion Other [facility] Other 04-27-2023 13:45-0400 SaO2% (BldA) [Mass fraction] 96 % Malinda Marion Other [facility] Other 04-27-2023 13:45-0400 Systolic blood pressure 142 mm[Hg] Malinda Marion Other [facility] Other Encounters Encounter Date Encounter Type Care Provider Facility Start: 04-15-2024 End: 04-15-2024 ambulatory Jessee AHUMADA Facility:[id number] Start: 03-10-2024 End: 03-10-2024 ambulatory [facility] Start: 03-10-2024 End: 03-10-2024 Patient encounter procedure Jessee AHUMADA [facility] Start: 02-06-2024 ambulatory [facility] Start: 04-27-2023 End: 04-27-2023 ambulatory Malinda Marion Other [facility] Other Start: 04-27-2023 Office outpatient vi sit 15 minutes Malinda Marion [facility] Start: 02-21-2022 End: 02-22-[address] CM ARDON Facility:[facility] Start: 01-25-2022 Encounter for genera l adult medical examination without abnormal findings DR CM ARDON [facility] Start: 01-24-2022 End: 01-24-2022 ambulatory [...] Immunization Date Immunization Notes Care Provider Fa cility 04-15-2021 SARS-CoV-2 (COVID-19 ) mRNA BNT-162b2 vax Jes[facility] PONCEL [facility] 03-25-2021 SARS-CoV-2 (COVID-19 ) mRNA BNT-162b2 vax Jessee PONCEL [facility] Payers Date Payer Category Payer Unknown [id number] 2.16.84 [id number] 1970 Unknown [id number] 2.16.84 [id number] 1970 Unknown [id number] 2.16.84 [id number] 1970 Unknown [id number] 2.16.84 [id number] 1970 Unknown [id number] 2.16.84 [id number] 1970 Unknown [id number] 2.16.84 [id number] 1970 Unknown [id number] 2.16.8 [id number] 1970 Unknown [id number] 2.16.8 [id number] 1959 Unknown [id number] Social History Date Type Detail Facility Unknown if ever smoked [facility] Other Sex Assigned [facility] Start: 03-10-2024 Tobacco smoking status Ex-smoker (fi nding) [facility] Tobacco smoking status Never [facility] Functional Status Date Assessment Result Facility 03-10-2024 Functional Status N/A [facility] Clinical Note 03-10-2024 Note Date & Type Note Facility 03-10-2024 Note General Surgery Offi ce/Clinic Note Chief Complaint consultation for [...] SARS-CoV-2 (COVID-19) mRNA BNT-162b2 vax 03/25/[address] [facility] Comment on above: Result Comment: Elec tronically Signed By: BARNDYN BURCIAGA, Jessee Lopez\Date and Time Signed: 03/10/24 16:06 EDT Evaluation [...] no improvement in 2 to 3 days [facility] Other Evaluation + Plan note Note Date & Type Note Facility Evaluation + Plan note No data available for this section [facility] History general Narrative - Reported Note Date & Type Note Facility History general Narrative - Reported Type Medical History neuropathy Medical History thyroid disease Surgical History partial hysterectomy Surgical History C section Hospitalization History see above [facility] Other Hospital Discharge instructions Note Date & Type Note Facility Hospital Discharge instructions No data available for this section [facility] Progress note Note Date & Type Note Facility Progress note No data available for this section [facility] Summary Purpose Family History No Family History Records Found No data available for this section No Family History Records Found Advance Directives No Advanced Directives Records FoundNo Advanced Directives Records Found Additional Source Comments INFORMATION SOURCE (unrecogn ized section and content) DATE CREATED AUTHOR 02/23/2022 [facility] DATE CREATED AUTHOR AUTHOR'S ORGANIZ ATION 04/27/2024 [facility] REASON FOR VISIT (unrecogniz ed section and content) SINUS, DRAINAGE CHEST CONGES TION Patient Care team informatio n (unrecognized section and content) Personnel Name: Cm Ardon MD Address: Address: [address] [place] [address] FOR RECORDS PERTAINING TO PATIENTS WHO ARE [...] BE BASED ON THE PRIMARY CLINICAL RECORDS. [facility]. provides no warranty or guarantee of the accuracy or completeness of information in this document.
[2025-02-24 14:42] LABS: Hematocrit 40.4 % (36.0-48.0); Hemoglobin 13.2 g/dL (12.0-16.0); Immature Granulocytes Abs Auto 0.02 10^3/uL (0.00-0.03); Immature Granulocytes Pct Auto 0.3 % (0.0-0.5); Lymphocytes Absolute Auto 2.0 10^3/uL (1.2-3.8); Mean Corpuscular HGB Conc 32.7 g/dL (29.9-35.2); Mean Corpuscular Hemoglobin 28.0 pg (26.7-34.0); Mean Corpuscular Volume 85.6 fL (81.0-99.0); Platelet Count 233 10^3/uL (150-450); Red Blood Count 4.72 10^6/uL (4.20-5.40); White Blood Count 6.3 10^3/uL (4.0-11.0)
[2025-02-24 15:58] LABS: Alanine Aminotransferase 27 U/L (14-59); Albumin Globulin Ratio 0.9; Albumin Level 3.6 g/dL (3.4-5.0); Alkaline Phosphatase 130 U/L (46-116); Anion Gap 6.9; Aspartate Amino Transferase 13 U/L (15-37); Blood Urea Nitrogen 13.0 mg/dL (7.0-18.0); Calcium 9.4 mg/dL (8.5-10.1); Carbon Dioxide 32.0 mmol/L (21.0-32.0); Chloride 104 mmol/L (98-107); Cholesterol 237 mg/dL (<=200); Estimated GFR (African America >60 (>=60 mL/min/1.73m^2); Estimated GFR (Non-African Ame >60 (>=60 mL/min/1.73m^2); Free T3 3.50 pg/mL (2.18-3.98); Globulin 4.1 g/dL; Glucose 88 mg/dL (74-106); HDL Cholesterol 61 mg/dL (40-60); Potassium 3.9 mmol/L (3.5-5.1); Sodium 139 mmol/L (136-145); Thyroid Stimulating Hormone 0.331 uIU/mL (0.358-3.740); Total Protein 7.7 g/dL (6.4-8.2); Triglycerides 153 mg/dL (<=150); VLDL CHOLESTEROL 30.6 mg/dL
== END 2025-02-24 14:15 | disposition home or self-care (01) ==
LOC: LAB 14:16
PROVIDERS: PCP Family Medicine; Visit Provider Family Medicine
DX: Z00.00 Encounter for general adult medical examination without abnormal findings (principal); R73.09 Other abnormal glucose; E03.9 Hypothyroidism, unspecified
CPT/HCPCS: 36415; 80053; 80061; 83036; 84436; 84443; 84481; 85025

== ENCOUNTER 2025-03-23 09:25 | Outpatient (OUT) | payer OTHER, SELFPAY ==
--- NOTE | 2025-03-23 09:31 | CT_ITS ---
The [address] [address] Patient Name: NIKIA TORRES MRN: [id number] date: 1970 Sex: F Assigned Patient Location: CT Current Patient Location: CT Accession/Order Number: [id number] Exam Date: 03/23/2025 09:33 Report Date: 03/23/2025 11:51 At the request of: CM BONE MD Procedure: CT lung screening low-dose LOW-DOSE SCREENING CHEST CT WITHOUT CONTRAST COMPARISON: None CLINICAL DATA: Former smoker for approximately 20 years. Spiral axial unenhanced low-dose images were obtained through the chest. Images were reviewed using both narrow and wide window settings. This CT exam was performed using one or more following dose reduction techniques: Automated exposure control, adjustment of the mA and/or kV according to patient size, or use of iterative reconstruction technique. The heart is normal size. No pericardial effusion is seen. No aortic aneurysm is identified. There are a few small mediastinal and axillary lymph nodes. A tiny hiatal hernia is seen. There are tiny endplate spurs. Pleural parenchymal scarring is present at the lung apices. There is no additional consolidation, pleural effusion or pneumothorax. There are a few tiny 2 mm bilateral upper lobe pulmonary nodules. There is minor nodular pleural thickening at the left lower lobe. Limited cuts through the upper abdomen show no contributory findings. CT/CT lung screening low-dose IMPRESSION: TINY PULMONARY NODULES. Lung RADS category 2 - benign Twelve-month low-dose CT follow-up suggested. Impression dictated by: Sandee Ramos M.D. 03/23/2025 11:51 AM Dictation Location: [employer] Electronically authenticated by: [id number] Y Date: 03/23/2025 11:51
--- NOTE | 2025-03-23 09:32 | MM_ITS ---
Patient Name: NIKIA TORRES MR#: [id number] : 1970 Exam Date: 03/23/2025 Ordering Doctor: DR CM BONE . RADIOLOGY REPORT PROCEDURE: MM TOMOSYNTHESIS SCREENING BI COMPARISON: MM TOMOSYNTHESIS SCREENING BI, 02/19/2024. MG MAMM SCREEN 3D SADI CAD, 02/21/2022. MG MAMM SCREEN SADI W CAD, 09/03/2018. INDICATIONS: well adult Calculator Name NCI Breast Cancer Risk Assessment Tool 5 Year Breast Cancer Risk 0.90% Lifetime Breast Cancer Risk 6.90% Personal Breast Cancer No Personal Ovarian Cancer No Treatments None Family Cancers Grandfather-paternal with lung cancer at age ~55. LOCATION: [facility] BREAST COMPOSITION: There are scattered areas of fibroglandular density. FINDINGS: DIAGNOSTIC CATEGORY 1--NEGATIVE. RIGHT BREAST: No significant suspicious finding. LEFT BREAST: No significant suspicious finding. RECOMMENDATIONS: ROUTINE MAMMOGRAM AND CLINICAL EVALUATION IN 12 MONTHS. Dictated by: Kamlesh Navarro DO on 03/23/2025 at 13:45 Approved by: Kamlesh Navarro DO on 03/23/2025 at 13:46
--- OUTSIDE RECORDS SUMMARY | 2025-03-23 09:39 | XMS_ITS | CCD ---
Author Organization [facility] Care Team Providers Care Filtration Supervisor Name Role Phone REVA, DR PABON Admitting Unavailable MEGY, DR PABON [...] Admitting Unavailable PAY, DR STRONG Consulting Unavailable REVA, DR PABON Primary Care Unavailable CottrellStevenson calabrese Consulting Unavailable ZAPATA, DR SANDY Kincaid Consulting Unavailable JODI, DR SANDY Kincaid Admitting Unavailable REVA, DR PABON Primary Care Unavailable JODI, DR SANDY Kincaid Attending Unavailable SHAHID, DR CONLEY Attending Unavailable SHAHID, DR CONLEY Consulting Unavailable SHAHID, DR CONLEY Admitting Unavailable REVA, DR PABON Primary Care Unavailable Malinda Marion Unavailable Cm Ardon Primary Care Physician Jessee AHUMADA Attending Cm Pacheco Referring Unavailable Jessee AHUMADA Attending Unavailable Cm Ardon MD Primary Care Provider Clarita Herman APRN Attending Provider [phone] Allergies Allergy Classification Reported Allergen(s) Allergy Type Date of Onset Reaction(s) Facility (1 source) No Known Medication Allergies; Translations: [No Known Medication Allergies] Propensity to adverse reactions (disorder) [facility] Medications Current Medications Medication Drug Class(es) Dates Sig (Normalized) Sig (Original) cephalexin 500 mg oral capsule (1 source) Cephalosporin Antibacterial Start: 02-28-2025 take 1 capsule by mouth four times daily Cephalexin 500 mg capsule Active 500 MG PO Four times daily 28 7 February 28, 2025 12:00am Complies with drug therapy fluticasone propionate 0.05 mg/actuat metered dose nasal spray (1 source) Corticosteroid Start: 04-27-2023 take 2 spray(s) nasal route once daily Fluticasone Propionate 50 MCG/ACT 2 sprays Nasally Once a day for 14 day(s) Apr, Active levothyroxine sodium 0.075 mg oral tablet (3 sources) l-Thyroxine Start: 02-28-2025 take 1 tablet by mouth once daily Levothyroxine (Synthroid) 75 mcg tablet Active 75 MCG PO Daily February 28, 2025 12:00am Complies with drug therapy Start: 02-21-2024 levothyroxine 75 mcg (0.075 mg) Tab 75 mcg = 1 tab(s), Oral, Daily, 0 Refill(s), Refills(s) 0 Start Date: 02/21/24 Status: Ordered Levothyroxine So dium Active liothyronine sodium 0.005 mg oral tablet (3 sources) l-Triiodothyronine Start: 02-28-2025 take 1 tablet by mouth once daily in the morning Liothyronine 5 mcg tablet Active 10 MCG PO Every morning February 28, 2025 12:00am Complies with drug therapy Start: 02-21-2024 liothyronine 5 mcg Tab 10 mcg = 2 [...] Episodic Other aftercare (1 source) Other termite treater (current) drug therapy; Translations: [OTH [facility] CURRENT DRUG THERAPY] Onset: 01-10-2022 Episodic Other [...] Reminders - From: Kristy Faye LPN To: [facility] - Clinical; Sent: 04/16/2024 11:28:51 EDT Show up: 03/16/2034 07:00:00 EDT Subject: colonoscopy recall Due Date/Time: 04/15/2034 07:00:00 EDT Reminder/Recall Patient due for screening colonoscopy 04/15/2034. [facility] Ambulatory Visit Summaryon 0 03-10-2024 Ambulatory Visit Summary Ambulatory Visit Summary HATTIE TORRES :1970 Visit Date:03/10/2024 Ambulatory Visit Instructions Your Diagnosis Screening for malignant neoplasm of colon Your Care Team Attending Physician - BRANDYN BURCIAGA, Jessee Kincaid Primary Care Physician - Reva BURCIAGA, Cm Referring Physician - Cm Ardon MD This [...] for choosing us for your care. [facility] COVID + FLU Quick Testingon 04-27-2023 SARS-CoV-2 (COVID-19) RNA ILDEFONSO+probe Ql (Unsp spec) Negative eyeQ Other COVID + FLU Quick Testing Negative eyeQ Other MG MAMM SCREEN 3D SADI CADon 02-21-2022 MG MAMM SCREEN 3D ASDI CAD Patient: HATTIE TORRES Exam Date: 02/21/2022 : 1970 Gender:F Ordering : DR CM ARDON . Admission #: [id number] Family : Order #: [id number] CLICK HERE TO VIEW EXAM RADIOLOGY REPORT [...] lung cancer at age 55. LOCATION: [facility] BREAST COMPOSITION: Heterogeneously dense,which may obscure small [...] MD on 02/21/2022 at 12:26 Normal [facility] OCC BLD IMMUNO SCREENon 01-12 OCCULT BLOOD Negative Normal NEGATIVE [facility] Comment on above: Performed By: #### O BSCRN #### [facility] [address] [address] [address] Lucille Lama INSULINon 01-19-2022 Insulin 25.6 uIU/mL Critically high 2.6-24.9 The [facility] Comment on above: Performed By: #### I NSULIN #### [facility] [address] [address] [address] Lucille Lama CBC AUTO DIFFon 01-18-2022 BASO # 0.0 103/ul Normal 0.0-0.1 [facility] Comment on above: Performed By: #### C BC #### [facility] [address] [address] [address] Lucille Lama Basophils/100 WBC (Bld) 0.5 % Normal 0.2-2.0 [facility] Comment on above: Performed By: #### C BC #### [facility] [address] [address] [address] Lucille Lama EO # 0.1 103/ul Normal 0.0-0.7 [facility] Comment on above: Performed By: #### C BC #### [facility] [address] [address] [address] Lucille Lama Eosinophils/100 WBC (Bld) 1.5 % Normal 0.9-7.0 [facility] Comment on above: Performed By: #### C BC #### [facility] [address] [address] [address] Lucille Lama Erythrocyte distribution width (RBC) [Ratio] 12.5 % Normal 11.0-15.0 [facility] Comment on above: Performed By: #### C BC #### [facility] [address] [address] [address] Lucille Lama Hematocrit (Bld) [Volume fraction] 42.7 % Normal 36.0-48.0 [facility] Comment on above: Performed By: #### C BC #### [facility] [address] [address] [address] Lucille Lama Hemoglobin (Bld) [Mass/Vol] 13.2 g/dL Normal 12.0-16.0 [facility] Comment on above: Performed By: #### C BC #### [facility] [address] [address] [address] Lucille Lama IG # 0.05 10e3/ul Critically high 0.00-0.03 [facility] Comment on above: Performed By: #### C BC #### [facility] [address] [address] [address] Lucille Lama IG % 0.6 % Critically high 0.0-0.5 [facility] Comment on above: Performed By: #### C BC #### [facility] [address] [place] [address] Dr. Lucille Lama LYMPH # 2.3 103/ul Normal 1.2-3.8 [facility] Comment on above: Performed By: #### C BC #### [facility] [address] [place] [address] Dr. Lucille Lama Lymphocytes/100 WBC (Bld) 28.6 % Normal 20.5-60.0 [facility] Comment on above: Performed By: #### C BC #### [facility] [address] [place] [address] Dr. Lucille Lama MANUAL DIFF REQ NO Normal [facility] Comment on above: Performed By: #### C BC #### [facility] [address] [place] [address] Dr. Lucille Lama MCH (RBC) [Entitic mass] 26.2 pg Critically low 26.7-34.0 [facility] Comment on above: Performed By: #### C BC #### [facility] [address] [place] [address] Dr. Lucille Lama MCHC (RBC) [Mass/Vol] 30.9 g/dL Normal 29.9-35.2 [facility] Comment on above: Performed By: #### C BC #### [facility] [address] [place] [address] Dr. Lucille Lama MCV (RBC) [Entitic vol] 84.9 fL Normal 81.0-99.0 [facility] Comment on above: Performed By: #### C BC #### [facility] [address] [place] [address] Dr. Lucille Lama MONO # 0.4 103/ul Normal 0.3-0.8 [facility] Comment on above: Performed By: #### C BC #### [facility] [address] [place] [address] Dr. Lucille Lama Monocytes/100 WBC (Bld) 5.2 % Normal 1.7-12.0 [facility] Comment on above: Performed By: #### C BC #### [facility] [address] [address] [address] Lucille Lama NEUT # 5.0 103/ul Normal 1.4-6.5 [facility] Comment on above: Performed By: #### C BC #### [facility] [address] [address] [address] Lucille Lama Neutrophils/100 WBC (Bld) 63.6 % Normal 43.0-75.0 [facility] Comment on above: Performed By: #### C BC #### [facility] [address] [address] [address] Lucille Lama Platelet mean volume (Bld) [Entitic vol] 8.5 fL Critically low 9.5-13.5 [facility] Comment on above: Performed By: #### C BC #### [facility] [address] [address] [address] Lucille Lama PLT 436 103/ul Normal 150-450 [facility] Comment on above: Performed By: #### C BC #### [facility] [address] [address] [address] Lucille Lama RBC 5.03 106/ul Normal 4.20-5.40 [facility] Comment on above: Performed By: #### C BC #### [facility] [address] [address] [address] Lucille Lama WBC 7.9 103/ul Normal 4.0-11.0 [facility] Comment on above: Performed By: #### C BC #### [facility] [address] [address] [address] Lucille Lama FREE THYROXINE INDEX T7on FTI 2.34 Normal 1.30-4.50 [facility] Comment on above: Performed By: #### C MP, TSH, LIPID, T7 ####[facility] [address] [address]Dr. Lucille Lama T3U 30.0 % Normal 30.0-39.0 [facility] Comment on above: Performed By: #### C MP, TSH, LIPID, T7 ####[facility] [address] [id number] Lama T4 [Mass/Vol] 7.80 ug/dL Normal 4.80-13.90 [facility] Comment on above: Performed By: #### C MP, TSH, LIPID, T7 ####[facility] [address] [id number]. Lucille Lama GLYCOHEMOGLOBIN A1Con 2021 ADA RECOMMENDATION SEE BELOW Normal [facility] Comment on above: Result Comment: ADA RECOMMENDED LIMIT 4.0 - 6.0 ADA THERAPEUTIC TARGET < 7.0 ACTION SUGGESTED > 7.0 Performed By: #### A 1C ####[facility] [address] [address]Dr. Lucille Lama Glucose [Mass/Vol] 120 mg/dL Normal [facility] Comment on above: Performed By: #### A 1C ####[facility] [address] [address]Dr. Lucille Lama HbA1c (Bld) [Mass fraction] 5.8 % Normal 4.5-6.2 [facility] Comment on above: Performed By: #### A 1C ####[facility] [address] [address]Dr. Lucille Lama IRONon 01-18-2022 Iron [Mass/Vol] 48.0 ug/dL Critically low 50.0-170.0 [facility] Comment on above: Performed By: #### I BRIANA #### [facility] [address] [address] [address] Lucille Lama LIPID PROFILEon 01-18-2022 CHOL-HDL RATIO NORM SEE BELOW Normal [facility] Comment on above: Result Comment: 3.3 - 4.4 LOW RISK 4.4 - 7.1 AVERAGE RISK 7.1 - 11.0 MODERATE RISK >11.0 HIGH RISK Performed By: #### C MP, TSH, LIPID, T7 ####[facility] [address] [id number] Lama Cholesterol [Mass/Vol] 217 mg/dL Critically high <=200 [facility] Comment on above: Performed By: #### C MP, TSH, LIPID, T7 ####[facility] [address] [phone]. Lucille Lama Cholesterol in HDL [Mass/Vol] 38 mg/dL Critically low 40-60 [facility] Comment on above: Performed By: #### C MP, TSH, LIPID, T7 ####[facility] [address] [phone]. Lucille Lama Cholesterol in LDL [Mass/Vol] 124.8 mg/dL Normal [facility] Comment on above: Performed By: #### C MP, TSH, LIPID, T7 ####[facility] [address] [phone]. Lucille Lama Cholesterol.total/Ch olesterol in HDL [Mass ratio] 5.7 {ratio} Normal [facility] Comment on above: Performed By: #### C MP, TSH, LIPID, T7 ####[facility] [address] [id number]. Adepatricia Lama HDL NORMAL > or = 60 mg/dl - LOW CARDIOVASCULAR RISK <40 mg/dl - HIGH CARDIOVASCULAR RISK Normal [facility] Comment on above: Performed By: #### C MP, TSH, LIPID, T7 ####[facility] [address] [phone]. Lucille Lama LDL CALC NORMAL SEE BELOW Normal [facility] Comment on above: Result Comment: <100 mg/dl OPTIMAL 100 - 129 mg/dl NEAR OR ABOVE OPTIMAL 130 - 159 mg/dl BORDERLINE HIGH 160 - 189 mg/dl HIGH >190 mg/dl VERY HIGH Performed By: #### C MP, TSH, LIPID, T7 ####[facility] [address] [phone]. Lucille Lama Triglyceride [Mass/Vol] 271 mg/dL Critically high <=150 [facility] Comment on above: Performed By: #### C MP, TSH, LIPID, T7 ####[facility] [address] [phone]. Lucille Lama VLDL CALC 54.2 mg/dL Normal [facility] Comment on above: Performed By: #### C MP, TSH, LIPID, T7 ####[facility] [address] [address]Dr. Lucille Lama PROF 14(COMP METB)on 022 Albumin [Mass/Vol] 3.4 g/dL Normal 3.4-5.[address] [facility] Comment on above: Performed By: #### C MP, TSH, LIPID, T7 ####[facility] [address] [address]Dr. Lucille Lama Albumin/Globulin [Mass ratio] 0.8 {ratio} Normal [facility] Comment on above: Performed By: #### C MP, TSH, LIPID, T7 ####[facility] [address] [address]Dr. Lucille Lama ALP [Catalytic activity/Vol] 115 U/L Normal 46-116 [facility] Comment on above: Performed By: #### C MP, TSH, LIPID, T7 ####[facility] [address] [place], [place] [address]Dr. Lucille Lama ALT [Catalytic activity/Vol] 35 U/L Normal 14-59 [facility] Comment on above: Performed By: #### C MP, TSH, LIPID, T7 ####[facility] [address] [address]Dr. Lucille Lama Anion gap [Moles/Vol] 11.4 mmol/L Normal [facility] Comment on above: Performed By: #### C MP, TSH, LIPID, T7 ####[facility] [address] [address]Dr. Lucille Lama AST [Catalytic activity/Vol] 16 U/L Normal 15-37 [facility] Comment on above: Performed By: #### C MP, TSH, LIPID, T7 ####[facility] [address] [address]Dr. Lucille Lama Bilirubin [Mass/Vol] 0.5 mg/dL Normal 0.2-1.0 [facility] Comment on above: Performed By: #### C MP, TSH, LIPID, T7 ####[facility] [address] [phone]. Lucille Lama Calcium [Mass/Vol] 9.0 mg/dL Normal 8.5-10.1 [facility] Comment on above: Performed By: #### C MP, TSH, LIPID, T7 ####[facility] [address] [phone]. Lucille Lama Chloride [Moles/Vol] 103 mmol/L Normal 98-107 [facility] Comment on above: Performed By: #### C MP, TSH, LIPID, T7 ####[facility] [address] [address]Dr. Lucille Lama CO2 [Moles/Vol] 26.4 mmol/L Normal 21.0-32.0 [facility] Comment on above: Performed By: #### C MP, TSH, LIPID, T7 ####[facility] [address] [address]Dr. Lucille Lama Creatinine [Mass/Vol] 0.76 mg/dL Normal 0.55-1.02 [facility] Comment on above: Performed By: #### C MP, TSH, LIPID, T7 ####[facility] [address] [address]Dr. Lucille Lama EGFR-AF IRANIAN >60 Normal >=60 [facility] Comment on above: Performed By: #### C MP, TSH, LIPID, T7 ####[facility] [address] [address]Dr. Lucille Lama EGFR-NON AF IRANIAN >60 Normal >=60 [facility] Comment on above: Performed By: #### C MP, TSH, LIPID, T7 ####[facility] [address] [phone]. Lucille Lama Globulin (S) [Mass/Vol] 4.2 g/dL Normal [facility] Comment on above: Performed By: #### C MP, TSH, LIPID, T7 ####[facility] [address] [phone]. Lucille Lama Glucose [Mass/Vol] 89 mg/dL Normal 74-106 [facility] Comment on above: Performed By: #### C MP, TSH, LIPID, T7 ####[facility] [address] [address]Dr. Lucille Lama Potassium [Moles/Vol] 3.8 mmol/L Normal 3.5-5.1 [facility] Comment on above: Performed By: #### C MP, TSH, LIPID, T7 ####[facility] [address] [address]Dr. Lucille Lama Protein [Mass/Vol] 7.6 g/dL Normal 6.4-8.2 [facility] Comment on above: Performed By: #### C MP, TSH, LIPID, T7 ####[facility] [address] [address]Dr. Lucille Lama Sodium [Moles/Vol] 137 mmol/L Normal 136-145 [facility] Comment on above: Performed By: #### C MP, TSH, LIPID, T7 ####[facility] [address] [address]Dr. Lucille Lama Urea nitrogen [Mass/Vol] 8.0 mg/dL Normal 7.0-18.0 [facility] Comment on above: Performed By: #### C MP, TSH, LIPID, T7 ####[facility] [address] [address]Dr. Lucille Lama Urea nitrogen/Creatinine [Mass ratio] 10.5 mg/mg Normal [facility] Comment on above: Performed By: #### C MP, TSH, LIPID, T7 ####[facility] [address] [address]Dr. Lucille Lama TSHon 01-18-2022 TSH 1.277 uIU/mL Normal 0.358-3.740 [facility] Comment on above: Performed By: #### C MP, TSH, LIPID, T7 ####[facility] [address] [address]Dr. Lucille Lama CBC AUTO DIFFon 01-07-2022 BASO # 0.1 103/ul Normal 0.0-0.1 [facility] Comment on above: Performed By: #### C BC ####[facility] [address] [phone]. Lucille Lama Basophils/100 WBC (Bld) 0.4 % Normal 0.2-2.0 [facility] Comment on above: Performed By: #### C BC ####[facility] [address] [place], [place] [address]Dr. Lucille Lama EO # 0.0 103/ul Normal 0.0-0.7 [facility] Comment on above: Performed By: #### C BC ####[facility] [address] [place], [place] [address]Dr. Lucille Lama Eosinophils/100 WBC (Bld) 0.2 % Critically low 0.9-7.0 [facility] Comment on above: Performed By: #### C BC ####[facility] [address] [place], [place] [address]Dr. Lucille Lama Erythrocyte distribution width (RBC) [Ratio] 12.4 % Normal 11.0-15.0 [facility] Comment on above: Performed By: #### C BC ####[facility] [address] [place], [place] [address]Dr. Lucille Lama Hematocrit (Bld) [Volume fraction] 44.5 % Normal 36.0-48.0 [facility] Comment on above: Performed By: #### C BC ####[facility] [address] [place], [place] [address]Dr. Lucille Lama Hemoglobin (Bld) [Mass/Vol] 14.2 g/dL Normal 12.0-16.0 [facility] Comment on above: Performed By: #### C BC ####[facility] [address] [place], [place] [address]Dr. Lucille Lama IG # 0.05 10e3/ul Critically high 0.00-0.03 [facility] Comment on above: Performed By: #### C BC ####[facility] [address] [place], [place] [address]Dr. Lucille Lama IG % 0.4 % Normal 0.0-0.5 [facility] Comment on above: Performed By: #### C BC ####[facility] [address] [phone] Lucille Kelby LYMPH # 1.7 103/ul Normal 1.2-3.8 [facility] Comment on above: Performed By: #### C BC ####[facility] [address] [phone]. Lucille Lama Lymphocytes/100 WBC (Bld) 13.5 % Critically low 20.5-60.0 [facility] Comment on above: Performed By: #### C BC ####[facility] [address] [address]DrJessica Lama MANUAL DIFF REQ NO Normal [facility] Comment on above: Performed By: #### C BC ####[facility] [address] [phone]. Lucille Lama MCH (RBC) [Entitic mass] 26.5 pg Critically low 26.7-34.0 [facility] Comment on above: Performed By: #### C BC ####[facility] [address] [phone]. Lucille Lama MCHC (RBC) [Mass/Vol] 31.9 g/dL Normal 29.9-35.2 [facility] Comment on above: Performed By: #### C BC ####[facility] [address] [phone] Lama MCV (RBC) [Entitic vol] 83.0 fL Normal 81.0-99.0 [facility] Comment on above: Performed By: #### C BC ####[facility] [address] [phone] Lama MONO # 0.5 103/ul Normal 0.3-0.8 [facility] Comment on above: Performed By: #### C BC ####[facility] [address] [phone] Lama Monocytes/100 WBC (Bld) 4.1 % Normal 1.7-12.0 [facility] Comment on above: Performed By: #### C BC ####[facility] [address] [phone]. Lucille Lama NEUT # 10.0 103/ul Critically high 1.4-6.5 [facility] Comment on above: Performed By: #### C BC ####[facility] [address] [phone]. Lucille Lama Neutrophils/100 WBC (Bld) 81.4 % Critically high 43.0-75.0 [facility] Comment on above: Performed By: #### C BC ####[facility] [address] [phone]. Lucille Lama Platelet mean volume (Bld) [Entitic vol] 8.8 fL Critically low 9.5-13.5 [facility] Comment on above: Performed By: #### C BC ####[facility] [address] [address]Dr. Lucille Lama PLT 375 103/ul Normal 150-450 [facility] Comment on above: Performed By: #### C BC ####[facility] [address] [phone]. Lucille Lama RBC 5.36 106/ul Normal 4.20-5.40 [facility] Comment on above: Performed By: #### C BC ####[facility] [address] [phone]. Lucille Lama WBC 12.3 103/ul Critically high 4.0-11.0 [facility] Comment on above: Performed By: #### C BC ####[facility] [address] [phone]. Lucille Lama LACTATE/LACTIC ACIDon 2021 Lactate [Moles/Vol] 1.3 mmol/L Normal 0.4-1.9 [facility] Comment on above: Performed By: #### L ACT #### [facility] [address] [id number] Lucille Lama CARDIAC SANDY ADMITon 022 CK [Catalytic activity/Vol] 36 U/L Normal 26-192 [facility] Comment on above: Performed By: #### T ZENAIDA MASONDM, CMP ####[facility] [address] [address]Dr. Lucille Lama CK.MB [Mass/Vol] 0.63 ng/mL Normal <=3.60 [facility] Comment on above: Performed By: #### T ZENAIDA MASONDM, CMP ####[facility] [address] [address]Dr. Lucille Lama HSTROP 5.5 pg/mL Normal 4.0-51.3 [facility] Comment on above: Result Comment: CUT- OFF POINTS HAVE BEEN ESTABLISHED BASED ON THE FOURTH UNIVERSAL DEFINITIONS OF MYOCARDIAL INFARCTION. THE UPPER REFERENCE LIMIT (URL) OF TROPONIN, DEFINED THE 99TH PERCENTILE OF cTnI DISTRIBUTION IN A REFERENCE POPULATION, HAS BEEN CONFIRMED THE DECISION THRESHOLD FOR PR DIAGNOSIS. Performed By: #### T ZENAIDA MASONDM, CMP ####[facility] [address] [address]DrJessica Lama FREDA 30 ng/mL Normal 9-82 [facility] Comment on above: Performed By: #### T BRADY MASON, CMP ####[facility] [address] [address]Dr. Lucille Lama CBC AUTO DIFFon 11-15-2021 BASO # 0.0 103/ul Normal 0.0-0.1 [facility] Comment on above: Performed By: #### C BC #### [facility] [address] [place] [address] Dr. Lucille Lama Basophils/100 WBC (Bld) 0.4 % Normal 0.2-2.0 [facility] [facility] Comment on above: Performed By: #### C BC #### [facility] [address] [place] [address] Dr. Lucille Lama EO # 0.1 103/ul Normal 0.0-0.7 [facility] Comment on above: Performed By: #### C BC #### [facility] [address] [place] [address] Dr. Lucille Lama Eosinophils/100 WBC (Bld) 1.0 % Normal 0.9-7.0 [facility] Comment on above: Performed By: #### C BC #### [facility] [address] [place] [address] Dr. Lucille Lama Erythrocyte distribution width (RBC) [Ratio] 12.6 % Normal 11.0-15.0 [facility] Comment on above: Performed By: #### C BC #### [facility] [address] [place] [address] Dr. Lucille Lama Hematocrit (Bld) [Volume fraction] 43.1 % Normal 36.0-48.0 [facility] Comment on above: Performed By: #### C BC #### [facility] [address] [place] [address] Dr. Lucille Lama Hemoglobin (Bld) [Mass/Vol] 13.4 g/dL Normal 12.0-16.0 [facility] Comment on above: Performed By: #### C BC #### [facility] [address] [place] [address] Dr. Lucille Lama IG # 0.03 10e3/ul Normal 0.00-0.03 [facility] Comment on above: Performed By: #### C BC #### [facility] [address] [place] [address] Dr. Lucille Lama IG % 0.4 % Normal 0.0-0.5 [facility] Comment on above: Performed By: #### C BC #### [facility] [address] [place] [address] Dr. Lucille Lama LYMPH # 1.3 103/ul Normal 1.2-3.8 [facility] Comment on above: Performed By: #### C BC #### [facility] [address] [place] [address] Dr. Lucille Lama Lymphocytes/100 WBC (Bld) 15.4 % Critically low 20.5-60.0 [facility] Comment on above: Performed By: #### C BC #### [facility] [address] [place] [address] Dr. Luclile Lama MANUAL DIFF REQ NO Normal [facility] Comment on above: Performed By: #### C BC #### [facility] [address] [place] [address] Dr. Lucille Lama MCH (RBC) [Entitic mass] 26.7 pg Normal 26.7-34.0 [facility] Comment on above: Performed By: #### C BC #### [facility] [address] [place] [address] Dr. Lucille Lama MCHC (RBC) [Mass/Vol] 31.1 g/dL Normal 29.9-35.2 [facility] Comment on above: Performed By: #### C BC #### [facility] [address] [place] [address] Dr. Lucille Lama MCV (RBC) [Entitic vol] 86.0 fL Normal 81.0-99.0 [facility] Comment on above: Performed By: #### C BC #### [facility] [address] [place] [address] Dr. Lucille Lama MONO # 0.4 103/ul Normal 0.3-0.8 [facility] Comment on above: Performed By: #### C BC #### [facility] [address] [place] [address] Dr. Lucille Lama Monocytes/100 WBC (Bld) 4.8 % Normal 1.7-12.0 [facility] Comment on above: Performed By: #### C BC #### [facility] [address] [place] [address] Dr. Lucille Lama NEUT # 6.5 103/ul Normal 1.4-6.5 [facility] Comment on above: Performed By: #### C BC #### [facility] [address] [place] [address] Dr. Lucille Lama Neutrophils/100 WBC (Bld) 78.0 % Critically high 43.0-75.0 [facility] Comment on above: Performed By: #### C BC #### [facility] [address] [place] [address] Dr. Lucille Lama Platelet mean volume (Bld) [Entitic vol] 8.5 fL Critically low 9.5-13.5 [facility] Comment on above: Performed By: #### C BC #### [facility] [address] [place] [address] Dr. Lucille Lama PLT 375 103/ul Normal 150-450 [facility] Comment on above: Performed By: #### C BC #### [facility] [address] [place] [address] Dr. Lucille Lama RBC 5.01 106/ul Normal 4.20-5.40 [facility] Comment on above: Performed By: #### C BC #### [facility] [address] [place] [address] Dr. Lucille Lama WBC 8.4 103/ul Normal 4.0-11.0 [facility] Comment on above: Performed By: #### C BC #### [facility] [address] [place] [address] HEAD WO CONon [...] STEVENSON COTTRELL Date: 2021-11-14 23:28 Normal [facility] PROF 14(COMP METB)on 022 Albumin [Mass/Vol] 3.5 g/dL Normal 3.4-5.[address] [facility] Comment on above: Performed By: #### T BRADY MASON, CMP #### [facility] [address] [place] [address] Dr. Lucille Lama Albumin/Globulin [Mass ratio] 0.9 {ratio} Normal [facility] Comment on above: Performed By: #### T ZENAIDA MASONDM, CMP #### [facility] [address] [address] [address] Lucille Lama ALP [Catalytic activity/Vol] 133 U/L Critically high 46-116 [facility] Comment on above: Performed By: #### T BRADY MASON, CMP #### [facility] [address] [place] [address] Dr. Lucille Lama ALT [Catalytic activity/Vol] 28 U/L Normal 14-59 [facility] Comment on above: Performed By: #### T BRADY MASON, CMP #### [facility] [address] [place] [address] Dr. Lucille Lama Anion gap [Moles/Vol] 9.0 mmol/L Normal [facility] Comment on above: Performed By: #### T BRADY MASON, CMP #### [facility] [address] [place] [address] Dr. Lucille Lama AST [Catalytic activity/Vol] 15 U/L Normal 15-37 [facility] Comment on above: Performed By: #### T BRADY MASON, CMP #### [facility] [address] [place] [address] Dr. Lucille Lama Bilirubin [Mass/Vol] 0.6 mg/dL Normal 0.2-1.0 [facility] Comment on above: Performed By: #### T BRADY MASON, CMP #### [facility] [address] [place] [address] Dr. Lucille Lama Calcium [Mass/Vol] 8.5 mg/dL Normal 8.5-10.1 [facility] Comment on above: Performed By: #### T ZENAIDA MASONDM, CMP #### [facility] [address] [address] [address] Lucille Lama Chloride [Moles/Vol] 101 mmol/L Normal 98-107 [facility] Comment on above: Performed By: #### T BRADY MASON, CMP #### [facility] [address] [address] [address] Lucille Lama CO2 [Moles/Vol] 27.6 mmol/L Normal 21.0-32.0 [facility] Comment on above: Performed By: #### T BRADY MASON, CMP #### [facility] [address] [address] [address] Lucille Lama Creatinine [Mass/Vol] 0.81 mg/dL Normal 0.55-1.02 [facility] Comment on above: Performed By: #### T BRADY MASON, CMP #### [facility] [address] [place] [address] Dr. Lucille Lama EGFR-AF IRANIAN >60 Normal >=60 [facility] Comment on above: Performed By: #### T BRADY MASON, CMP #### [facility] [address] [place] [address] Dr. Lucille Lama EGFR-NON AF IRANIAN >60 Normal >=60 [facility] Comment on above: Performed By: #### T BRADY MASON, CMP #### [facility] [address] [place] [address] Dr. Lucille Lama Globulin (S) [Mass/Vol] 4.1 g/dL Normal [facility] Comment on above: Performed By: #### T BRADY MASON, CMP #### [facility] [address] [place] [address] Dr. Lucille Lama Glucose [Mass/Vol] 114 mg/dL Critically high 74-106 [facility] Comment on above: Performed By: #### T BRADY MASON, CMP #### [facility] [address] [place] [address] Dr. Lucille Lama Potassium [Moles/Vol] 3.6 mmol/L Normal 3.5-5.1 [facility] Comment on above: Performed By: #### T SH, CMADM, CMP #### [facility] [address] [place] [address] Dr. Lucille Lama Protein [Mass/Vol] 7.6 g/dL Normal 6.1-8.[address] [facility] Comment on above: Performed By: #### T MARLON, CMADM, CMP #### [facility] [address] [place] [address] Dr. Lucille Lama Sodium [Moles/Vol] 134 mmol/L Critically low 136-145 [facility] Comment on above: Performed By: #### T ZENAIDA MASONDM, CMP #### [facility] [address] [place] [address] Dr. Lucille Lama Urea nitrogen [Mass/Vol] 9.0 mg/dL Normal 7.0-18.0 [facility] Comment on above: Performed By: #### T ZENAIDA MASONDM, CMP #### [facility] [address] [place] [address] Dr. Lucille Lama Urea nitrogen/Creatinine [Mass ratio] 11.1 mg/mg Normal [facility] Comment on above: Performed By: #### T BRADY MASON, CMP #### [facility] [address] [place] [address] Dr. Lucille Lama TSHon 11-15-2021 TSH 0.963 uIU/mL Normal 0.470-4.680 [facility] Comment on above: Performed By: #### T BRADY MASON, CMP #### [facility] [address] [place] [address] Dr. Lucille Lama TSH RANGE SEE BELOW Normal [facility] Comment on above: Result Comment: <0.3 4 UIU/ml HYPERTHYROID 0.34-5.60 UIU/ml EUTHYROID >5.60 UIU/ml HYPOTHYROID Performed By: #### T ZENAIDA MASONDM, CMP #### [facility] [address] [place] [address] Dr. Lucille Lama XR CHEST 2 Von [...] by: STEVENSON COTTRELL Date: 2021-11-14 23:29 Normal [facility] Vital Signs Date Time Vital Sign Value Performing Clinician Facility 02-28-2025 09:20-0400 Body height 175.26 cm Cm Ardon MD Work Phone: [facility] 02-28-2025 09:20-0400 Body mass index (BMI) [Ratio] 32.5 kg/m2 Cm Ardon MD Work Phone: [facility] 02-28-2025 09:20-0400 Body temperature 98 [degF] Cm Ardon MD Work Phone: [facility] 02-28-2025 09:20-0400 Body weight 99.84 kg Cm Ardon MD Work Phone: [facility] 02-28-2025 09:20-0400 Diastolic blood pressure 74 mm[Hg] Cm Ardon MD Work Phone: [facility] 02-28-2025 09:20-0400 Heart rate 75 /min Cm Ardon MD Work Phone: [facility] 02-28-2025 09:20-0400 Respiratory rate 18 /min Cm Ardon MD Work Phone: [facility] 02-28-2025 09:20-0400 SaO2% (BldA) [Mass fraction] 98 % Cm Ardon MD Work Phone: [facility] 02-28-2025 09:20-0400 Systolic blood pressure 111 mm[Hg] Cm Ardon MD Work Phone: [facility] 03-10-2024 15:31-0400 Blood Pressure Location Jessee AHUMADA [facility] 03-10-2024 15:31-0400 Diastolic blood pressure 76 mm[Hg] Jessee NILL [facility] 03-10-2024 15:31-0400 Heart rate 72 /min Jessee NILL [facility] 03-10-2024 15:31-0400 Respiratory rate 16 /min Jessee NILL [facility] 03-10-2024 15:31-0400 Systolic blood pressure 126 mm[Hg] Jessee NILL [facility] 04-27-2023 13:45-0400 Body height 177.8 cm Malinda Marion Other [facility] Other 04-27-2023 13:45-0400 Body mass index (BMI) [Ratio] 35.01 kg/m2 Malinda Sanam Other [facility] Other 04-27-2023 13:45-0400 Body temperature 98.1 [degF] Malinda Sanam Other [facility] Other 04-27-2023 13:45-0400 Body weight 110.68 kg Malinda Sanam Other [facility] Other 04-27-2023 13:45-0400 Diastolic blood pressure 79 mm[Hg] Malinda Sanam Other [facility] Other 04-27-2023 13:45-0400 Respiratory rate 18 /min Malinda Marion Other [facility] Other 04-27-2023 13:45-0400 SaO2% (BldA) [Mass fraction] 96 % Malinda Marion Other [facility] Other 04-27-2023 13:45-0400 Systolic blood pressure 142 mm[Hg] Malinda Marion Other [facility] Other Encounters Encounter Date Encounter Type Care Provider Facility Start: 02-28-2025 End: 02-28-2025 ambulatory Cm Ardon MD Work Phone: [facility] Work Phone: Start: 02-28-2025 End: 02-28-2025 Patient encounter procedure Clarita Quintanilla APRN [facility] Work Phone: Start: 04-15-2024 End: 04-15-2024 ambulatory Jessee R ROSARIOL Facility:[id number] Start: 03-10-2024 End: 03-10-2024 ambulatory Jessee R NILL Facility: [facility] Start: 03-10-2024 End: 03-10-2024 Patient encounter procedure Jessee R NILL [facility] Start: 02-06-2024 ambulatory Jessee NILL Facility: [facility] [place] Start: 04-27-2023 End: 04-27-2023 ambulatory Malinda Marion Other [facility] Other Start: 04-27-2023 Office outpatient vi sit 15 minutes Malinda Marion [facility] Start: 02-21-2022 End: 02-22-[address] CM ARDON Facility:[facility] Start: 01-25-2022 Encounter for genera l adult medical examination without abnormal findings DR CM ARDON [facility] Start: 01-24-2022 End: 01-24-[address] [...] SARS-CoV-2 (COVID-19 ) mRNA BNT-162b2 vax Jessee NILL [facility] 03-25-2021 SARS-CoV-2 (COVID-19 ) mRNA BNT-162b2 vax Jessee NILL [facility] Payers Date Payer Category Payer Unknown [id number] 2.16.84 [id number] 1970 Unknown [id number] 2.16.84 [id number] 1970 Unknown [id number] 2.16.84 [id number] 1970 Unknown [id number] 2.16.84 [id number] 1970 Unknown [id number] 2.16.84 [id number] 1970 Unknown [id number] 2.16.84 [id number] 1970 Unknown [id number] 2.16.8 [id number] 1970 Unknown [id number] 2.16.8 [id number] 1959 Unknown [id number] Social History Date Type Detail Facility Unknown if ever smoked [facility] Other Sex Assigned At [facility] Start: 03-10-2024 End: 02-28-2025 Tobacco smoking status Ex-smoker (finding) [facility] [place] Tobacco smoking status Never Miguelina Escobar [facility] [place] Sex Female (finding) [facility] Start: 1970 Sex Assigned At Female F [facility] Functional Status Date Assessment Result Facility 03-10-2024 Functional Status N/A [facility]Sary [facility] [place] Clinical Note 03-10-2024 Note Date & Type [...] SARS-CoV-2 (COVID-19) mRNA BNT-162b2 vax 03/25/2021 [facility] Comment on above: Result Comment: Elec tronically Signed By: BRANDYN BURCIAGA, Jessee Lopez\Date and Time Signed: 03/10/24 [...] no improvement in 2 to 3 days [facility] Other Evaluation + Plan note Note Date & Type Note Facility Evaluation + Plan note No data available for this section [facility] [place] Evaluation note Note Date & Type Note Facility Evaluation note No assessment information [facility] Work Phone: History general Narrative - Reported Note Date & Type Note Facility History general Narrative - Reported Type Medical History neuropathy Medical History thyroid disease Surgical History partial hysterectomy Surgical History C section Hospitalization History see above [facility] Other Hospital Discharge instructions Note Date & Type Note Facility Hospital Discharge instructions No data available for this section [facility] Progress note Note Date & Type Note Facility Progress note No data available for this section [facility] Reason for referral (narrative) Note Date & Type Note Facility Reason for referral (narrative) No reason for referral information available [facility] Work Phone: Summary Purpose Family History Relationship Condition Age at Onset Recorded Date/T cecilia mother Diabetes mellitus Unknown Depression Unknown Unknown Advance Directives Advance Directive Response Recorded Date/ Time Advance Directives No February 28, 2025 9:16am Chief Complaint and Reason for Visit Chief Complaint Admit Date Left second toe poss infection February 282024 9:18am Additional Source Comments INFORMATION SOURCE (unrecogn ized section and content) DATE CREATED AUTHOR 02/23/2022 [facility] DATE CREATED AUTHOR AUTHOR'S ORGANIZ ATION 04/27/2024 [facility] REASON FOR VISIT (unrecogniz ed section and content) SINUS, DRAINAGE CHEST CONGES TION Patient Care team informatio n (unrecognized section and content) Team Status: Active Member Role Status Dates Cm Ardon MD Primary Care Provider Active Team Status: Inactive Member Role Status Dates Cm Ardon MD Primary Care Provider Active Start: February 28, 2025 End: February 28, 2025 Clarita Herman APRN Attending Provider Active Start: February 28, 2025 End: February 28, 2025 Goals (unrecognized section and content) Goals may be documented in a n alternate section FOR RECORDS PERTAINING TO PATIENTS WHO ARE [...] BE BASED ON THE PRIMARY CLINICAL RECORDS. [facility]. provides no warranty or guarantee of the accuracy or completeness of information in this document.
== END 2025-03-23 09:26 | disposition home or self-care (01) ==
LOC: CT 09:25
PROVIDERS: PCP Family Medicine; Visit Provider Family Medicine
DX: Z00.00 Encounter for general adult medical examination without abnormal findings (principal); Z87.891 Personal history of nicotine dependence; R91.8 Other nonspecific abnormal finding of lung field; Z12.31 Encounter for screening mammogram for malignant neoplasm of breast; Z80.1 Family history of malignant neoplasm of trachea, bronchus and lung
CPT/HCPCS: 71271; 77063; 77067